=== PATIENT | female | born 1965 | race Caucasian/White ===

== ENCOUNTER 2021-03-31 09:22 | Emergency (ER) | payer MEDICAID, SELFPAY ==
[2021-03-31] VITALS (8 sets, daily range): BP systolic 142–178; BP diastolic 78–96; PULSE 68–101; RESP 12–17; TEMP 36.8; O2SAT 97–100; BMI 21.6
--- NOTE | 2021-03-31 09:31 | HMH.EDGENADL ---
ED Disposition Clinical Impression: Gastritis Qualifiers: Gastritis type: unspecified gastritis Chronicity: unspecified Gastritis bleeding: presence of bleeding unspecified Qualified Code(s): K29.70 - Gastritis, unspecified, without bleeding Disposition: Home, Self-Care Condition on Discharge: Good Referrals: Johanna England MD [Primary Care Provider] - 3 days Time of Disposition: 12:36 - Critical Care Critical Care Time: No Attestation: On , the high probability of a clinically significant, sudden or life threatening deterioration of the following system(s) required my full and direct attention, intervention and personal management. The time I documented below is in addition to time spent performing reported procedures but includes the following listed in this critical care notation. Medical Decision Making - Medical Records Medical records reviewed: Yes: I reviewed the patient's medical records. - Fernando Inquiry Pt receiving controlled substance: No Vital Signs: 03/31/21 09:23 03/31/21 09:59 03/31/21 10:02 Temperature 98.3 F Temperature Source Oral Pulse Rate 97 H 81 Pulse Rate [Right] 101 H Respiratory Rate 14 16 Blood Pressure 157/96 H 172/90 H Blood Pressure [Right Arm] 166/95 H Blood Pressure Mean 121 Blood Pressure Mean [Right Arm] 118 Blood Pressure Source Automatic Cuff Blood Pressure Position Sitting 02 Sat by Pulse Oximetry 98 97 100 Oxygen Delivery Method Room Air Room Air 03/31/21 10:15 03/31/21 11:00 03/31/21 11:45 Temperature Temperature Source Pulse Rate 85 68 91 H Pulse Rate [Right] Respiratory Rate 12 17 16 Blood Pressure 178/78 H 151/80 H 159/79 H Blood Pressure [Right Arm] Blood Pressure Mean Blood Pressure Mean [Right Arm] Blood Pressure Source Blood Pressure Position 02 Sat by Pulse Oximetry 100 99 98 Oxygen Delivery Method 03/31/21 12:00 Temperature Temperature Source Pulse Rate 75 Pulse Rate [Right] Respiratory Rate 13 Blood Pressure 165/85 H Blood Pressure [Right Arm] Blood Pressure Mean Blood Pressure Mean [Right Arm] Blood Pressure Source Blood Pressure Position 02 Sat by Pulse Oximetry 99 Oxygen Delivery Method - Lab Data Lab results reviewed: Yes: I reviewed the patient's lab results. Lab Results 03/31/21 09:50: WBC 5.7, RBC 4.55, Hgb 13.7, Hct 40.6, MCV 89.3, MCH 30.1, MCHC 33.7, RDW 14.0, Plt Count 189, MPV 9.6, Neut % (Auto) 71.8, Lymph % (Auto) 21.3, [place] % (Auto) 4.9, Eos % (Auto) 1.7, Baso % (Auto) 0.3, Neut # (Auto) 4.1, Lymph # (Auto) 1.2, [place] # (Auto) 0.3, Eos # (Auto) 0.1, Baso # (Auto) 0.0 03/31/21 09:50: Sodium 138, Potassium 3.9, Chloride 102, Carbon Dioxide 29, Anion Gap 10.9, BUN 10, Creatinine 0.90, Estimated Creat Clear 62, Estimated GFR 65, Est GFR ( Amer) 79, Glucose 101 H, Calcium 9.4, Troponin I < 0.01 03/31/21 09:50: Total Bilirubin 0.5, Direct Bilirubin 0.3, Conjugated Bilirubin 0.0, Indirect Bilirubin 0.2, Unconjugated Bilirubin 0.3, AST 21, ALT 14, Alkaline Phosphatase 86, Total Protein 7.6, Albumin 4.3 Result diagrams: 03/31/21 09:50 03/31/21 09:50 Orders (Tests/Meds): ED MEDICATIONS Discontinued Medications Generic Name Dose Route Start Last Admin Trade Name Freq PRN Reason Stop Dose Admin Belladonna Alkaloids 60 ml 03/31/21 09:46 03/31/21 09:49 Gi Cocktail 60ml Udc PO 03/31/21 09:47 60 ml ONCE ONE Administration Ondansetron HCl 4 mg 03/31/21 10:23 03/31/21 10:25 Ondansetron 4mg/2ml Vial IV 03/31/21 10:24 4 mg ONCE ONE Administration ORDERS Category Date Time Status Troponin I Q3H Lab 03/31/21 12:30 Ordered Troponin I Q3H Lab 03/31/21 15:30 Ordered - Radiology Data #1 Image(s): Chest Image Reviewed: Yes I have reviewed radiologist's interpretation Preliminary Findings: Normal/NAD - ECG Data Tracing #1 I reviewed this ECG and interpreted as documented below: Normal sinus rhythm, 95 bpm, no ST e
--- NOTE | 2021-03-31 09:32 | XR_ITS ---
PROCEDURE: XR CHEST PORTABLE CLINICAL HISTORY: recent cath COMPARISON: No exams were available for comparison FINDINGS: The cardiomediastinal silhouette and pulmonary vascularity are within normal limits. The lungs are clear without infiltrates, suspicious nodules, or pleural effusions. There are small calcified hilar nodes and there is a small calcified granuloma right perihilar region. No acute bony abnormalities. IMPRESSION: Old granulomatous disease, no acute chest pathology Dictated by: Dr. Ej Kebede MD 03/31/2021 09:46 Dr. Ej Kebede MD in [facility] 03/31/2021 09:46
--- NOTE | 2021-03-31 09:33 | ECG_ITS ---
APPROVED REPORT Exam: Resting ECG HR:95 bpm ECG Measurements Heart Rate 95 AXES AL 136 P 75 QRSd 94 QRS 178 QT 378 T 77 QTc 475 Conclusion Normal sinus rhythm Possible Left atrial enlargement Right axis deviation Incomplete right bundle branch block Right ventricular hypertrophy Abnormal ECG Electronically signed by : Fabricio Victor, 04/01/2021 18:06:53
--- NOTE | 2021-03-31 09:58 | PC.NURSE ---
v/s delayed due to attempting IV access
[2021-03-31 10:00] LABS: Basophils % 0.3 % (0.1-2.0); Eosinophils # 0.1 K/mm3 (0.0-0.4); Eosinophils % 1.7 % (0.1-12.0); Hematocrit 40.6 % (37.0-47.0); Hemoglobin 13.7 g/dL (12.2-16.2); Lymphocytes # 1.2 K/mm3 (0.7-4.5); Lymphocytes % 21.3 % (10-50); Mean Corpuscular HGB Conc 33.7 g/dL (31.8-35.4); Mean Corpuscular Hemoglobin 30.1 pg (27.0-31.2); Mean Corpuscular Volume 89.3 fl (81-99); Mean Platelet Volume 9.6 fl (7.4-10.4); Monocytes # 0.3 K/mm3 (0.1-1.0); Monocytes % 4.9 % (1.7-9.3); Neutrophils # 4.1 K/mm3 (1.8-7.8); Neutrophils % 71.8 % (37.0-80.0); Platelet Count 189 K/mm3 (142-424); Red Blood Count 4.55 M/mm3 (4.20-5.40); White Blood Count 5.7 K/mm3 (4.8-10.8)
[2021-03-31 10:10] LABS: Anion Gap 10.9 mEq/L (5-15); Blood Urea Nitrogen 10 mg/dl (7-17); Calcium 9.4 mg/dl (8.4-10.2); Carbon Dioxide 29 mmol/L (22.0-30.0); Chloride 102 mmol/L (98-107); Creatinine Clearance Estimated 62 mL/min (50-200); Estimated Glomerular Filt Rate 65 ml/min (>60); GFR (African American) 79 ML/MIN (>60); Glucose 101 mg/dl (74-100); Potassium 3.9 mmoL/L (3.5-5.1); Sodium 138 mmol/L (136-145)
[2021-03-31 10:11] LABS: Alanine Aminotransferase 14 U/L (12-78); Albumin Level 4.3 g/dl (3.5-5.0); Alkaline Phosphatase 86 U/L (38-126); Aspartate Amino Transferase 21 U/L (14-36); Bilirubin,Direct 0.3 mg/dl (0.0-0.4); Bilirubin,Indirect 0.2 mg/dL (0.0-0.9); Bilirubin,Total 0.5 mg/dl (0.2-1.3); Bilirubin,Unconjugated 0.3 mg/dL (0.0-1.1); Total Protein,Serum 7.6 g/dl (6.3-8.2)
--- NOTE | 2021-03-31 10:17 | PC.NURSE ---
Patient complains of worsening RLQ pain. ER physician made aware
[2021-03-31 10:26] LABS: Troponin I < 0.01 ng/ml (0.00-0.034)
--- NOTE | 2021-03-31 10:35 | PC.NURSE ---
PT C/O SUDDEN ONSET OF CHEST PAIN THAT IS DIFFERENT REPEAT EKG BEING DONE PT VERY ANXIOUS , AND SHAKING
--- NOTE | 2021-03-31 11:19 | CT_ITS ---
PROCEDURE: CT ABDOMEN PELVIS WO CON CLINICAL INDICATION: RLQ PAIN COMPARISON: No exams were available for comparison TECHNIQUE: Axial images obtained with sagittal and coronal reformats. All CT scans at the facility use one or more dose reduction, viz: automated exposure control, ma/kV adjustment per patient size (including targeted exams where dose is matched to indication, i.e. head), or iterative reconstruction technique. FINDINGS: Lower thorax: No acute finding plexus scarring left posterior gutter. Cardiac exams is normal. ABDOMEN: Liver: There is a 1 cm hypodense subcortical lesion posterior aspect right lobe of the liver likely a hepatic cyst. The liver is otherwise unremarkable. Gallbladder: Post cholecystectomy Pancreas: No masses or peripancreatic fluid collections. Spleen: unremarkable Adrenals: unremarkable Kidneys/ureters: The kidneys are normal in size and no calculi and there is no obstructive uropathy. ABDOMEN & PELVIS: Stomach bowel: There is a small hiatal hernia. The stomach is unremarkable. The small bowel appears normal. Post appendectomy. There is mild scattered stool and gas seen throughout the colon. There are few scattered diverticuli of the lower descending and sigmoid colon but there is no evidence of diverticulitis. Peritoneum: No abnormal fluid collections. No obvious inflammatory changes. No free air. Lymph nodes: No enlarged lymph nodes apparent. Vasculature: There is diffuse arthrosclerotic calcification of the infrarenal aorta and proximal common iliac arteries but there is no aneurysm. Bones: No acute fracture PELVIS: Reproductive: The uterus is normal in size and retroverted. Bladder: The urinary bladder is moderately distended with urine and appears normal, there is no free fluid in the pelvis. Appendix: Post appendectomy IMPRESSION: Mild diverticulosis lower descending and sigmoid colon without diverticulitis, prominently retroverted uterus, no other significant abnormality noted Dictated by: Dr. Ej Kebede MD 03/31/2021 12:08 Dr. Ej Kebede MD in [facility] 03/31/2021 12:08
--- NOTE | 2021-03-31 11:47 | PC.NURSE ---
Pt to rad.
--- NOTE | 2021-03-31 12:22 | PC.NURSE ---
Attempted to call Dr Newberry office and they are out to lunch. Will try to call back shortly
== END 2021-03-31 12:45 | disposition home or self-care (01) ==
PROVIDERS: Emergency Provider Family Medicine; PCP Family Medicine
DX: K29.70 Gastritis, unspecified, without bleeding (principal); K21.9 Gastro-esophageal reflux disease without esophagitis; Z88.8 Allergy status to other drugs, medicaments and biological substances
CPT/HCPCS: 71045; 74176; 80048; 80076; 84484; 85025; 93005; 99282; J2405

== ENCOUNTER 2025-04-08 09:24 | Outpatient (CLI) | payer MEDICAID, SELFPAY ==
--- OUTSIDE RECORDS SUMMARY | 2025-03-31 06:47 | XMS_ITS | Encounter Summary ---
Author Organization Healthcare Address [address] [place] [address] Care Team Providers Care Client Service Manager Name Role Phone Alfa Foreman APRN Primary Care Provider [phone] Reason for Visit * Reason Comments Abdominal Pain Nausea Encounter Details Date Type Department Care Team ([facility] st Contact Info) Description 03/31/2025 6:47 AM EDT - 03/31/2025 7:09 AM EDT Emergency [facility] Emergency Department [address] [place] [address] Eloped from emergency department (Primary Dx) Discharge Disposition: Elopement Social History Tobacco Use Types Packs/Day Years Used Date Smoking Tobacco: Former Cigarettes Smokeless Tobacco: Never Comments:Quit smoking 2018 Alcohol Use Standard Drinks/Week Comments Never 0 (1 standard drink = 0.6 oz pur e alcohol) Comments No Sex and Gender Information Value Date Recorded Sex Assigned at Not on file Legal Sex Female 8:23 PM EDT Gender Identity Not on file Sexual Orientation Not on file documented as of this encounter Last Filed Vital Signs Vital Sign Reading Time Taken Comments Blood Pressure 144/93 03/31/2025 6:46 AM EDT Pulse 97 03/31/2025 6:46 AM EDT Temperature 36.4 C (97.6 F) 03/31/2025 6:46 AM EDT Respiratory Rate 14 03/31/2025 6:46 AM EDT Oxygen Saturation 99% 03/31/2025 6:46 AM EDT Inhaled Oxygen Concentration - - Weight - - Height - - Body Mass Index - - documented in this encounter Medications at Time of Discharge cholecalciferol 10 MCG (400 UNIT) tablet Take 800 Units by mouth 1 (one) time each day. 05/25/2021 clopidogrel (Plavix) 75 MG tablet TAKE ONE (1) TABLET (75 MG) BY ORAL ROUTE ONCE DAILY 08/04/2021 diphenhydrAMINE (Benadryl Allergy) 25 MG capsule Take 1 capsule by mouth every 6 hours as needed for allergies or itching. 01/06/2017 GNP Aspirin Low Dose 81 MG EC tablet TAKE ONE (1) TABLET EVERY DAY 01/22/2021 HYDROcodone-acet aminophen ([place]) 5-325 MG tablet Take 1 tablet (5 mg of hydrocodone) by mouth 2 (two) times a day if needed for moderate pain. multivitamin (Theragran-M) tablet Take 1 tablet by mouth daily. nitroglycerin (Nitrostat) 0.4 MG SL tablet DISSOLVE ONE TABLET ON TONGUE NEEDED FOR CHEST PAIN. MAY REPEAT EVERY 5 MINS X 3 DOSES. NO RELIEF, CALL 03/25/2021 ProAir HFA 108 (90 Base) MCG/ACT inhaler INHALE TWO (2) PUFFS EVERY 4-6 HOURS BY INHALATION ROUTE NEEDED. 07/12/2021 documented as of this encounter Miscellaneous Notes * ED Provider Notes - Mike Mayorga, - 03/31/2025 6:41 AM EDT Images from the original note were not included. - HPI Chief Complaint Patient presents with Abdominal Pain Nausea This is a 60-year-old female patient who presented to the emergency department for abdominal pain per triage note. Per triage note the patient has reported gallstones. Prior to obtaining history or performing a physical exam the patient eloped from the emergency department. I was unable to have a [id number] encounter with the patient prior to her leaving Patient History Past Medical History[1] Surgical History[2] Family History[3] Social History[4] Allergies: Allergies[5] Physical Exam ED Triage Vitals [03/31/25 0646] Temp Heart Rate Resp BP 36.4 ??C (97.6 ??F) 97 14 (!) 144/93 SpO2 Temp Source Heart Rate Source Patient Position 99 % Oral -- Sitting BP Location FiO2 (%) Right arm -- Physical Exam Unable to perform secondary to patient eloping prior to [id number] assessment No data recorded ED Course & MDM - Assessment: 60 y.o. female presents to ED with complaint of abdominal pain, per triage note Prior to my [id number] encounter with the patient and prior to obtaining any history or performing any physical exam she eloped from the emergency department. Clinical Impressions as of 04/01/25 1412 Eloped from emergency department Ultimately, this patient was Eloped ED Prescriptions None Disposition Patient Directed Discharge Pt eloped - [1] Past Medical History: Diagnosis Date COPD (chronic obstructive pulmonary disease) (CMS/[facility]) Coronary artery disease Diverticulitis of intestine, part unspecified, without perforation or abscess without bleeding Diverticulitis Nonischemic cardiomyopathy (CMS/[facility]) s/p ICD 01/2023 Personal history of other diseases of the digestive system History of ulcerative colitis Personal history of other diseases of the musculoskeletal system and connective tissue History of arthritis Personal history of other endocrine, nutritional and metabolic disease History of hypothyroidism PONV (postoperative nausea and vomiting) [2] Past Surgical History: Procedure Laterality Date APPENDECTOMY N/A Appendectomy from [facility] CARDIAC CATHETERIZATION COLONOSCOPY CORONARY ANGIOPLASTY DILATION AND CURETTAGE OF UTERUS N/A Dilation And Curettage from [facility] ERCP GALLBLADDER SURGERY INSERT / REPLACE / REMOVE PACEMAKER OTHER SURGICAL HISTORY N/A Diagnostic Esophagogastroduodenoscopy from [facility] TUBAL LIGATION N/A Tubal Ligation from [facility] [3] Family History Problem Relation Name Age of Onset Conversions - Other Mother Back problem Thyroid disease Mother Heart disease Father Thyroid disease Sister Cardiac disorder Other Hypertension Other Thyroid disease Other Anesthesia problems Neg Hx Malig Hyperthermia Neg Hx [4] Tobacco Use Smoking status: Former Types: Cigarettes Smokeless tobacco: Never Tobacco comments: Quit smoking 2017 Vaping Use Vaping status: Never Used Substance Use Topics Alcohol use: Never Drug use: Never [5] Allergies Allergen Reactions Iv Contrast Angioedema Chest pain, facial swelling. Has tolerated contrast with premedication in the past Penicillins Swelling Repatha [Evolocumab] Anaphylaxis Statins Swelling Dilaudid [Hydromorphone] Nausea Levofloxacin Unknown - Patient states they do not know rxn details Lisinopril Unknown - Patient states they do not know rxn details Metoprolol Unknown - Patient states they do not know rxn details Nitrofurantoin Unknown - Patient states they do not know rxn details Mike Mayorga, Resident 04/01/25 1412 Cosigned by Jessee Torres MD at 04/02/2025 11:33 AM EDT Associated attestation - Jessee Torres MD - 04/02/2025 11:33 AM EDT I saw and evaluated the patient with the resident/fellow. I discussed the case with the resident/fellow and agree with the findings and plan as documented. * ED Triage Notes - Marek Briggs RN - 03/31/2025 6:41 AM EDT Pt has hx of gallstones, endorsing nausea and RUQ abd pain x1 month. documented in this encounter Plan of Treatment Not on file documented as of this encounter Visit Diagnoses Diagnosis Eloped from emergency department- Primary documented in this encounter Care Teams Client Service Manager Relationship Specialty Start Date End Date Alfa Foreman APRN [address] [place] [id number] PCP - General 02/19/21 documented as of this encounter
--- OUTSIDE RECORDS SUMMARY | 2025-04-08 09:26 | XMS_ITS | Encounter Summary ---
Author Organization [facility] ([place], [place], [place], [place]) Address [address] [place] [address] Care Team Providers Care Business Systems Manager Name Role Phone Ivory Sam APRN Primary Care Provider [phone] Encounter Details Date Type Department Care Team (Late st Contact Info) Description 07/27/2021 Transcribed Document [facility] [place] Family Medicine [address] [place] [address] ProviderOtcavio MD [address] [place] [address] Social History Tobacco Use Types Packs/Day Years Used Date Smoking Tobacco: Never Assessed Comments Unknown Sex and Gender Information Value Date Recorded Sex Assigned at Female 04/05/2022 12:50 PM CDT Legal Sex Female 12:50 PM CDT Gender Identity Female 04/05/2022 12:50 PM CDT Sexual Orientation Straight 09/12/2022 10 :24 AM 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 Name: ROSALEE YOUNG/Sex: 1965 Female Med Rec #: [id number] Physician: DEEP ARREOLA MD Financial #: [id number] Pt. Type: E Room/Bed: [facility] [place]/ Admit/Disch: 07/27/21 07:07:00 - Institution: [facility] [place] Endo - Case Attendance Entry 1 Entry 2 Entry 3 Case Attendee DEEP ARREOLA MD Edmundson, Stephanie, RN Alka Mccormack Rn Role Performed Surgeon/Proceduralist, Power Crane Operator, First Power Crane Operator, Second First Time In 07/27/21 08:24:00 07/27/21 08:24:00 07/27/21 08:24:00 Time Out 07/27/21 08:40:00 07/27/21 08:40:00 07/27/21 08:40:00 Procedure Colonoscopy Colonoscopy Colonoscopy Other Attendee Superficial Wound Closed By: Last Modified By: Flores Prince Edmundson, Stephanie, Edmundson, Stephanie, JOSE 07/27/21 08:38:05 RN 07/27/21 08:38:05 RN 07/27/21 08:38:05 Entry 4 Entry 5 Entry 6 Case Attendee Cynthia Tinsley QURESHI, HERA, DO RODRIGUEZ, AMARILYS Reza, NA BIOMEDICAL ENGINEERING SUPERVISOR Role Performed Scrub, First Anesthesiologist of COMMUNICATION CLERK/Nurse Medicaid Business Analyst Record Time In 07/27/21 08:24:00 07/27/21 08:24:00 07/27/21 08:24:00 Time Out 07/27/21 08:40:00 07/27/21 08:40:00 07/27/21 08:40:00 Procedure Colonoscopy Colonoscopy Colonoscopy Other Attendee Superficial Wound Closed By: Last Modified By: Flores Prince Edmundson, Stephanie, Edmundson, Stephanie, JOSE 07/27/21 08:38:05 RN 07/27/21 08:38:05 RN 07/27/21 08:38:05 [facility] [place] Endo - Case Attendance Audit 07/27/21 08:38:05 Cigar Making Supervisor: [id number] Modifier: [id number] 1 <+> Time Out 1 <*> Procedure Colonoscopy 2 <+> Time Out 2 <*> Procedure Colonoscopy 3 <+> Time Out 3 <*> Procedure Colonoscopy 4 <+> Time Out 4 <*> Procedure Colonoscopy 5 <+> Time Out 5 <*> Procedure Colonoscopy 6 <+> Time Out 6 <*> Procedure Colonoscopy 07/27/21 08:25:52 Cigar Making Supervisor: [id number] Modifier: [id number] 1 <+> Time In 1 <*> Procedure Colonoscopy 2 <+> Time In 2 <*> Procedure Colonoscopy 3 <+> Time In 3 <*> Procedure Colonoscopy 4 <+> Time In 4 <*> Procedure Colonoscopy 5 <+> Time In 5 <*> Procedure Colonoscopy 6 <+> Time In 6 <*> Procedure Colonoscopy 07/27/21 08:20:19 Cigar Making Supervisor: [id number] Modifier: [id number] <+> 1 Procedure 2 <*> Procedure Colonoscopy 3 <*> Procedure Colonoscopy 4 <*> Procedure Colonoscopy 5 <*> Procedure Colonoscopy 6 <*> Procedure Colonoscopy 07/27/21 08:16:15 Cigar Making Supervisor: [id number] Modifier: [id number] <+> 6 Case Attendee <+> 6 Role Performed <+> 6 Procedure 07/27/21 08:14:39 Cigar Making Supervisor: [id number] Modifier: [id number] <+> 5 Case Attendee <+> 5 Role Performed <+> 5 Procedure 07/27/21 08:02:39 Cigar Making Supervisor: [id number] Modifier: [id number] <+> 4 Case Attendee <+> 4 Role Performed <+> 4 Procedure [facility] - Case Times Entry 1 Patient In Room Time 07/27/21 08:24:00 Out Room Time 07/27/21 08:40:00 Anesthesia Start Time 07/27/21 08:24:00 Stop Time 07/27/21 08:37:00 Surgery / Procedure Times Start Time 07/27/21 08:28:00 Stop Time 07/27/21 08:37:00 Last Modified By: Flores Prince RN 07/27/21 08:37:55 [facility] - Case Times Audit 07/27/21 08:37:55 Cigar Making Supervisor: [id number] Modifier: [id number] <+> 1 Out Room Time <+> 1 Stop Time <+> 1 Stop Time 07/27/21 08:28:07 Cigar Making Supervisor: [id number] Modifier: [id number] <+> 1 Start Time [facility] - Delays Entry 1 Delay Reason Other, Surgeon late - no reason Duration 24 Minute(s) Last Modified By: Flores Prince RN 07/27/21 08:27:19 [facility] - Departure from OR Entry 1 Integumentary Assessment Integumentary WDL Assessment WDL Transfer/Handoff Transfer to PACU Phase I Post-op Transport Stretcher/Gurney Via Patient Transport Flores Prince, Accompanied by RN, AMARILYS RODRIGUEZ NA Last Modified By: Flores Prince RN 07/27/21 08:38:54 [facility] - Departure from OR Audit 07/27/21 08:38:54 Cigar Making Supervisor: [id number] Modifier: [id number] 1 <*> Patient Transport Accompanied by Flores Prince RN [facility] - Endoscopy Details Entry 1 Abdomen Procedure Soft, Non-Tender Assessment Procedure Abdomen 07/27/21 08:24:00 Assessment D/T Radio Frequency Ablation Abdominal Pressure Last Modified By: Flores Prince RN 07/27/21 08:37:45 [facility] - Endoscopy Details Audit 07/27/21 08:37:45 Cigar Making Supervisor: [id number] Modifier: [id number] <+> 1 Procedure Abdomen Assessment D/T [facility] - Fire Risk Assessment Entry 1 Fire Info Surgical Site or 0- No Incision Above the Xyphoid Open O2 Source 1- Yes (Mask or Cannula) Available Ignition 1- Yes (ESU, Laser, Light Source) Fire Risk 2 Assessment Score Fire Score Fire Risk Yes Assessment Complete Fire Risk Flores Prince RN Assessment Verified By Fire Risk 07/27/21 08:24:00 Assessment Verified Date/Time Fire Risk High Risk Protocol Yes Implemented Standard Fire Yes Safety Precautions Followed Last Modified By: Flores Prince RN 07/27/21 08:27:31 [facility] - General Case Leadership Program Intern 1 Case Information OR Endo 01 [facility] Case Level 1 Room Verified Yes Wound Class III - Contaminated Specialty Gastroenterology Anesthesia Type MAC ASA Class 3 Diagnosis Preop Diagnosis Rectal bleeding Postop Diagnosis Normal scope. Hemorrhoids. Last Modified By: Flores Prince RN 07/27/21 08:37:09 [facility] - General Case Data Audit 07/27/21 08:37:09 Cigar Making Supervisor: [id number] Modifier: [id number] <+> 1 Postop Diagnosis 07/27/21 08:28:02 Cigar Making Supervisor: [id number] Modifier: [id number] <+> 1 ASA Class 07/27/21 08:04:44 Cigar Making Supervisor: [id number] Modifier: [id number] 1 <*> Preop Diagnosis K62.5 [facility] [place] Endo - Intraoperative Assessment Entry 1 Handoff Method Bedside/Face to face Valid History / Yes Physical in Chart Preoperative Yes Checklist Reviewed/Evaluated Patient is Latex No Sensitive Level of WDL Consciousness (WDL = Alert, Oriented to Person, Place, and Time) Present Upon IVs, ECG monitored Arrival to OR Last Modified By: Flores Prince RN 07/27/21 08:28:47 [facility] [place] Endo - Intraoperative Assessment Audit 07/27/21 08:28:47 Cigar Making Supervisor: [id number] Modifier: [id number] <+> 1 Level of Consciousness (WDL = Alert, Oriented to Person, Place, and Time) <+> 1 Valid History / Physical in Chart [facility] [place] Endo - Intraoperative Equipment Entry 1 Type Scope Equipment Intraop Monitoring Blood Pressure Arm, left upper Location Pulse Oximeter Hand, right Probe Site Antiembolic Devices Scopes Flexible Endoscopes Colonoscope, Peds Used Scope Serial [id number] Number/Identificatio n Number Photo/Video Documentation Photo Yes Video No Last Modified By: Flores Prince RN 07/27/21 08:25:04 [facility] [place] Endo - Intraoperative Equipment Audit 07/27/21 08:25:04 Cigar Making Supervisor: [id number] Modifier: [id number] 1 <-> Electrocardiogram (ECG) Electrode Placement 1 <+> Type 07/27/21 08:16:36 Cigar Making Supervisor: [id number] Modifier: [id number] <+> 1 Photo <+> 1 Video <+> 1 Blood Pressure Location <+> 1 Pulse Oximeter Probe Site <+> 1 Flexible Endoscopes Used <+> 1 Scope Serial Number/Identification Number [facility] [place] Endo - Patient Positioning Entry 1 Procedure Colonoscopy Body Position Lateral, right side up Feet Uncrossed Yes Positioned By Flores Prince RN, Cynthia Tinsley, BIOMEDICAL ENGINEERING SUPERVISOR Position Verified Last Modified By: Flores Prince RN 07/27/21 08:18:05 [facility] [place] Endo - Patient Positioning Audit 07/27/21 08:18:05 Cigar Making Supervisor: [id number] Modifier: [id number] 1 <*> Procedure Colonoscopy 07/27/21 08:04:03 Cigar Making Supervisor: [id number] Modifier: [id number] Entry 1 was deleted. Higher numbered entries shifted one position to fill the gap. <-> 1 Body Position Lateral, right side up <-> 1 Right Arm Position Resting at side <-> 1 Left Arm Position Resting at side <-> 1 Right Leg Position Other <-> 1 Left Leg Position Other <-> 1 Feet Uncrossed Yes <-> 1 Pressure Points Checked Yes <-> 1 Procedure Colonoscopy <-> 1 Positioning Verified by Surgeon Yes <-> 1 Position Comments Right leg over Left leg uncrossed <-> 1 Positioned By Flores Prince RN [facility] - Sign In Entry 1 Patient, Site, Yes Procedure Identified Surgical Consent Yes Confirmed Surgical Site N/A Marked by person performing procedure Airway Hypothermia Risk No Warming Measures Yes Taken Last Modified By: Flores Prince RN 07/27/21 08:27:50 [facility] - Sign Out Entry 1 RN Confirmation Surgical Yes Procedure(s) Identified Instrument, Sponge N/A and Sharps Counts Correct/Documented Equipment Problems N/A Documented Specimen Labeled N/A Correctly Urinary Catheter N/A Documented in IView Safety Checklist Yes Elements Complete? RN Sign Out Flores Prince RN Signature RN Sign Out 07/27/21 08:40:00 Signature Date/Time Plan of Care Outcome - Fire Risk OUTCOME STATEMENT: Goal met Patient is free from injury related to surgical fire Plan of Care Outcome - Pt Positioning OUTCOME STATEMENT: Goal met Absence of signs and symptoms of positioning injury. Plan of Care Outcome - Skin Prep OUTCOME STATEMENT: Goal met Intraoperative care is consistent with measures to prevent infection Plan of Care Outcome - Xray/Images OUTCOME STATEMENT: N/A Absence of observable signs or symptoms of radiation injury Plan of Care Outcome - Counts OUTCOME STATEMENT: N/A Absence of signs and symptoms of injury related to extraneous objects Last Modified By: Flores Prince RN 07/27/21 08:38:46 [facility] - Sign Out Audit 07/27/21 08:38:46 Cigar Making Supervisor: [id number] Modifier: [id number] 1 <*> Specimen Labeled Correctly Yes 1 <+> RN Sign Out Signature Date/Time 1 <*> Urinary Catheter Documented in IView N/A [facility] - Surgical Procedures Entry 1 Procedure Colonoscopy Primary Procedure Yes Primary Surgeon DEEP ARREOLA MD Start 07/27/21 08:28:00 Stop 07/27/21 08:37:00 Physician States 07/27/21 08:31:00 Cecum Reached Anesthesia Type MAC Specialty Gastroenterology Wound Class III - Contaminated Last Modified By: Flores Prince RN 07/27/21 08:38:18 [facility] - Surgical Procedures Audit 07/27/21 08:38:18 Cigar Making Supervisor: [id number] Modifier: [id number] <+> 1 Stop 07/27/21 08:36:48 Cigar Making Supervisor: [id number] Modifier: [id number] 1 <*> Procedure Colonoscopy 1 <+> Start 1 <+> Physician States Cecum Reached [facility] Endo - Time Out Entry 1 Procedure to be Colonoscopy Performed Time Out Time Out Pause Time 07/27/21 08:25:00 All activity Yes suspended (unless life threatening emergency) Team Verbally Correct patient Confirms Information identity, Consent form is present and accurate, Agreement on the procedure to be done, Correct patient position Antibiotic N/A Prophylaxis Administered Or In Progress Within the Last 60 Minutes Beta Jennifer N/A Administered Venous N/A Thromboembolism Prophylaxis Required Anticipated Critical Events Surgeon None expected Last Modified By: Flores Prince RN 07/27/21 08:26:32 Case Comments <None> Finalized By: Flores Prince RN Document Signatures Signed By: Flores Prince RN 07/27/21 08:39 documented in this encounter Plan of Treatment Not on file documented as of this encounter Visit Diagnoses Not on filedocumented in this encounter Care Teams Business Systems Manager Relationship Specialty Start Date End Date Ivory Sam, INSPECTOR ALIGNING [address] [place] [address] PCP - General Nurse Practitioner 01/19/23 documented as of this encounter
--- OUTSIDE RECORDS SUMMARY | 2025-04-08 09:26 | XMS_ITS | Encounter Summary ---
Author Organization [employer] ([place], [place], [place], [place]) Address [address] [place] [address] Care Team Providers Care Jumpbasting Canvas Baster Name Role Phone Cecy Ivory SEBASTIÁN Primary Care Provider [phone] Encounter Details Date Type Department Care Team (Late st Contact Info) Description 07/27/2021 Transcribed Document [facility] [place] Family Medicine [facility] [place] [address] ProviderOctavio MD [address] [place], [place] [id number] Social History Tobacco Use Types Packs/Day Years Used Date Smoking Tobacco: Never Assessed Comments Unknown Sex and Gender Information Value Date Recorded Sex Assigned at Female 04/05/2022 12:50 PM CDT Legal Sex Female 12:50 PM CDT Gender Identity Female 04/05/2022 12:50 PM CDT Sexual Orientation Straight 09/12/2022 10 :24 AM ACADEMIC TUTOR documented as of this encounter Miscellaneous Notes * Cerner Conversion Note - Historical ProviderMD - 07/27/2021 8:50 AM CDT Patient Education Materials Follows: Hemorrhoids Hemorrhoids are swollen veins that may develop: ??? In the butt (rectum). These are called internal hemorrhoids. ??? Around the opening of the butt (anus). These are called external hemorrhoids. Hemorrhoids can cause pain, itching, or bleeding. Most of the time, they do not cause serious problems. They usually get better with diet changes, lifestyle changes, and other home treatments. What are the causes? This condition may be caused by: ??? Having trouble pooping (constipation). ??? Pushing hard (straining) to poop. ??? Watery poop (diarrhea). ??? . ??? Being very overweight (obese). ??? Sitting for long periods of time. ??? Heavy lifting or other activity that causes you to strain. ??? Anal sex. ??? Riding a bike for a long period of time. What are the signs or symptoms? Symptoms of this condition include: ??? Pain. ??? Itching or soreness in the butt. ??? Bleeding from the butt. ??? Leaking poop. ??? Swelling in the area. ??? One or more lumps around the opening of your butt. How is this diagnosed? A doctor can often diagnose this condition by looking at the affected area. The doctor may also: ??? Do an exam that involves feeling the area with a gloved hand (digital rectal exam). ??? Examine the area inside your butt using a small tube (anoscope). ??? Order blood tests. This may be done if you have lost a lot of blood. ??? Have you get a test that involves looking inside the colon using a flexible tube with a camera on the end (sigmoidoscopy or colonoscopy). How is this treated? This condition can usually be treated at home. Your doctor may tell you to change what you eat, make lifestyle changes, or try home treatments. If these do not help, procedures can be done to remove the hemorrhoids or make them smaller. These may involve: ??? Placing rubber bands at the base of the hemorrhoids to cut off their blood supply. ??? Injecting medicine into the hemorrhoids to shrink them. ??? Shining a type of light energy onto the hemorrhoids to cause them to fall off. ??? Doing surgery to remove the hemorrhoids or cut off their blood supply. Follow these instructions at home: Eating and drinking ??? Eat foods that have a lot of fiber in them. These include whole grains, beans, nuts, fruits, and vegetables. ??? Ask your doctor about taking products that have added fiber (fibersupplements). ??? Reduce the amount of fat in your diet. You can do this by: ? Eating low-fat dairy products. ? Eating less red meat. ? Avoiding processed foods. ??? Drink enough fluid to keep your pee (urine) pale yellow. Managing pain and swelling ??? Take a warm-water bath (sitz bath) for 20 minutes to ease pain. Do this 3?4 times a day. You may do this in a bathtub or using a portable sitz bath that fits over the toilet. ??? If told, put ice on the painful area. It may be helpful to use ice between your warm baths. ? Put ice in a plastic bag. ? Place a towel between your skin and the bag. ? Leave the ice on for 20 minutes, 2?3 times a day. General instructions ??? Take kcpg-xwy-wrmmniu and prescription medicines only as told by your doctor. ? Medicated creams and medicines may be used as told. ??? Exercise often. Ask your doctor how much and what kind of exercise is best for you. ??? Go to the bathroom when you have the urge to poop. Do not wait. ??? Avoid pushing too hard when you poop. ??? Keep your butt dry and clean. Use wet toilet paper or moist towelettes after pooping. ??? Do not sit on the toilet for a long time. ??? Keep all follow-up visits as told by your doctor. This is important. Contact a doctor if you: ??? Have pain and swelling that do not get better with treatment or medicine. ??? Have trouble pooping. ??? Cannot poop. ??? Have pain or swelling outside the area of the hemorrhoids. Get help right away if you have: ??? Bleeding that will not stop. Summary ??? Hemorrhoids are swollen veins in the butt or around the opening of the butt. ??? They can cause pain, itching, or bleeding. ??? Eat foods that have a lot of fiber in them. These include whole grains, beans, nuts, fruits, and vegetables. ??? Take a warm-water bath (sitz bath) for 20 minutes to ease pain. Do this 3?4 times a day. This information is not intended to replace advice given to you by your health care provider. Make sure you discuss any questions you have with your health care provider. Document Revised: 10/03/2019 Document Reviewed: 02/14/2019 [employer] Patient Education ? 2020 [employer] Pharmacology Monitored Anesthesia Care, Care After This sheet gives you information about how to care for yourself after your procedure. Your health care provider may also give you more specific instructions. If you have problems or questions, contact your health care provider. What can I expect after the procedure? After the procedure, it is common to have: ??? Tiredness. ??? Forgetfulness about what happened after the procedure. ??? Impaired judgment for important decisions. ??? Nausea or vomiting. ??? Some difficulty with balance. Follow these instructions at home: For at least 24 hours after the procedure: ??? Have a responsible adult stay with you. It is important to have someone help care for you until you are awake and alert. ??? Rest as needed. ??? Do not participate in activities in which you could fall or become injured. ??? Do not drive. ??? Do not use machinery. ??? Do not drink alcohol. ??? Do not take sleeping pills or medicines that cause drowsiness. ??? Do not make important decisions or sign legal documents. ??? Do not take care of children on your own. Eating and drinking ??? Follow the diet that is recommended by your health care provider. ??? Drink enough fluid to keep your urine pale yellow. ??? If you vomit: ? Drink water, juice, or soup when you can drink without vomiting. ? Make sure you have little or no nausea before eating solid foods. General instructions ??? Take edqy-adv-vosisca and prescription medicines only as told by your health care provider. ??? If you have sleep apnea, surgery and certain medicines can increase your risk for breathing problems. Follow instructions from your health care provider about wearing your sleep device: ? Anytime you are sleeping, including during daytime naps. ? While taking prescription pain medicines, sleeping medicines, or medicines that make you drowsy. ??? Avoid smoking. ??? Keep all follow-up visits as told by your health care provider. This is important. Contact a health care provider if: ??? You keep feeling nauseous or you keep vomiting. ??? You feel light-headed. ??? You are still sleepy or having trouble with balance after 24 hours. ??? You develop a rash. ??? You have a fever. ??? You have redness or swelling around the IV site. Get help right away if: ??? You have trouble breathing. ??? You have new-onset confusion at home. Summary ??? For several hours after your procedure, you may feel tired. You may also be forgetful and have poor judgment. ??? Have a responsible adult stay with you for at least 24 hours or until you are awake and alert. ??? Rest as told. Do not drive or operate machinery. Do not drink alcohol or take sleeping pills. ??? Get help right away if you have trouble breathing, or if you suddenly become confused. This information is not intended to replace advice given to you by your health care provider. Make sure you discuss any questions you have with your health care provider. Document Revised: 08/27/2020 Document Reviewed: 08/27/2020 [employer] Patient Education ? 2020 [employer]. Radiology Colonoscopy, Adult, Care After This sheet gives you information about how to care for yourself after your procedure. Your doctor may also give you more specific instructions. If you have problems or questions, call your doctor. What can I expect after the procedure? After the procedure, it is common to have: ??? A small amount of blood in your poop (stool) for 24 hours. ??? Some gas. ??? Mild cramping or bloating in your belly (abdomen). Follow these instructions at home: Eating and drinking ??? Drink enough fluid to keep your pee (urine) pale yellow. ??? Follow instructions from your doctor about what you cannot eat or drink. ??? Return to your normal diet as told by your doctor. Avoid heavy or fried foods that are hard to digest. Activity ??? Rest as told by your doctor. ??? Do not sit for a long time without moving. Get up to take short walks every 1?2 hours. This is important. Ask for help if you feel weak or unsteady. ??? Return to your normal activities as told by your doctor. Ask your doctor what activities are safe for you. To help cramping and bloating: ??? Try walking around. ??? Put heat on your belly as told by your doctor. Use the heat source that your doctor recommends, such as a moist heat pack or a heating pad. ? Put a towel between your skin and the heat source. ? Leave the heat on for 20?30 minutes. ? Remove the heat if your skin turns bright red. This is very important if you are unable to feel pain, heat, or cold. You may have a greater risk of getting burned. General instructions ??? If you were given a medicine to help you relax (sedative) during your procedure, it can affect you for many hours. Do not drive or use machinery until your doctor says that it is safe. ??? For the first 24 hours after the procedure: ? Do not sign important documents. ? Do not drink alcohol. ? Do your daily activities more slowly than normal. ? Eat foods that are soft and easy to digest. ??? Take hnsm-cil-hlenltl or prescription medicines only as told by your doctor. ??? Keep all follow-up visits as told by your doctor. This is important. Contact a doctor if: ??? You have blood in your poop 2?3 days after the procedure. Get help right away if: ??? You have more than a small amount of blood in your poop. ??? You see large clumps of tissue (blood clots) in your poop. ??? Your belly is swollen. ??? You feel like you may vomit (nauseous). ??? You vomit. ??? You have a fever. ??? You have belly pain that gets worse, and medicine does not help your pain. Summary ??? After the procedure, it is common to have a small amount of blood in your poop. You may also have mild cramping and bloating in your belly. ??? If you were given a medicine to help you relax (sedative) during your procedure, it can affect you for many hours. Do not drive or use machinery until your doctor says that it is safe. ??? Get help right away if you have a lot of blood in your poop, feel like you may vomit, have a fever, or have more belly pain. This information is not intended to replace advice given to you by your health care provider. Make sure you discuss any questions you have with your health care provider. Document Revised: 07/31/2020 Document Reviewed: 04/20/2020 [employer] Patient Education ? 2020 [employer] Electronically signed by Fay Boswell Conversion Refinery Operator Helper Crude Unit Cerner at 01/25/2023 12:41 PM CDT documented in this encounter Plan of Treatment Not on file documented as of this encounter Visit Diagnoses Not on filedocumented in this encounter Care Teams Jumpbasting Canvas Baster Relationship Specialty Start Date End Date Ivory Sam, AGING DEPARTMENT SUPERVISOR [address] [place] [id number] PCP - General Nurse Practitioner 01/19/23 documented as of this encounter
--- OUTSIDE RECORDS SUMMARY | 2025-04-08 09:26 | XMS_ITS | Encounter Summary ---
Author Organization [employer] ([place], [place], [place], [place]) Address [address] [place] [address] Care Team Providers Care Electric Train Driver Name Role Phone Cecy, Ivory SEBASTIÁN Primary Care Provider [phone] Encounter Details Date Type Department Care Team (Late st Contact Info) Description 07/27/2021 Transcribed Document [facility] [place] Family Medicine [facility] [place] [address] ProviderOctavio MD [address] [place], [place] [id number] Social History Tobacco Use Types Packs/Day Years Used Date Smoking Tobacco: Never Assessed Comments Unknown Sex and Gender Information Value Date Recorded Sex Assigned at Female 04/05/2022 12:50 PM CDT Legal Sex Female 12:50 PM CDT Gender Identity Female 04/05/2022 12:50 PM CDT Sexual Orientation Straight 09/12/2022 10 :24 AM 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 documented as of this encounter Miscellaneous Notes * Cerner Conversion Note - Historical ProviderMD - 07/27/2021 7:38 AM CDT Pre Procedure Adult Entered On: 07/27/2021 7:45 EDT Performed On: 07/27/2021 7:38 EDT by Lorenza Oliveira Rn Height and Weight, Clinical Dosing Height Source : Stated Height Entry Format : [place] Height, Feet : 5 ft(Converted to: 152 cm, 60 Inch) Height, Inches : 4 Inch(Converted to: 0 ft 4 Inch, 10.16 cm) Clinical Height : 162.56 cm Weight Source : Standing scale Weight Entry Format : [place] Clinical Dosing Weight : 49.18 kg Weight, Pounds : 108.2 lb Body Surface Area (BSA) : 1.51 m2 Body Mass Index : 18.6 kg/m2 (LOW) [place] Body Weight : 54 kg Lorenza Oliveira Rn - 07/27/2021 7:38 EDT Health Histories Smoking Status : Former smoker, quit more than 30 days ago Smokeless Tobacco Status : Former smokeless tobacco user, quit more than 30 days ago Lorenza Oliveira Rn - 07/27/2021 7:38 EDT Social History (As Of: 07/27/2021 07:45:49 EDT) Tobacco: Former smoker, quit more than 30 days ago Smoking Status. Never Smokeless Tobacco Status. (Last Updated: 07/27/2021 07:39:51 EDT by Lorenza Oliveira, Rn) Alcohol: Alcohol Use History Yes. Alcohol Use Frequency Socially. (Last Updated: 07/27/2021 07:40:01 EDT by Lorenza Oliveira, Rn) Substance Abuse: Drug Use Hx: No. Use in Last 12 Months: No. (Last Updated: 07/27/2021 07:40:08 EDT by Lorenza Oliveira, Rn) Nutrition/Health: Regular, Caffeine intake amount: 2-3 daily. (Last Updated: 07/27/2021 07:40:32 EDT by Lorenza Oliveira, Rn) Infectious Disease History Does patient have symptoms of COVID-19? : No Has the Patient Been Tested for COVID-19 in the last 14 days? : Yes, Patient stated results Negative Where and When was COVID19 testing completed? : [facility] [place] 07-22-21 Does the Patient state known exposure to a COVID-19 positive case in the last 14 days? : No Patient Vaccinated for COVID-19 : Not vaccinated Does Patient want a COVID-19 Vaccine? : No Lorenza Oliveira Rn - 07/27/2021 7:38 EDT Infectious Disease Risk Screening Grid Cough < 2 wks of unknown origin : NO Cough > 2 weeks : NO Blood in Sputum : NO Fever or self-reported Fever : NO Rash of unknown origin : NO Headache : NO Stiff neck : NO Night Sweats : NO Unexplained Weight Loss : NO Diarrhea (3 episode per day) : NO Lorenza Oliveira Rn - 07/27/2021 7:38 EDT Physical contact outside [place] in the last 30 days : No Hospitalized in Foreign Country : No Infectious Disease History : Chicken pox/Shingles INF Disease TB Screening Calc : 0 INF Disease Recent Travel Calc : 0 Lorenza Oliveira Rn - 07/27/2021 7:38 EDT COVID19 PreProcedure Screening Is this an Emergent or Add on Procedure? : No Date PreProcedure COVID-19 test known? : Yes Date of PreProcedure COVID-19 : 07/22/2021 EDT Has patient been isolated since the test : Yes Exposed to COVID19 symptoms since test? : No Lorenza Oliveira Rn - 07/27/2021 7:38 EDT Anesthesia/Transfusion History Family History of Anesthesia Reaction : No prior transfusion(s) Transfusion History : Prior anesthesia reaction Type of Anesthesia Reaction : Excessive nausea/vomiting Family History of Anesthesia Reaction : None Lorenza Oliveira Rn - 07/27/2021 7:38 EDT Functional Assessment Living Situation : Home Patient Lives With : Spouse Current Home Treatments : None Lorenza Oliveira Rn - 07/27/2021 7:38 EDT Rescue Suicide Severity Rating Scale (C-SSRS) CSSRS Past Month Wish to be : No CSSRS Past Month Suicidal Thoughts : No CSSRS Lifetime Suicide Behavior : No Suicide Severity Rating Score : 0 Suicide Severity Rating : No Additional Care Required at this time Lorenza Oliveira Rn - 07/27/2021 7:38 EDT Psychosocial History Currently in Unsafe Situation : No Lorenza Oliveira Rn - 07/27/2021 7:38 EDT Advance Directive Patient has Advance Directive *Q : No, patient refuses Advance Directive information Lorenza Oliveira Rn - 07/27/2021 7:38 EDT General Info Want Family/Rep/Phys Notified of Admit : Yes Name/Contact Info Fam/Rep Notified Adm : Johanna England Name/Contact Info Physician Notified Adm : NA Emergency Contact #1 : [place] Emergency Contact #1 Emergency Contact #1 Relationship : spouse Emergency Contact #2 : . Emergency Contact #2 Phone Number : . Emergency Contact #2 Relationship : . Primary Language : Omani Communication Barrier : None Events And Promotions Assistant Needed : No Lorenza Oliveira Rn - 07/27/2021 7:38 EDT Sleep Apnea Risk Assmt Hx of Obstructive Sleep Apnea Diagnosis : No Snore Loudly : No Tired, Fatigued, or Sleepy During Day : Yes Observed Stopping Breathing During Sleep : No Have/Are Being Treated for Hypertension : No BMI Greater Than 35 kg/m2 : No Age over 50 Years Old : Yes Neck Circumference Greater Than 40 cm : No Gender Male : No STOP-BANG Sleep Apnea Risk Level Score : 2 Lorenza Oliveira Rn - 07/27/2021 7:38 EDT Lorenzo Scale Lorenzo Sensory Perception : No impairment Lorenzo Moisture : Rarely moist Lorenzo Activity : Walks frequently Lorenzo Mobility : No limitation Lorenzo Nutrition : Excellent Lorenzo Friction and Shear : No apparent problem Lorenzo Score : 23 Lorenza Oliveira Rn - 07/27/2021 7:38 EDT Fall Risk Scales ABCs Fall Injury Risk Identification : None CERDA Hx Falls Immediate/Within 3 Months : No Cerda Secondary Diagnosis : No CERDA Use of Ambulatory Aid : None CERDA IV Therapy or IV Access : Yes Cerda Gait/Transferring : Normal, bedrest, immobile Cerda Mental Status : Oriented to own ability Cerda Fall Risk Score : 20 CERDA Fall Scale Risk Level : 0-24 Low Risk [place] Fall Interventions : Adequate lighting, Assistive devices within reach, Bed in low position, Call device within reach Lorenza Oliveira Rn - 07/27/2021 7:38 EDT Valuables and Belongings Valuables and Belongings : Clothing Clothing : Common streetwear Clothing Disposition : Bedside Lorenza Oliveira Rn - 07/27/2021 7:38 EDT documented in this encounter Plan of Treatment Not on file documented as of this encounter Visit Diagnoses Not on filedocumented in this encounter Care Teams Electric Train Driver Relationship Specialty Start Date End Date Ivory Sam APRN [address] [place] [id number] PCP - General Nurse Practitioner 01/19/23 documented as of this encounter
--- OUTSIDE RECORDS SUMMARY | 2025-04-08 09:26 | XMS_ITS | Encounter Summary ---
Author Organization [employer] ([place], [place], [place], [place]) Address [address] [place] [address] Care Team Providers Care Wheel Borer Name Role Phone Cecy Ivory SEBASTIÁN Primary Care Provider [phone] Encounter Details Date Type Department Care Team (Late st Contact Info) Description 08/31/2021 Transcribed Document [facility] [place] [facility] [place] [address] ProviderOctavio MD [address] [place] [place] [id number] Social History Tobacco Use Types Packs/Day Years Used Date Smoking Tobacco: Never Assessed Comments Unknown Sex and Gender Information Value Date Recorded Sex Assigned at Female 04/05/2022 12:50 PM CDT Legal Sex Female 12:50 PM CDT Gender Identity Female 04/05/2022 12:50 PM CDT Sexual Orientation Straight 09/12/2022 10 :24 AM YOGHURT MAKER documented as of this encounter Miscellaneous Notes * Cerner Conversion Note - Historical ProviderMD - 08/31/2021 7:30 AM YOGHURT MAKER Pre Procedure Adult Entered On: 08/31/2021 7:34 EST Performed On: 08/31/2021 7:30 EST by Lorenza Oliveira Rn Height and Weight, Clinical Dosing Height Source : Stated Height Entry Format : [place] Height, Feet : 5 ft(Converted to: 152 cm, 60 Inch) Height, Inches : 3 Inch(Converted to: 0 ft 3 Inch, 7.62 cm) Clinical Height : 160.02 cm Weight Source : Standing scale Weight Entry Format : [place] Clinical Dosing Weight : 49.09 kg Weight, Pounds : 108 lb Body Surface Area (BSA) : 1.49 m2 Body Mass Index : 19.2 kg/m2 [place] Body Weight : 52 kg Lorenza Oliveira Rn - 08/31/2021 7:30 EST Health Histories Smoking Status : Former smoker, quit more than 30 days ago Smokeless Tobacco Status : Never Lorenza Oliveira Rn - 08/31/2021 7:30 EST Social History (As Of: 08/31/2021 07:34:46 EST) Tobacco: Former smoker, quit more than 30 [...] days? : Yes, Patient stated results Negative Does the Patient state known exposure to a COVID-19 positive case in the last 14 days? : No Patient Vaccinated for COVID-19 : Not vaccinated Does Patient want a COVID-19 Vaccine? : No Lorenza Oliveira Rn - 08/31/2021 7:30 EST Infectious Disease Risk Screening Grid Cough < [...] day) : NO Lorenza Oliveira Rn - 08/31/2021 7:30 EST Physical contact outside [place] in the last 30 days : No Hospitalized in Foreign Country : No Infectious Disease History : Chicken pox/Shingles INF Disease TB Screening Calc : 0 INF Disease Recent Travel Calc : 0 Lorenza Oliveira Rn - 08/31/2021 7:30 EST COVID19 PreProcedure Screening Is this an Emergent or Add on Procedure? : No Date PreProcedure COVID-19 test known? : Yes Date of PreProcedure COVID-19 : 08/27/2021 EST Has patient been isolated since the test : No Exposed to COVID19 symptoms since test? : No Lorenza Oliveira Rn - 08/31/2021 7:30 EST Anesthesia/Transfusion History Family History of Anesthesia Reaction : No prior transfusion(s) Transfusion History : Prior anesthesia reaction Type of Anesthesia Reaction : Excessive nausea/vomiting Family History of Anesthesia Reaction : None Lorenza Oliveira Rn - 08/31/2021 7:30 EST Functional Assessment Living Situation : Home Current Home Treatments : None Lorenza Oliveira Rn - 08/31/2021 7:30 EST [place] Suicide Severity Rating Scale (C-SSRS) CSSRS Past Month Wish to be : No CSSRS Past Month Suicidal Thoughts : No CSSRS Lifetime Suicide Behavior : No Suicide Severity Rating Score : 0 Suicide Severity Rating : No Additional Care Required at this time Lorenza Oliveira Rn - 08/31/2021 7:30 EST Psychosocial History Currently in Unsafe Situation : No Lorenza Oliveira Rn - 08/31/2021 7:30 EST Advance Directive Patient has Advance Directive *Q : No, patient refuses Advance Directive information Lorenza Oliveira Rn - 08/31/2021 7:30 EST General Info Want Family/Rep/Phys Notified of Admit : Yes Name/Contact Info Fam/Rep Notified Adm : na Name/Contact Info Physician Notified Adm : Johanna England Emergency Contact #1 : Kar Emergency Contact #1 Emergency Contact #1 Relationship : spouse Emergency Contact #2 : na Emergency Contact #2 Phone Number : na Emergency Contact #2 Relationship : na Primary Language : Bur[place]ian Communication Barrier : None Outside Machinist Apprentice Needed : No Lorenza Oliveira Rn - 08/31/2021 7:30 EST Sleep Apnea Risk Assmt Hx of Obstructive Sleep Apnea Diagnosis : No Snore Loudly : No Tired, Fatigued, or Sleepy During Day : No Observed Stopping Breathing During Sleep : No Have/Are Being Treated for Hypertension : No BMI Greater Than 35 kg/m2 : No Age over 50 Years Old : Yes Neck Circumference Greater Than 40 cm : No Gender Male : No STOP-BANG Sleep Apnea Risk Level Score : 1 Lorenza Oliveira Rn - 08/31/2021 7:30 EST Lorenzo Scale Lorenzo Sensory Perception : No impairment Lorenzo Moisture : Rarely moist Lorenzo Activity : Walks frequently Lorenzo Mobility : No limitation Lorenzo Nutrition : Adequate Lorenzo Friction and Shear : No apparent problem Lorenzo Score : 22 Lorenza Oliveira Rn - 08/31/2021 7:30 EST Fall Risk Scales ABCs Fall Injury Risk [...] Scale Risk Level : 0-24 Low Risk [place] Fall Interventions : Adequate lighting, Bed in low position, Call device within reach, Non-slip footwear, Personal items within reach, Room free of clutter/spills, Upper side-rails up, Wheels locked, Wires/Cords secured Lorenza Oliveira Rn - 08/31/2021 7:30 EST Valuables and Belongings Valuables and Belongings : Clothing, Personal devices Clothing : Common streetwear Clothing Disposition : Bedside Personal Device Disposition : Bedside Personal Devices : Dentures, upper, Glasses Lorenza Oliveira Rn - 08/31/2021 7:30 EST documented in this encounter Plan of Treatment Not on file documented as of this encounter Visit Diagnoses Not on filedocumented in this encounter Care Teams Wheel Borer Relationship Specialty Start Date End Date Ivory Sam APRN [address] [place] [address] PCP - General Nurse Practitioner 01/19/23 documented as of this encounter
--- OUTSIDE RECORDS SUMMARY | 2025-04-08 09:26 | XMS_ITS | Encounter Summary ---
Author Organization [employer] ([place], [place], [place], [place]) Address [address] [place] [address] Care Team Providers Care Basket Operator Name Role Phone Ivory Sam APRN Primary Care Provider [phone] Encounter Details Date Type Department Care Team (Late st Contact Info) Description 07/27/2021 Transcribed Document [facility] [place] [address] [place] [address] ProviderOctavio MD [address] [place] [address] Social History Tobacco Use Types Packs/Day Years Used Date Smoking Tobacco: Never Assessed Comments Unknown Sex and Gender Information Value Date Recorded Sex Assigned at Female 04/05/2022 12:50 PM CDT Legal Sex Female 12:50 PM CDT Gender Identity Female 04/05/2022 12:50 PM CDT Sexual Orientation Straight 09/12/2022 10 :24 AM NEPHROLOGIST documented as of this encounter Miscellaneous Notes * Cerner Conversion Note - Historical ProviderMD - 07/27/2021 8:30 AM CDT [facility] PreOp Summary Primary Physician: DEEP ARREOLA MD Finalized Date/Time: 07/27/21 07:55:10 Pt. Name: ROSALEE YOUNG/Sex: 1965 Female Med Rec #: [id number] Physician: DEEP ARREOLA MD Financial #: [id number] Pt. Type: E Room/Bed: [facility] [place]/ Admit/Disch: 07/27/21 07:07:00 - Institution: [facility] PreOp Case Times Entry 1 In Preop 07/27/21 07:21:00 Ready for Holding 07/27/21 07:53:00 Room Patient Ready for 07/27/21 07:53:00 Surgery Patient Out of Preop 07/27/21 07:53:00 Patient Out of n/a Holding Room Finalized By: Lorenza Oliveira, Rn Document Signatures Signed By: Lorenza Oliveira Rn 07/27/21 07:55 documented in this encounter Plan of Treatment Not on file documented as of this encounter Visit Diagnoses Not on filedocumented in this encounter Care Teams Basket Operator Relationship Specialty Start Date End Date Ivory Sam, ANTIQUE AUTOMOBILES REPAIRER [address] [place] [id number] PCP - General Nurse Practitioner 01/19/23 documented as of this encounter
--- OUTSIDE RECORDS SUMMARY | 2025-04-08 09:26 | XMS_ITS | Encounter Summary ---
Author Organization [employer] ([place], [place], [place], [place]) Address [address] [place] [address] Care Team Providers Care Seat Joiner Name Role Phone Ivory Sam APRN Primary Care Provider [phone] Encounter Details Date Type Department Care Team (Late st Contact Info) Description 07/27/2021 Transcribed Document [facility] [place] [facility] [place] [address] ProviderOctavio MD [address] [id number] Social History Tobacco Use Types Packs/Day Years Used Date Smoking Tobacco: Never Assessed Comments Unknown Sex and Gender Information Value Date Recorded Sex Assigned at Female 04/05/2022 12:50 PM CDT Legal Sex Female 12:50 PM CDT Gender Identity Female 04/05/2022 12:50 PM CDT Sexual Orientation Straight 09/12/2022 10 :24 AM ARMORER TECHNICIAN documented as of this encounter Miscellaneous Notes * Cerner Conversion Note - Octavio ProviderMD - 07/27/2021 8:28 AM CDT [facility] PACU Summary Primary Physician: DEEP ARREOLA MD Finalized Date/Time: 07/27/21 09:39:57 Pt. Name: ROSALEE YOUNG/Sex: 1965 Female Med Rec #: [id number] Physician: DEEP ARREOLA MD Financial #: [id number] Pt. Type: E Room/Bed: [facility] [place] Admit/Disch: 07/27/21 07:07:00 - Institution: [facility] PACU Case Times Entry 1 In PACU I 07/27/21 08:40:00 Ready for PACU 07/27/21 09:11:00 Discharge Discharge from PACU 07/27/21 09:14:00 I [facility] PACU Case Times Audit 07/27/21 09:12:54 Divemaster: [id number] Modifier: [id number] <+> 1 Ready for PACU Discharge <+> 1 Discharge from PACU I Finalized By: PARAMJIT MILLER, RN Document Signatures Signed By: PARAMJIT MILLER RN 07/27/21 09:12 PARAMJIT MILLER RN 07/27/21 09:39 Unfinalized History Date/Time Username Reason for Unfinalizing Freetext Reason for Unfinalizing 07/27/21 09:39 [id number] Modify Pick List Electronically signed by [facility] Conversion Service Delivery Supervisor Cerner at 01/25/2023 12:31 PM CDT documented in this encounter Plan of Treatment Not on file documented as of this encounter Visit Diagnoses Not on filedocumented in this encounter Care Teams Seat Joiner Relationship Specialty Start Date End Date Ivory Sam, 3D ANIMATOR [address] [place] [phone] PCP - General Nurse Practitioner 01/19/23 documented as of this encounter
--- OUTSIDE RECORDS SUMMARY | 2025-04-08 09:26 | XMS_ITS | Encounter Summary ---
Author Organization [employer] ([place], [place], [place], [place]) Address [address] [place] [address] Care Team Providers Care Hyperbaric Welder Diver Name Role Phone Raheem Samy SEBASTIÁN Primary Care Provider [phone] Encounter Details Date Type Department Care Team (Late st Contact Info) Description 08/31/2021 Transcribed Document [facility] [place] [facility] [place] [address] ProviderOctavio MD [address] [place], [place] [address] Social History Tobacco Use Types Packs/Day Years Used Date Smoking Tobacco: Never Assessed Comments Unknown Sex and Gender Information Value Date Recorded Sex Assigned at Female 04/05/2022 12:50 PM CDT Legal Sex Female 12:50 PM CDT Gender Identity Female 04/05/2022 12:50 PM CDT Sexual Orientation Straight 09/12/2022 10 :24 AM MACHINIST 2ND SHIFT documented as of this encounter Miscellaneous Notes * Cerner Conversion Note - Octavio ProviderMD - 08/31/2021 8:30 AM MACHINIST 2ND SHIFT Patient Education Materials Follows: ESOPHAGOGASTRODUODENOSCOPY Care After Read the instructions outlined below and refer to this sheet over the next few days. These discharge instructions provide you with general information on caring for yourself after you leave the hospital. Your doctor may also give you specific instructions. While your treatment has been planned according to the most current medical practices available, unavoidable complications occasionally occur. If you have any problems or questions after discharge, call your doctor. HOME CARE INSTRUCTIONS: ACTIVITY: ?? You may resume your regular activity tomorrow, but move at a slower pace for the next 24 hours. ?? Take frequent rest periods for the next 24 hours. ?? Walking will help get rid of the air and reduce the bloated feeling in your belly (abdomen). ?? No driving for 24 hours because of the medication (sedation) used during the test. ?? You may shower. ?? Do not sign any important legal documents or operate any machinery for 24 hours (because of the sedation used during the test). NUTRITION: ?? Drink plenty of fluids. ?? You may resume your normal diet or as instructed by your doctor ?? Begin with a light meal and progress to your normal diet. Heavy or fried foods are harder to digest and may make you feel sick to your stomach (nauseated). ?? Avoid alcoholic beverages for 24 hours or as instructed. MEDICATIONS: ?? You may resume your normal medications unless your doctor tells you otherwise. WHAT TO EXPECT TODAY: ?? Some feelings of bloating in the abdomen. ?? Excessive burping today and passage of more gas than usual. ?? A sore throat can be normal. Use throat lozenges or gargle with warm salt water and drink plenty of fluids. FINDING OUT THE RESULTS OF YOUR TEST: ?? Not all test results are available during your visit. If you had biopsies or other tests done during your procedure, you can make an appointment with your doctor to get the results. Sometimes you may be instructed to call the doctor's office for your results. It is important for you to follow up on all of your test results. SEEK IMMEDIATE MEDICAL CARE IF: ?? You cannot eat or drink. ?? You have worsening throat or chest pain. ?? You have dizziness, lightheadedness, or you faint. ?? You have severe nausea or vomiting. ?? You have a fever greater than 101. ?? You have chills. ?? You have severe abdominal pain or discomfort that gets worse throughout the day. ?? You have black, tarry, or bloody stools. Gastroenterology Gastritis, Adult Gastritis is swelling (inflammation) of the stomach. Gastritis can develop quickly (acute). It can also develop slowly over time (chronic). It is important to get help for this condition. If you do not get help, your stomach can bleed, and you can get sores (ulcers) in your stomach. What are the causes? This condition may be caused by: ??? Germs that get to your stomach. ??? Drinking too much alcohol. ??? Medicines you are taking. ??? Too much acid in the stomach. ??? A disease of the intestines or stomach. ??? Stress. ??? An allergic reaction. ??? Crohn's disease. ??? Some cancer treatments (radiation). Sometimes the cause of this condition is not known. What are the signs or symptoms? Symptoms of this condition include: ??? Pain in your stomach. ??? A burning feeling in your stomach. ??? Feeling sick to your stomach (nauseous). ??? Throwing up (vomiting). ??? Feeling too full after you eat. ??? Weight loss. ??? Bad breath. ??? Throwing up blood. ??? Blood in your poop (stool). How is this diagnosed? This condition may be diagnosed with: ??? Your medical history and symptoms. ??? A physical exam. ??? Tests. These can include: ? Blood tests. ? Stool tests. ? A procedure to look inside your stomach (upper endoscopy). ? A test in which a sample of tissue is taken for testing (biopsy). How is this treated? Treatment for this condition depends on what caused it. You may be given: ??? Antibiotic medicine, if your condition was caused by germs. ??? H2 blockers and similar medicines, if your condition was caused by too much acid. Follow these instructions at home: Medicines ??? Take yrlf-iwq-eaqassq and prescription medicines only as told by your doctor. ??? If you were prescribed an antibiotic medicine, take it as told by your doctor. Do not stop taking it even if you start to feel better. Eating and drinking ??? Eat small meals often, instead of large meals. ??? Avoid foods and drinks that make your symptoms worse. ??? Drink enough fluid to keep your pee (urine) pale yellow. Alcohol use ??? Do not drink alcohol if: ? Your doctor tells you not to drink. ? You are , may be , or are planning to become . ??? If you drink alcohol: ? Limit your use to: ? 0?1 drink a day for women. ? 0?2 drinks a day for men. ? Be aware of how much alcohol is in your drink. In the [place] one drink equals one 12 oz bottle of beer (355 mL), one 5 oz glass of wine (148 mL), or one 1? oz glass of hard liquor (44 mL). General instructions ??? Talk with your doctor about ways to manage stress. You can exercise or do deep breathing, meditation, or yoga. ??? Do not smoke or use products that have nicotine or tobacco. If you need help quitting, ask your doctor. ??? Keep all follow-up visits as told by your doctor. This is important. Contact a doctor if: ??? Your symptoms get worse. ??? Your symptoms go away and then come back. Get help right away if: ??? You throw up blood or something that looks like coffee grounds. ??? You have black or dark red poop. ??? You throw up any time you try to drink fluids. ??? Your stomach pain gets worse. ??? You have a fever. ??? You do not feel better after one week. Summary ??? Gastritis is swelling (inflammation) of the stomach. ??? You must get help for this condition. If you do not get help, your stomach can bleed, and you can get sores (ulcers). ??? This condition is diagnosed with medical history, physical exam, or tests. ??? You can be treated with medicines for germs or medicines to block too much acid in your stomach. This information is not intended to replace advice given to you by your health care provider. Make sure you discuss any questions you have with your health care provider. Document Revised: 02/12/2019 Document Reviewed: 02/12/2019 [employer] Patient Education ? 2020 [employer]. Esophageal Dilatation Esophageal dilatation, also called esophageal dilation, is a procedure to widen or open (dilate) a blocked or narrowed part of the esophagus. The esophagus is the part of the body that moves food and liquid from the mouth to the stomach. You may need this procedure if: ??? You have a buildup of scar tissue in your esophagus that makes it difficult, painful, or impossible to swallow. This can be caused by gastroesophageal reflux disease (GERD). ??? You have cancer of the esophagus. ??? There is a problem with how food moves through your esophagus. In some cases, you may need this procedure repeated at a later time to dilate the esophagus gradually. Tell a health care provider about: ??? Any allergies you have. ??? All medicines you are taking, including vitamins, herbs, eye drops, creams, and ylqn-jgo-ylccicz medicines. ??? Any problems you or family members have had with anesthetic medicines. ??? Any blood disorders you have. ??? Any surgeries you have had. ??? Any medical conditions you have. ??? Any antibiotic medicines you are required to take before dental procedures. ??? Whether you are or may be . What are the risks? Generally, this is a safe procedure. However, problems may occur, including: ??? Bleeding due to a tear in the lining of the esophagus. ??? A hole (perforation) in the esophagus. What happens before the procedure? Follow instructions from your health care provider about eating or drinking restrictions. ??? Ask your health care provider about changing or stopping your regular medicines. This is especially important if you are taking diabetes medicines or blood thinners. ??? Plan to have someone take you home from the hospital or clinic. ??? Plan to have a responsible adult care for you for at least 24 hours after you leave the hospital or clinic. This is important. What happens during the procedure? You may be given a medicine to help you relax (sedative). ??? A numbing medicine may be sprayed into the back of your throat, or you may gargle the medicine. ??? Your health care provider may perform the dilatation using various surgical instruments, such as: ? Simple dilators. This instrument is carefully placed in the esophagus to stretch it. ? Guided wire bougies. This involves using an endoscope to insert a wire into the esophagus. A dilator is passed over this wire to enlarge the esophagus. Then the wire is removed. ? Balloon dilators. An endoscope with a small balloon at the end is inserted into the esophagus. The balloon is inflated to stretch the esophagus and open it up. The procedure may vary among health care providers and hospitals. What happens after the procedure? Your blood pressure, heart rate, breathing rate, and blood oxygen level will be monitored until the medicines you were given have worn off. ??? Your throat may feel slightly sore and numb. This will improve slowly over time. ??? You will not be allowed to eat or drink until your throat is no longer numb. ??? When you are able to drink, urinate, and sit on the edge of the bed without nausea or dizziness, you may be able to return home. Follow these instructions at home: ??? Take pukb-red-slxgrtz and prescription medicines only as told by your health care provider. ??? Do not drive for 24 hours if you were given a sedative during your procedure. ??? You should have a responsible adult with you for 24 hours after the procedure. ??? Follow instructions from your health care provider about any eating or drinking restrictions. ??? Do not use any products that contain nicotine or tobacco, such as cigarettes and e-cigarettes. If you need help quitting, ask your health care provider. ??? Keep all follow-up visits as told by your health care provider. This is important. Get help right away if you: ??? Have a fever. ??? Have chest pain. ??? Have pain that is not relieved by medication. ??? Have trouble breathing. ??? Have trouble swallowing. ??? Vomit blood. Summary ??? Esophageal dilatation, also called esophageal dilation, is a procedure to widen or open (dilate) a blocked or narrowed part of the esophagus. ??? Plan to have someone take you home from the hospital or clinic. ??? For this procedure, a numbing medicine may be sprayed into the back of your throat, or you may gargle the medicine. ??? Do not drive for 24 hours if you were given a sedative during your procedure. This information is not intended to replace advice given to you by your health care provider. Make sure you discuss any questions you have with your health care provider. Document Revised: 07/22/2020 Document Reviewed: 07/31/2018 [employer] Patient Education ? 2020 [employer] Pharmacology Monitored Anesthesia Care Anesthesia refers to techniques, procedures, and medicines that help a person stay safe and comfortable during a medical or dental procedure. Monitored anesthesia care, or sedation, is one type of anesthesia. Your anesthesia specialist may recommend sedation if you will be having a procedure that does not require you to be unconscious. You may have this procedure for: ??? Cataract surgery. ??? A dental procedure. ??? A biopsy. ??? A colonoscopy. During the procedure, you may receive a medicine to help you relax (sedative). There are three levels of sedation: ??? Mild sedation. At this level, you may feel awake and relaxed. You will be able to follow directions. ??? Moderate sedation. At this level, you will be sleepy. You may not remember the procedure. ??? Deep sedation. At this level, you will be asleep. You will not remember the procedure. The more medicine you are given, the deeper your level of sedation will be. Depending on how you respond to the procedure, the anesthesia specialist may change your level of sedation or the type of anesthesia to fit your needs. An anesthesia specialist will monitor you closely during the procedure. Tell a health care provider about: ??? Any allergies you have. ??? All medicines you are taking, including vitamins, herbs, eye drops, creams, and hhpm-qdr-rueotag medicines. ??? Any problems you or family members have had with anesthetic medicines. ??? Any blood disorders you have. ??? Any surgeries you have had. ??? Any medical conditions you have, such as sleep apnea. ??? Whether you are or may be . ??? Whether you use cigarettes, alcohol, or drugs. ??? Any use of steroids, whether by mouth or as a cream. What are the risks? Generally, this is a safe procedure. However, problems may occur, including: ??? Getting too much medicine (oversedation). ??? Nausea. ??? Allergic reaction to medicines. ??? Trouble breathing. If this happens, a breathing tube may be used to help with breathing. It will be removed when you are awake and breathing on your own. ??? Heart trouble. ??? Lung trouble. ??? Confusion that gets better with time (emergence delirium). What happens before the procedure? Staying hydrated Follow instructions from your health care provider about hydration, which may include: ??? Up to 2 hours before the procedure ? you may continue to drink clear liquids, such as water, clear fruit juice, black coffee, and plain tea. Eating and drinking restrictions Follow instructions from your health care provider about eating and drinking, which may include: ??? 8 hours before the procedure ? stop eating heavy meals or foods, such as meat, fried foods, or fatty foods. ??? 6 hours before the procedure ? stop eating light meals or foods, such as toast or cereal. ??? 6 hours before the procedure ? stop drinking milk or drinks that contain milk. ??? 2 hours before the procedure ? stop drinking clear liquids. Medicines Ask your health care provider about: ??? Changing or stopping your regular medicines. This is especially important if you are taking diabetes medicines or blood thinners. ??? Taking medicines such as aspirin and ibuprofen. These medicines can thin your blood. Do not take these medicines unless your health care provider tells you to take them. ??? Taking elqb-zab-kkggjsg medicines, vitamins, herbs, and supplements. Tests and exams ??? You will have a physical exam. ??? You may have blood tests done to show: ? How well your kidneys and liver are working. ? How well your blood can clot. General instructions ??? Plan to have someone take you home from the hospital or clinic. ??? If you will be going home right after the procedure, plan to have someone with you for 24 hours. What happens during the procedure? Your blood pressure, heart rate, breathing, level of pain, and overall condition will be monitored. ??? An IV will be inserted into one of your veins. ??? You will be given medicines as needed to keep you comfortable during the procedure. This may mean changing the level of sedation. ? Depending on your age or the procedure, the sedative may be given: ? As a pill that you will swallow or as a pill that is inserted into the rectum. ? As an injection into the vein or muscle. ? As a spray through the nose. ??? The procedure will be performed. ??? Your breathing, heart rate, and blood pressure will be monitored during the procedure. ??? When the procedure is over, the medicine will be stopped. The procedure may vary among health care providers and hospitals. What happens after the procedure? Your blood pressure, heart rate, breathing rate, and blood oxygen level will be monitored until you leave the hospital or clinic. ??? You may feel sleepy, clumsy, or nauseous. ??? You may feel forgetful about what happened after the procedure. ??? You may vomit. ??? You may continue to get IV fluids. ??? Do not drive or operate machinery until your health care provider says that it is safe. Summary ??? Monitored anesthesia care is used to keep a patient comfortable during short procedures. ??? Tell your health care provider about any allergies or health conditions you have and about all the medicines you are taking. ??? Before the procedure, follow instructions about when to stop eating and drinking and about changing or stopping any medicines. ??? Your blood pressure, heart rate, breathing rate, and blood oxygen level will be monitored until you leave the hospital or clinic. ??? Plan to have someone take you home from the hospital or clinic. This information is not intended to replace advice given to you by your health care provider. Make sure you discuss any questions you have with your health care provider. Document Revised: 10/29/2020 Document Reviewed: 08/27/2020 [employer] Patient Education ? 2020 [employer]. documented in this encounter Plan of Treatment Not on file documented as of this encounter Visit Diagnoses Not on filedocumented in this encounter Care Teams Hyperbaric Welder Diver Relationship Specialty Start Date End Date Ivory Sam APRN [address] [place] [id number] PCP - General Nurse Practitioner 01/19/23 documented as of this encounter
--- OUTSIDE RECORDS SUMMARY | 2025-04-08 09:26 | XMS_ITS | Encounter Summary ---
Author Organization [employer] ([place], [place], [place], [place]) Address [address] [place] [address] Care Team Providers Care Escalator Constructor Name Role Phone CecyRaheemy SEBASTIÁN Primary Care Provider [phone] Encounter Details Date Type Department Care Team (Late st Contact Info) Description 07/27/2021 Transcribed Document [facility] Family [place] [address] ProviderOctavio MD [address] [place], [place] [id number] Social History Tobacco Use Types Packs/Day Years Used Date Smoking Tobacco: Never Assessed Comments Unknown Sex and Gender Information Value Date Recorded Sex Assigned at Female 04/05/2022 12:50 PM CDT Legal Sex Female 12:50 PM CDT Gender Identity Female 04/05/2022 12:50 PM CDT Sexual Orientation Straight 09/12/2022 10 :24 AM FACILITY ENVIRONMENTAL TECHNICIAN documented as of this encounter Miscellaneous Notes * Cerner Conversion Note - Historical ProviderMD - 07/27/2021 8:50 AM CDT [address] [address] ROSALEE YOUNG :1965 Visit Time:07/27/2021 What to do next Your Diagnosis Weight loss Hemorrhage of anus and rectum, Hemorrhage of anus and rectum Instructions From Your Care Team Diet after Discharge: Resume usual diet as tolerated, Do not drink any alcoholic beverages, Activity after Discharge: Rest and relax today, No strenuous activity Driving after Discharge: Do not drive for 24 hours May Return to Work/School: Tomorrow Showering/Bathing: May shower Notify Provider of: with any questions or concerns Follow-Up Appointments Follow Up with DEEP ARREOLA MD When Within As needed Where: [address] [place] [phone] Medications What How Much When Instructions Next Dose albuterol (Albuterol (Eqv-Proventil HFA)) Every 6 Hours aspirin (aspirin 81 mg oral capsule) Every 4 Hours clopidogrel (Plavix 75 mg oral tablet) Every Day multivitamin with minerals (Vitamin D with Minerals oral tablet) Every Day Take your medications faithfully. Do NOT skip medication. Do NOT stop taking medications without the direction of a physician. Carry a list of your medications with you at all times, and take this medication list with you to your first follow up visit. Report any side effects. Avoid herbal remedies unless discussed with your physician. As part of your treatment plan, your physician may have prescribed a limited course of a controlled substance. This medication may be given to help people with moderate or severe pain or for other medical conditions, but there are risks involved with treatment. Common side effects may include nausea, constipation, drowsiness, sweating, itching, dry mouth, and rash. More serious side effects may include cognitive and motor impairment, like problems with thinking, concentrating, alertness, and movement (e.g. slowed reflexes), and driving and operating heavy machinery can be dangerous. It is important for you to talk to your physician if you have these side effects or questions. These controlled substances can produce physical dependence and be habit-forming if taken for an extended period of time, which means that the body has gotten used to them and may experience withdrawal symptoms if they are abruptly stopped. Withdrawal symptoms can include runny nose, sweating, goose bumps, diarrhea, abdominal cramping, rapid heartbeat, difficulty sleeping, and nervousness. Please dispose of unused and medications per pharmacy guidance. Education Materials Hemorrhoids Hemorrhoids are swollen veins that may [...] 20 minutes to ease pain. Do this 3???4 times a day. You may do this [...] Leave the ice on for 20 minutes, 2???3 times a day. General instructions ??? Take vzvg-qwb-bjcgvan and prescription medicines only as told by [...] 20 minutes to ease pain. Do this 3???4 times a day. This information is not intended to replace advice given to you by your health care provider. Make sure you discuss any questions you have with your health care provider. Document Revised: 10/03/2019 Document Reviewed: 02/14/2019 [employer] Patient Education ?? 2020 [employer]. Colonoscopy, Adult, Care After This sheet gives [...] Get up to take short walks every 1???2 hours. This is important. Ask for help [...] source. ? Leave the heat on for 20???30 minutes. ? Remove the heat if your [...] soft and easy to digest. ??? Take jfsa-hbs-iwotfjr or prescription medicines only as told by your doctor. ??? Keep all follow-up visits as told by your doctor. This is important. Contact a doctor if: ??? You have blood in your poop 2???3 days after the procedure. Get help right [...] provider. Document Revised: 07/31/2020 Document Reviewed: 04/20/2020 [employer] Patient Education ?? 2020 [employer] Monitored Anesthesia Care, Care After This sheet [...] eating solid foods. General instructions ??? Take oxgx-muj-ruqkiry and prescription medicines only as told by [...] provider. Document Revised: 08/27/2020 Document Reviewed: 08/27/2020 [employer] Patient Education ?? 2020 [employer]. Emergency Awareness and Preventative Care STROKE is an EMERGENCY Every Minute Counts Act FAST and Check for these signs: FACE Does the face look uneven? ARM Does one arm drift down? SPEECH Does their speech sound strange? TIME Call at any sign of stroke Stroke Risk Factors Atrial Fibrillation (irregular heartbeat) Diabetes Family history of stroke Heart Disease Heavy alcohol use High Blood Pressure High Cholesterol Physical inactivity and obesity Smoking Cigarette Smoking The facts are clear, cigarette smoking will shorten your life. Smoking can cause many illnesses along the way. As a healthcare provider, we recommend that you stop smoking. Assistance with quitting is available by contacting 2-227-HSHPStayzillaNOW. This is a free resource providing counseling, support, and referral. Or you may contact your personal physician. National Suicide Prevention Lifeline: The National Suicide Prevention Lifeline is a national network of local crisis centers that provides free and confidential emotional support to people in suicidal crisis or emotional distress 24 hours a day, 7 days a week. Don't Wait! Stop a Heart Attack Before it Starts What is a heart attack? A heart attack is damage or to a part of the heart from severely decreased or lack of blood flow to the heart. Over time, arteries can become narrow from the buildup of fat and cholesterol, which is called plaque. The plaque can rupture causing a blood clot to form. When the blood clot forms, the artery can become severely narrowed or completely blocked, causing a heart attack. Heart attack is the leading cause of in the [place]. 85% of muscle damage occurs within the first 2 hours. Delay in the recognition of heart attack symptoms increases the chances of . Know the early symptoms of a heart attack: Nausea Feeling of fullness in chest Jaw Pain Pain that travels down one or both arms Fatigue/being tired Anxiety Back Pain Chest pressure, squeezing, or discomfort Shortness of breath Sweating, or a cold sweat Feeling of impending doom There are unusual signs of a heart attack, too! Women, the elderly, and diabetics may present with atypical symptoms: Fainting/dizziness Weakness Confusion Risk Factors for a Heart Attack Some heart disease risk factors, such as age and family history, cannot be changed. Others, like smoking and lack of exercise, can be changed. Smoking High Cholesterol High Blood Pressure Family History Obesity Age Gender (Males are at higher risk) Lack of Exercise Diabetes Diet Stress Excessive Alcohol Intake If you or someone you know is experiencing the signs and symptoms of a heart attack, DON???T DELAY. Call immediately and seek help. If someone collapses, perform CPR! Do not attempt to drive if you are having symptoms of heart attack. Hands-Only CPR Why Hands-Only CPR? Hands-Only CPR has been shown to be as effective as conventional CPR for cardiac arrests that occur outside of a hospital. Survival depends on immediately receiving CPR from someone nearby. How do you perform Hands-Only CPR? There are two easy steps: Call if you see a teen or adult collapse Push hard and fast in the center of the chest at a beat of 100 beats per minute. Save a life! 4 WAYS TO GET AHEAD OF SEPSIS SEPSIS is a MEDICAL EMERGENCY. Time matters! Infections put you and your family at risk for a life-threatening condition called sepsis. Sepsis is the body's extreme response to an infection. It is life-threatening, and without timely treatment, sepsis can rapidly lead to tissue damage, organ failure, and . Sepsis happens when an infection you already have-in your skin, lungs, urinary tract or somewhere else-triggers a chain reaction throughout your body. 1 PREVENT INFECTIONS Take good care of chronic conditions. Talk to your doctor about getting the recommended vaccines. 2 PRACTICE GOOD HYGIENE Wash your hands frequently. Keep cuts or open sores clean and covered until they are healed. 3 KNOW THE SYMPTOMS Confusion or disorientation Shortness of breath High heart rate Fever, shivering, or feeling very cold Extreme pain or discomfort Clammy or sweaty skin 4 ACT FAST Get medical care IMMEDIATELY if you suspect sepsis or if you have an infection that is not getting better or is getting worse. To learn more about sepsis and how to prevent infections, visit www.cdc.gov/sepsis. Test Results Laboratory or Other Results This Visit (last charted value for your 07/27/2021 visit) No Laboratory or Other Results This Visit Patient Name:ROSALEE YOUNG I have received this information and was given the opportunity to ask questions. Patient/Ground Crew Supervisor Name: Patient/Ground Crew Supervisor Signature: Relationship to Patient: Clinician/Hospital Ground Crew Supervisor Signature: Date: documented in this encounter Plan of Treatment Not on file documented as of this encounter Visit Diagnoses Not on filedocumented in this encounter Care Teams Escalator Constructor Relationship Specialty Start Date End Date Ivory Sam, SEBASTIÁN [address] [phone] PCP - General Nurse Practitioner 01/19/23 documented as of this encounter
--- OUTSIDE RECORDS SUMMARY | 2025-04-08 09:26 | XMS_ITS | Encounter Summary ---
Author Organization [employer] ([place], [place], [place], [place]) Address [address] [place] [address] Care Team Providers Care Painter Barrel Name Role Phone Cecy, Ivory SEBASTIÁN Primary Care Provider Encounter Details Date Type Department Care Team (Late st Contact Info) Description 07/27/2021 Transcribed Document [facility] Family Medicine [place] [address] ProviderOctavio MD [address] [place], [place] [address] Social History Tobacco Use Types Packs/Day Years Used Date Smoking Tobacco: Never Assessed Comments Unknown Sex and Gender Information Value Date Recorded Sex Assigned at Female 04/05/2022 12:50 PM CDT Legal Sex Female 12:50 PM CDT Gender Identity Female 04/05/2022 12:50 PM CDT Sexual Orientation Straight 09/12/2022 10 :24 AM 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 documented as of this encounter Miscellaneous Notes * Cerner Conversion Note - Historical ProviderMD - 07/27/2021 7:49 AM CDT Pre Procedure Adult Entered On: 07/27/2021 7:49 EDT Performed On: 07/27/2021 7:49 EDT by Lorenza Oliveira Rn Height and Weight, Clinical Dosing Height Source : Stated Height Entry Format : [place] Height, Feet : 5 ft(Converted to: 152 cm, 60 Inch) Height, Inches : 4 Inch(Converted to: 0 ft 4 Inch, 10.16 cm) Clinical Height : 162.56 cm Weight Source : Standing scale Weight Entry Format : [place] Clinical Dosing Weight : 49.15 kg Weight, Pounds : 108 lb Weight, Ounces : 2 oz Body Surface Area (BSA) : 1.51 m2 Body Mass Index : 18.6 kg/m2 (LOW) [place] Body Weight : 54 kg Lorenza Oliveira Rn - 07/27/2021 7:49 EDT Sleep Apnea Risk Assmt Hx of [...] : 2 Lorenza Oliveira Rn - 07/27/2021 7:49 EDT documented in this encounter Plan of Treatment Not on file documented as of this encounter Visit Diagnoses Not on filedocumented in this encounter Care Teams Painter Barrel Relationship Specialty Start Date End Date Ivory Sam, ARMATURE REWINDER [address] [place] [phone] PCP - General Nurse Practitioner 01/19/23 documented as of this encounter
--- OUTSIDE RECORDS SUMMARY | 2025-04-08 09:26 | XMS_ITS | Encounter Summary ---
Author Organization [employer] ([place], [place], [place], [place]) Address [address] [place] [address] Care Team Providers Care Service Unit Operator Oil Well Name Role Phone Ivory Sam APRN Primary Care Provider [phone] Encounter Details Date Type Department Care Team (Late st Contact Info) Description 11/02/2021 Transcribed Document [facility] Family Medicine [facility] [place] [address] ProviderOctavio MD [address] [place] [address] Social History Tobacco Use Types Packs/Day Years Used Date Smoking Tobacco: Never Assessed Comments Unknown Sex and Gender Information Value Date Recorded Sex Assigned at Female 04/05/2022 12:50 PM CDT Legal Sex Female 12:50 PM CDT Gender Identity Female 04/05/2022 12:50 PM CDT Sexual Orientation Straight 09/12/2022 10 :24 AM CLOTH BRUSHING 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 Name: ROSALEE YOUNG/Sex: 1965 Female Med Rec #: [id number] Physician: DEEP ARREOLA MD Financial #: [id number] Pt. Type: E Room/Bed: N/2 Admit/Disch: 11/02/21 06:52:00 - Institution: [facility] PreOp Case Times Entry 1 In Preop 11/02/21 07:30:00 Ready for Holding n/a Room Patient Ready for n/a Surgery Patient Out of Preop 11/02/21 08:07:00 Patient Out of n/a Holding Room Finalized By: Megan Valentine RN-PATIENT CARE BEDSIDE NON-EXEMPT Document Signatures Signed By: Megan Valentine RN-PATIENT CARE BEDSIDE NON-EXEMPT 11/02/21 08:08 documented in this encounter Plan of Treatment Not on file documented as of this encounter Visit Diagnoses Not on filedocumented in this encounter Care Teams Service Unit Operator Oil Well Relationship Specialty Start Date End Date Ivory Sam, SUBASSEMBLIES WIRER [address] [place] [phone] PCP - General Nurse Practitioner 01/19/23 documented as of this encounter
--- OUTSIDE RECORDS SUMMARY | 2025-04-08 09:26 | XMS_ITS | Encounter Summary ---
Author Organization [employer] ([place], [place], [place], [place]) Address [address] [place] [address] Care Team Providers Care Student Career Development Specialist Name Role Phone Ivory Sam APRN Primary Care Provider [phone] Encounter Details Date Type Department Care Team (Late st Contact Info) Description 08/31/2021 Transcribed Document [facility] [place] [facility] [place] [address] ProviderOctavio MD [address] [place] [address] Social History Tobacco Use Types Packs/Day Years Used Date Smoking Tobacco: Never Assessed Comments Unknown Sex and Gender Information Value Date Recorded Sex Assigned at Female 04/05/2022 12:50 PM CDT Legal Sex Female 12:50 PM CDT Gender Identity Female 04/05/2022 12:50 PM CDT Sexual Orientation Straight 09/12/2022 10 :24 AM SENIOR LABEL SPECIALIST documented as of this encounter Miscellaneous Notes * Cerner Conversion Note - Historical ProviderMD - 08/31/2021 8:30 AM SENIOR LABEL SPECIALIST [facility] PreOp Summary Primary Physician: DEEP ARREOLA MD Finalized Date/Time: 08/31/21 07:44:43 Pt. Name: ROSALEE YOUNG/Sex: 1965 Female Med Rec #: [id number] Physician: DEEP ARREOLA MD Financial #: [id number] Pt. Type: E Room/Bed: [facility]/ Admit/Disch: 08/31/21 06:36:00 - Institution: [facility] PreOp Case Times Entry 1 In Preop 08/31/21 07:24:00 Ready for Holding 08/31/21 07:44:00 Room Patient Ready for 08/31/21 07:44:00 Surgery Patient Out of Preop 08/31/21 07:44:00 Patient Out of n/a Holding Room [facility] PreOp Case Times Audit 08/31/21 07:44:41 Research Animal Attendant: [id number] Modifier: [id number] <+> 1 Patient Out of Preop <+> 1 Patient Ready for Surgery <+> 1 Ready for Holding Room Finalized By: Lorenza Oliveira, Rn Document Signatures Signed By: Lorenza Oliveira Rn 08/31/21 07:44 Electronically signed by Fay Boswell Conversion Manufacturing Engineering Intern Cerner at 01/25/2023 12:25 PM CDT documented in this encounter Plan of Treatment Not on file documented as of this encounter Visit Diagnoses Not on filedocumented in this encounter Care Teams Student Career Development Specialist Relationship Specialty Start Date End Date Ivory Sam, SEBASTIÁN [address] [place] [phone] PCP - General Nurse Practitioner 01/19/23 documented as of this encounter
--- OUTSIDE RECORDS SUMMARY | 2025-04-08 09:27 | XMS_ITS | Encounter Summary ---
Author Organization [employer] ([place], [place]) Address [address] [place] [address] Care Team Providers Care Equipment Maintenance Technician Name Role Phone Ivory Sam APRN Primary Care Provider Encounter Details Date Type Department Care Team (Late st Contact Info) Description 08/31/2021 Transcribed Document [facility] [place] Family Medicine [facility] [place] [address] ProviderOctavio MD [address] [place] [address] Social History Tobacco Use Types Packs/Day Years Used Date Smoking Tobacco: Never Assessed Comments Unknown Sex and Gender Information Value Date Recorded Sex Assigned at Female 04/05/2022 12:50 PM CDT Legal Sex Female 12:50 PM CDT Gender Identity Female 04/05/2022 12:50 PM CDT Sexual Orientation Straight 09/12/2022 10 :24 AM STAFFING COORDINATOR documented as of this encounter Miscellaneous Notes * Cerner Conversion Note - Historical ProviderMD - 08/31/2021 8:17 AM STAFFING COORDINATOR [facility] IntraOp Summary Primary Physician: DEEP ARREOLA MD Finalized Date/Time: 08/31/21 08:25:50 Pt. Name: ROSALEE YOUNG/Sex: 1965 Female Med Rec #: [id number] Physician: DEEP ARREOLA MD Financial #: [id number] Pt. Type: E Room[place] [facility] [place] Admit/Disch: 08/31/21 06:36:00 - Institution: [facility] [place] Endo - Case Attendance Entry 1 Entry 2 Entry 3 Case Attendee DEEP ARREOLA MD Tucker, Mira, Lutes, Crystal, RN-PATIENT CARE BEDSIDE RN-PATIENT CARE BEDSIDE NON-EXEMPT NON-EXEMPT Role Performed Surgeon/Proceduralist, Manager Plant, Second Manager Plant, First First Time In 08/31/21 08:13:00 08/31/21 08:13:00 08/31/21 08:13:00 Time Out 08/31/21 08:25:00 08/31/21 08:25:00 08/31/21 08:25:00 Procedure Esophagogastroduodenosco Esophagogastroduodenosco Esophagogastroduodenosco py, Gastric Biopsy, py, Gastric Biopsy, py, Gastric Biopsy, Esophageal Biopsy, Esophageal Biopsy, Esophageal Biopsy, Esophageal Dilatation Esophageal Dilatation Esophageal Dilatation Other Attendee Superficial Wound Closed By: Last Modified By: Megan Valentine, Meme, Crystal, Meme, Crystal, RN-PATIENT CARE BEDSIDE RN-PATIENT CARE BEDSIDE RN-PATIENT CARE BEDSIDE NON-EXEMPT 08/31/21 NON-EXEMPT 08/31/21 NON-EXEMPT 08/31/21 08:25:47 08:25:47 08:25:47 Entry 4 Entry 5 Entry 6 Case Attendee Cynthia Tinsley BOOKER, P CRAIG, MD-VERA BYRNE, ROOPA TENTMAKER Role Performed Scrub, First Anesthesiologist of CHIEF NUCLEAR MEDICINE TECHNOLOGIST/Nurse Plumbing Assembler Installer Record Time In 08/31/21 08:13:00 08/31/21 08:13:00 08/31/21 08:13:00 Time Out 08/31/21 08:25:00 08/31/21 08:25:00 08/31/21 08:25:00 Procedure Esophagogastroduodenosco Esophagogastroduodenosco Esophagogastroduodenosco py, Gastric Biopsy, py, Gastric Biopsy, py, Gastric Biopsy, Esophageal Biopsy, Esophageal Biopsy, Esophageal Biopsy, Esophageal Dilatation Esophageal Dilatation Esophageal Dilatation Other Attendee Superficial Wound Closed By: Last Modified By: Meme Crystal, Meme, Crystal, Meme, Crystal, RN-PATIENT CARE BEDSIDE RN-PATIENT CARE BEDSIDE RN-PATIENT CARE BEDSIDE NON-EXEMPT 08/31/21 NON-EXEMPT 08/31/21 NON-EXEMPT 08/31/21 08:25:47 08:25:47 08:25:47 E Endo - Case Attendance Audit 08/31/21 08:25:47 Rough Carpenter: [id number] Modifier: [id number] 1 <+> Time Out 1 <*> Procedure Esophagogastroduodenoscopy, Gastric Biopsy, Esophageal Biopsy, Esophageal Dilatation 2 <+> Time Out 2 <*> Procedure Esophagogastroduodenoscopy, Gastric Biopsy, Esophageal Biopsy, Esophageal Dilatation 3 <+> Time Out 3 <*> Procedure Esophagogastroduodenoscopy, Gastric Biopsy, Esophageal Biopsy, Esophageal Dilatation 4 <+> Time Out 4 <*> Procedure Esophagogastroduodenoscopy, Gastric Biopsy, Esophageal Biopsy, Esophageal Dilatation 5 <+> Time Out 5 <*> Procedure Esophagogastroduodenoscopy, Gastric Biopsy, Esophageal Biopsy, Esophageal Dilatation 6 <+> Time Out 6 <*> Procedure Esophagogastroduodenoscopy, Gastric Biopsy, Esophageal Biopsy, Esophageal Dilatation 08/31/21 08:21:50 Rough Carpenter: [id number] Modifier: [id number] 1 <*> Procedure Esophagogastroduodenoscopy, Gastric Biopsy 2 <*> Procedure Esophagogastroduodenoscopy, Gastric Biopsy 3 <*> Procedure Esophagogastroduodenoscopy, Gastric Biopsy 4 <*> Procedure Esophagogastroduodenoscopy, Gastric Biopsy 5 <*> Procedure Esophagogastroduodenoscopy, Gastric Biopsy 6 <*> Procedure Esophagogastroduodenoscopy, Gastric Biopsy 08/31/21 08:20:42 Rough Carpenter: [id number] Modifier: [id number] 1 <*> Procedure Esophagogastroduodenoscopy 2 <*> Procedure Esophagogastroduodenoscopy 3 <*> Procedure Esophagogastroduodenoscopy 4 <*> Procedure Esophagogastroduodenoscopy 5 <*> Procedure Esophagogastroduodenoscopy 6 <*> Procedure Esophagogastroduodenoscopy 08/31/21 08:13:53 Rough Carpenter: [id number] Modifier: [id number] <+> 1 Time In <+> 1 Procedure 2 <+> Time In 2 <*> Procedure Esophagogastroduodenoscopy 3 <+> Time In 3 <*> Procedure Esophagogastroduodenoscopy 4 <+> Time In 4 <*> Procedure Esophagogastroduodenoscopy 5 <+> Time In 5 <*> Procedure Esophagogastroduodenoscopy 6 <+> Time In 6 <*> Procedure Esophagogastroduodenoscopy [facility] - Case Times Entry 1 Patient In Room Time 08/31/21 08:13:00 Out Room Time 08/31/21 08:25:00 Anesthesia Start Time 08/31/21 08:13:00 Stop Time 08/31/21 08:23:00 Surgery / Procedure Times Start Time 08/31/21 08:17:00 Stop Time 08/31/21 08:23:00 Last Modified By: Megan Valentine RN-PATIENT CARE BEDSIDE NON-EXEMPT 08/31/21 08:24:43 [facility] - Case Times Audit 08/31/21 08:24:43 Rough Carpenter: [id number] Modifier: [id number] <+> 1 Out Room Time <+> 1 Stop Time <+> 1 Stop Time 08/31/21 08:18:07 Rough Carpenter: [id number] Modifier: [id number] <+> 1 Start Time [facility] - Cultures and Spec Summary Entry 1 Cultrures and Specimens Specimen Ordered: Yes Test(s) Routine/Path-Lab Requested/Final Disposition Last Modified By: Megan Valentine RN-PATIENT CARE BEDSIDE NON-EXEMPT 08/31/21 08:24:51 [facility] - Delays Entry 1 Delay Reason Other Duration 0 Minute(s) Comment NO DELAY Last Modified By: Megan Valentine RN-PATIENT CARE BEDSIDE NON-EXEMPT 08/31/21 08:13:57 [facility] - Departure from OR Entry 1 Integumentary Assessment Integumentary WDL Assessment WDL Transfer/Handoff Transfer to PACU Phase I Handoff Method Bedside/Face to face Post-op Transport Stretcher/Gurney Via Patient Transport Megan Valentine, Accompanied by RN-PATIENT CARE BEDSIDE NON-EXEMPT, VERA MIRANDA, NA Last Modified By: Megan Valentine RN-PATIENT CARE BEDSIDE NON-EXEMPT 08/31/21 08:15:03 [facility] - Endoscopy Details Entry 1 Abdomen Procedure Soft, Non-Tender Assessment Procedure Abdomen 08/31/21 08:13:00 Assessment D/T Dilators Balloon Dilator Size 20 Radio Frequency Ablation Abdominal Pressure Last Modified By: Megan Valentine RN-PATIENT CARE BEDSIDE NON-EXEMPT 08/31/21 08:23:57 [facility] - Endoscopy Details Audit 08/31/21 08:23:57 Rough Carpenter: [id number] Modifier: [id number] <+> 1 Dilators <+> 1 Dilator Size [facility] - Fire Risk Assessment Entry 1 Fire Info Surgical Site or 1- Yes Incision Above the Xyphoid Open O2 Source 1- Yes (Mask or Cannula) Available Ignition 1- Yes (ESU, Laser, Light Source) Fire Risk 3 Assessment Score Fire Score Fire Risk Yes Assessment Complete Fire Risk Megan Valentine, Assessment Verified RN-PATIENT CARE BEDSIDE By NON-EXEMPT Fire Risk 08/31/21 08:13:00 Assessment Verified Date/Time Fire Risk High Risk Protocol Yes Implemented Standard Fire Yes Safety Precautions Followed Last Modified By: Megan Valentine RN-PATIENT CARE BEDSIDE NON-EXEMPT 08/31/21 08:15:35 [facility] - General Case Stock Parts Inspector 1 Case Information OR Endo 01 [facility] Case Level 1 Room Verified Yes Wound Class No Incision Specialty Gastroenterology Anesthesia Type MAC ASA Class 4 Diagnosis Preop Diagnosis Dysphasia, dyspepsia Postop Diagnosis chronic gastritis, GERD with esophageal stricture Wound Class Definitions Last Modified By: Megan Valentine RN-PATIENT CARE BEDSIDE NON-EXEMPT 08/31/21 08:16:06 [facility] - General Case Data Audit 08/31/21 08:24:14 Rough Carpenter: [id number] Modifier: [id number] 1 <*> Postop Diagnosis chronic gastritis, esophageal stricture 08/31/21 08:22:27 Rough Carpenter: [id number] Modifier: [id number] <+> 1 Postop Diagnosis <+> 1 Room Verified [facility] - Intraoperative Assessment Entry 1 Handoff Method Other Valid History / Yes Physical in Chart Preoperative Yes Checklist Reviewed/Evaluated Allergies Reviewed Yes Patient is Latex No Sensitive Level of WDL Consciousness (WDL = Alert, Oriented to Person, Place, and Time) Present Upon IVs, ECG monitored Arrival to OR Last Modified By: Megan Valentine RN-PATIENT CARE BEDSIDE NON-EXEMPT 08/31/21 08:17:51 [facility] - Intraoperative Equipment Entry 1 Equipment Intraop Monitoring Antiembolic Devices Scopes Scope Serial 2430 Number/Identificatio n Number Photo/Video Documentation Last Modified By: Megan Valentine RN-PATIENT CARE BEDSIDE NON-EXEMPT 08/31/21 08:18:30 [facility] - Patient Positioning Entry 1 Procedure Esophagogastroduodenosco py, Gastric Biopsy, Esophageal Biopsy, Esophageal Dilatation Body Position Lateral, right side up Left Arm Position Resting at side Right Arm Position Resting at side Left Leg Position Other Right Leg Position Other Position Comments Right leg over left leg uncrossed Feet Uncrossed Yes Pressure Points Yes Checked Positioned By Megan Valentine RN-PATIENT CARE BEDSIDE NON-EXEMPT, VEAR MIRANDA NA Position Verified Positioning Yes Verified by Anesthesia Positioning Yes Verified by Surgeon Last Modified By: Megan Valentine RN-PATIENT CARE BEDSIDE NON-EXEMPT 08/31/21 08:18:36 [facility] - Patient Positioning Audit 08/31/21 08:21:52 Rough Carpenter: [id number] Modifier: [id number] 1 <*> Procedure Esophagogastroduodenoscopy, Gastric Biopsy 08/31/21 08:20:43 Rough Carpenter: [id number] Modifier: [id number] 1 <*> Procedure Esophagogastroduodenoscopy [facility] - Sign In Entry 1 Patient, Site, Yes Procedure Identified Surgical Consent Yes Confirmed Relevant Surgical Yes Documents Available Surgical Site N/A Marked by person performing procedure Allergies Yes Airway Blood Loss Risk No Blood Loss No Intervention Equipment Prepared and Ready Blood Identifiers Not applicable Verified Per Policy Hypothermia Risk No Warming Measures Yes Taken Last Modified By: Megan Valentine RN-PATIENT CARE BEDSIDE NON-EXEMPT 08/31/21 08:18:54 [facility] - Sign Out Entry 1 RN Confirmation Surgical Yes Procedure(s) Identified Instrument, Sponge N/A and Sharps Counts Correct/Documented Equipment Problems N/A Documented Specimen Labeled Yes Correctly Urinary Catheter N/A Documented in IView Wound Yes classification reviewed, verified and updated post case in both the General Case Data and Procedure segments Safety Checklist Yes Elements Complete? RN Sign Out Megan Valentine, Van RN-PATIENT CARE BEDSIDE NON-EXEMPT RN Sign Out 08/31/21 08:25:00 Signature Date/Time Plan of Care Outcome - [...] related to extraneous objects Last Modified By: Megan Valentine RN-PATIENT CARE BEDSIDE NON-EXEMPT 08/31/21 08:24:29 [facility] - Surgical Procedures Entry 1 Entry 2 Entry 3 Procedure Esophagogastroduodenosco Gastric Biopsy Esophageal Biopsy py Modifiers Additional Antrum biopsy Procedure Description Primary Procedure Yes No No Primary Surgeon DEEP ARREOLA MD YONG, JUNE, MD YONG, JUNE, MD Start 08/31/21 08:17:00 08/31/21 08:17:00 08/31/21 08:17:00 Stop 08/31/21 08:23:00 08/31/21 08:23:00 08/31/21 08:23:00 Physician States Cecum Reached Anesthesia Type MAC MAC MAC Specialty Gastroenterology Gastroenterology Gastroenterology Wound Class No Incision No Incision No Incision Last Modified By: Megan Valentine, Megan Valentine, Megan Valentine RN-PATIENT CARE BEDSIDE RN-PATIENT CARE BEDSIDE RN-PATIENT CARE BEDSIDE NON-EXEMPT 08/31/21 NON-EXEMPT 08/31/21 NON-EXEMPT 08/31/21 08:20:39 08:20:39 08:21:46 Entry 4 Procedure Esophageal Dilatation Modifiers Additional balloon 18-20 Procedure Description Primary Procedure No Primary Surgeon DEEP ARREOLA MD Start 08/31/21 08:17:00 Stop 08/31/21 08:23:00 Physician States Cecum Reached Anesthesia Type MAC Specialty Gastroenterology Wound Class No Incision Last Modified By: Megan Valentine RN-PATIENT CARE BEDSIDE NON-EXEMPT 08/31/21 08:21:46 [facility] - Surgical Procedures Audit 08/31/21 08:25:44 Rough Carpenter: [id number] Modifier: [id number] <+> 1 Stop <+> 2 Stop <+> 3 Stop <+> 4 Stop 08/31/21 08:21:46 Rough Carpenter: [id number] Modifier: [id number] <+> 3 Procedure <+> 3 Primary Procedure <+> 3 Primary Surgeon <+> 3 Specialty <+> 3 Start <+> 3 Wound Class <+> 3 Anesthesia Type <+> 4 Procedure <+> 4 Primary Procedure <+> 4 Primary Surgeon <+> 4 Specialty <+> 4 Start <+> 4 Wound Class <+> 4 Anesthesia Type <+> 4 Additional Procedure Description [facility] - Time Out Entry 1 Procedure to be Esophagogastroduodenosco Performed py Time Out Time Out Pause Time 08/31/21 08:15:00 All activity Yes suspended (unless life threatening emergency) Team Verbally Correct patient Confirms Information identity, Consent form is present and accurate, Agreement on the procedure to be done, Correct patient position Antibiotic N/A Prophylaxis Administered Or In Progress Within the Last 60 Minutes Beta Jennifer N/A Administered Venous N/A Thromboembolism Prophylaxis Required Anticipated Critical Events Surgeon None expected Last Modified By: Megan Valentine RN-PATIENT CARE BEDSIDE NON-EXEMPT 08/31/21 08:23:33 Case Comments <None> Finalized By: Megan Valentine RN-PATIENT CARE BEDSIDE NON-EXEMPT Document Signatures Signed By: Megan Valentine RN-PATIENT CARE BEDSIDE NON-EXEMPT 08/31/21 08:25 documented in this encounter Plan of Treatment Not on file documented as of this encounter Visit Diagnoses Not on filedocumented in this encounter Care Teams Equipment Maintenance Technician Relationship Specialty Start Date End Date Ivory Sam, DOMESTIC HOUSEKEEPER [address] [place] [phone] PCP - General Nurse Practitioner 01/19/23 documented as of this encounter
--- OUTSIDE RECORDS SUMMARY | 2025-04-08 09:27 | XMS_ITS | Encounter Summary ---
Author Organization [employer] ([place], [place], [place], [place]) Address [address] [place] [address] Care Team Providers Care Bell Hole Digger Name Role Phone Ivory Sam APRN Primary Care Provider [phone] Encounter Details Date Type Department Care Team (Late st Contact Info) Description 11/02/2021 Transcribed Document [facility] [place] [facility] [place] [address] ProviderOctavio MD [address] [place] [address] Social History Tobacco Use Types Packs/Day Years Used Date Smoking Tobacco: Never Assessed Comments Unknown Sex and Gender Information Value Date Recorded Sex Assigned at Female 04/05/2022 12:50 PM CDT Legal Sex Female 12:50 PM CDT Gender Identity Female 04/05/2022 12:50 PM CDT Sexual Orientation Straight 09/12/2022 10 :24 AM BANQUET CHEF documented as of this encounter Miscellaneous Notes * Cerner Conversion Note - Historical ProviderMD - 11/02/2021 8:52 AM BANQUET CHEF [facility] PACU Summary Primary Physician: DEEP ARREOLA MD Finalized Date/Time: 11/02/21 09:43:52 Pt. Name: ROSALEE YOUNG/Sex: 1965 Female Med Rec #: [id number] Physician: DEEP ARROELA MD Financial #: [id number] Pt. Type: E Room/Bed: N/2 Admit/Disch: 11/02/21 06:52:00 - Institution: [facility] PACU Case Times Entry 1 In PACU I 11/02/21 09:11:00 Ready for PACU 11/02/21 09:43:00 Discharge Discharge from PACU 11/02/21 09:43:00 I [facility] PACU Case Times Audit 11/02/21 09:43:51 Sleeve Baster: [id number] Modifier: [id number] <+> 1 Ready for PACU Discharge <+> 1 Discharge from PACU I Finalized By: Megan Valentine RN-PATIENT CARE BEDSIDE NON-EXEMPT Document Signatures Signed By: Megan Valentine RN-PATIENT CARE BEDSIDE NON-EXEMPT 11/02/21 09:43 documented in this encounter Plan of Treatment Not on file documented as of this encounter Visit Diagnoses Not on filedocumented in this encounter Care Teams Bell Hole Digger Relationship Specialty Start Date End Date Ivory Sam, DATABASE DESIGN ANALYST [address] [place] [phone] PCP - General Nurse Practitioner 01/19/23 documented as of this encounter
--- OUTSIDE RECORDS SUMMARY | 2025-04-08 09:27 | XMS_ITS | Encounter Summary ---
Author Organization [employer] ([place], [place], [place], [place]) Address [address] [place] [address] Care Team Providers Care Shift Production Associate Name Role Phone Cecy, Ivory SEBASTIÁN Primary Care Provider [phone] Encounter Details Date Type Department Care Team (Late st Contact Info) Description 12/06/2021 Transcribed Document [facility] [place] [facility] [place] [address] ProviderOctavio MD [address] [place], [place] [address] Social History Tobacco Use Types Packs/Day Years Used Date Smoking Tobacco: Never Assessed Comments Unknown Sex and Gender Information Value Date Recorded Sex Assigned at Female 04/05/2022 12:50 PM CDT Legal Sex Female 12:50 PM CDT Gender Identity Female 04/05/2022 12:50 PM CDT Sexual Orientation Straight 09/12/2022 10 :24 AM CHIEF TECHNOLOGIST documented as of this encounter Miscellaneous Notes * Cerner Conversion Note - Historical ProviderMD - 12/06/2021 8:53 AM CHIEF TECHNOLOGIST [address] [address] ROSALEE YOUNG :1965 Visit Time:12/06/2021 What to do next Your Diagnosis Obstruction of bile duct, Obstruction of bile duct Instructions From Your Care Team Diet after Discharge: Resume usual diet as tolerated, do not drink alcoholic beverages for 24 hours Activity after Discharge: As tolerated, rest and relax today Driving after Discharge: Do not drive for 24 hours May Return to Work/School: after 24 hours Notify Provider of: any questions or concerns Follow-Up Appointments Follow Up with DEEP ARREOLA MD When Comments Please refer to report for further instructions. Please call office with any questions or concerns. Where: [address] [place] [address]- [phone] Medications What How Much When Instructions Next Dose albuterol (Albuterol (Eqv-Proventil HFA)) 2 Puff(s) Inhalation Every 6 Hours aspirin (aspirin 81 mg oral capsule) Oral Every 4 Hours busPIRone (BuSpar) 5 Milligram(s) Oral multivitamin with minerals (Vitamin D with Minerals oral tablet) Oral Every Day Take your medications faithfully. Do [...] and medications per pharmacy guidance. Education Materials Monitored Anesthesia Care, Care After This sheet [...] balance. Follow these instructions at home: For the time period you were told by your health care provider: ??? Rest as needed. ??? Do not participate in activities where you could fall or become injured. ??? Do not drive or use machinery. ??? Do not drink alcohol. [...] before eating solid foods. General instructions ??? Have a responsible adult stay with you for the time you are told. It is important to have someone help care for you until you are awake and alert. ??? Take trom-gkt-titcwok and prescription medicines only as told by [...] a responsible adult stay with you for the time you are told. It is important to have someone help [...] with your health care provider. Document Revised: 06/10/2021 Document Reviewed: 08/27/2020 [employer] Patient Education ?? 2020 [email or web address]. ESOPHAGOGASTRODUODENOSCOPY Care After Read the instructions outlined [...] call your doctor. HOME CARE INSTRUCTIONS: ACTIVITY: ??? You may resume your regular activity tomorrow, but move at a slower pace for the next 24 hours. ??? Take frequent rest periods for the next 24 hours. ??? Walking will help get rid of the air and reduce the bloated feeling in your belly (abdomen). ??? No driving for 24 hours because of the medication (sedation) used during the test. ??? You may shower. ??? Do not sign any important legal documents or operate any machinery for 24 hours (because of the sedation used during the test). NUTRITION: ??? Drink plenty of fluids. ??? You may resume your normal diet or as instructed by your doctor ??? Begin with a light meal and progress to your normal diet. Heavy or fried foods are harder to digest and may make you feel sick to your stomach (nauseated). ??? Avoid alcoholic beverages for 24 hours or as instructed. MEDICATIONS: ??? You may resume your normal medications unless your doctor tells you otherwise. WHAT TO EXPECT TODAY: ??? Some feelings of bloating in the abdomen. ??? Excessive burping today and passage of more gas than usual. ??? A sore throat can be normal. Use throat lozenges or gargle with warm salt water and drink plenty of fluids. FINDING OUT THE RESULTS OF YOUR TEST: ??? Not all test results are available during your visit. If you had biopsies or other tests done during your procedure, you can make an appointment with your doctor to get the results. Sometimes you may be instructed to call the doctor???s office for your results. It is important for you to follow up on all of your test results. SEEK IMMEDIATE MEDICAL CARE IF: ??? You cannot eat or drink. ??? You have worsening throat or chest pain. ??? You have dizziness, lightheadedness, or you faint. ??? You have severe nausea or vomiting. ??? You have a fever greater than 101. ??? You have chills. ??? You have severe abdominal pain or discomfort that gets worse throughout the day. ??? You have black, tarry, or bloody stools. Emergency Awareness and Preventative Care STROKE is [...] Assistance with quitting is available by contacting 0-102-HQEY-NOW. This is a free resource providing counseling, [...] This Visit (last charted value for your 12/06/2021 visit) No Laboratory or Other Results This Visit Patient Name:ROSALEE YOUNGCARROL I have received this information and was given the opportunity to ask questions. Patient/Lead Systems Architect Name: Patient/Lead Systems Architect Signature: Relationship to Patient: Clinician/Hospital Lead Systems Architect Signature: Date: documented in this encounter Plan of Treatment Not on file documented as of this encounter Visit Diagnoses Not on filedocumented in this encounter Care Teams Shift Production Associate Relationship Specialty Start Date End Date Cecy Ivory, PHARMACOLOGIST [address] [place] [phone] PCP - General Nurse Practitioner 01/19/23 documented as of this encounter
--- OUTSIDE RECORDS SUMMARY | 2025-04-08 09:27 | XMS_ITS | Encounter Summary ---
Author Organization [employer] ([place], [place], [place], [place]) Address [address] [place] [address] Care Team Providers Care Shredding Floor Equipment Operator Name Role Phone Ivory Sam APRN Primary Care Provider [phone] Encounter Details Date Type Department Care Team (Late st Contact Info) Description 12/06/2021 Transcribed Document [facility] [place] [address] ProviderOctavio MD [address] [place] [address] Social History Tobacco Use Types Packs/Day Years Used Date Smoking Tobacco: Never Assessed Comments Unknown Sex and Gender Information Value Date Recorded Sex Assigned at Female 04/05/2022 12:50 PM CDT Legal Sex Female 12:50 PM CDT Gender Identity Female 04/05/2022 12:50 PM CDT Sexual Orientation Straight 09/12/2022 10 :24 AM CLEARING SUPERVISOR documented as of this encounter Miscellaneous Notes * Cerner Conversion Note - Octavio ProviderMD - 12/06/2021 8:42 AM CLEARING SUPERVISOR [facility] PACU Summary Primary Physician: DEEP ARREOLA MD Finalized Date/Time: 12/06/21 09:13:15 Pt. Name: ROSALEE YOUNG/Sex: 1965 Female Med Rec #: [id number] Physician: DEEP ARREOLA MD Financial #: [id number] Pt. Type: E Room/Bed: N/2 Admit/Disch: 12/06/21 06:59:00 - Institution: [facility] PACU Case Times Entry 1 In PACU I 12/06/21 08:53:00 Ready for PACU 12/06/21 09:09:00 Discharge Discharge from PACU 12/06/21 09:13:00 I [facility] PACU Case Times Audit 12/06/21 09:13:13 Drying Machine Operator: [id number] Modifier: [id number] <+> 1 Ready for PACU Discharge <+> 1 Discharge from PACU I Finalized By: Megan Valentine RN-PATIENT CARE BEDSIDE NON-EXEMPT Document Signatures Signed By: Megan Valentine RN-PATIENT CARE BEDSIDE NON-EXEMPT 12/06/21 09:13 documented in this encounter Plan of Treatment Not on file documented as of this encounter Visit Diagnoses Not on filedocumented in this encounter Care Teams Shredding Floor Equipment Operator Relationship Specialty Start Date End Date Ivory Sam, NEW CAR INSPECTOR [address] [place] [phone] PCP - General Nurse Practitioner 01/19/23 documented as of this encounter
--- OUTSIDE RECORDS SUMMARY | 2025-04-08 09:27 | XMS_ITS | Encounter Summary ---
Author Organization [employer] ([place], [place], [place], [place]) Address [address] [place] [address] Care Team Providers Care Wood Box Maker Name Role Phone Ivory Sam APRN Primary Care Provider [phone] Encounter Details Date Type Department Care Team (Late st Contact Info) Description 12/06/2021 Transcribed Document [facility] [place] [facility] [address] ProviderOctavio MD [address] [place] [address] Social History Tobacco Use Types Packs/Day Years Used Date Smoking Tobacco: Never Assessed Comments Unknown Sex and Gender Information Value Date Recorded Sex Assigned at Female 04/05/2022 12:50 PM CDT Legal Sex Female 12:50 PM CDT Gender Identity Female 04/05/2022 12:50 PM CDT Sexual Orientation Straight 09/12/2022 10 :24 AM REGIONAL ENVIRONMENTAL MANAGER documented as of this encounter Miscellaneous Notes * Cerner Conversion Note - Historical ProviderMD - 12/06/2021 8:42 AM REGIONAL ENVIRONMENTAL MANAGER [facility] IntraOp Summary Primary Physician: DEEP ARREOLA MD Finalized Date/Time: 12/06/21 14:58:40 Pt. Name: ROSALEE YOUNG/Sex: 1965 Female Med Rec #: [id number] Physician: DEEP ARREOLA MD Financial #: [id number] Pt. Type: E Room/Bed: N/2 Admit/Disch: 12/06/21 06:59:00 - 12/06/21 12:05:00 Institution: [facility] [facility]o - Case Attendance Entry 1 Entry 2 Entry 3 Case Attendee DEEP ARREOLA MD MYSORE, MD RUBEN ESTRADA KAREN KIM, NA Role Performed Surgeon/Proceduralist, Anesthesiologist of [employer]/Nurse Solar Tech First Record Time In 12/06/21 08:40:00 12/06/21 08:38:00 12/06/21 08:38:00 Time Out 12/06/21 08:51:00 12/06/21 08:51:00 12/06/21 08:51:00 Procedure EGD w Foreign Body EGD w Foreign Body EGD w Foreign Body Removal Removal Removal Other Attendee Superficial Wound Closed By: Last Modified By: Flores Prince Edmundson, Stephanie, Edmundson, Stephanie, JOSE 12/06/21 08:50:14 RN 12/06/21 08:50:14 RN 12/06/21 08:50:14 Entry 4 Entry 5 Case Attendee Flores Prince, Paty Escobar, RIGHT OF WAY MAINTENANCE SUPERVISOR Role Performed Marketing Automation Manager, First Scrub, First Time In 12/06/21 08:38:00 12/06/21 08:38:00 Time Out 12/06/21 08:51:00 12/06/21 08:51:00 Procedure EGD w Foreign Body EGD w Foreign Body Removal Removal Other Attendee Superficial Wound Closed By: Last Modified By: Flores Prince Edmundson, Stephanie, JOSE 12/06/21 08:50:14 RN 12/06/21 08:50:14 [facility] Endo - Case Attendance Audit 12/06/21 08:50:14 Pipefitter Welder: [id number] Modifier: [id number] 1 <+> Time Out 1 <*> Procedure EGD w Foreign Body Removal 2 <+> Time Out 2 <*> Procedure EGD w Foreign Body Removal 3 <+> Time Out 3 <*> Procedure EGD w Foreign Body Removal 4 <+> Time Out 4 <*> Procedure EGD w Foreign Body Removal 5 <+> Time Out 5 <*> Procedure EGD w Foreign Body Removal 12/06/21 08:44:27 Pipefitter Welder: [id number] Modifier: [id number] <+> 1 Procedure <+> 2 Procedure <+> 3 Procedure <+> 4 Procedure <+> 5 Procedure 12/06/21 08:44:20 Pipefitter Welder: [id number] Modifier: [id number] 1 <-> Procedure Esophagogastroduodenoscopy 2 <-> Procedure Esophagogastroduodenoscopy 3 <-> Procedure Esophagogastroduodenoscopy 4 <-> Procedure Esophagogastroduodenoscopy 5 <-> Procedure Esophagogastroduodenoscopy 12/06/21 08:41:33 Pipefitter Welder: [id number] Modifier: [id number] 1 <*> Time In 12/06/21 08:38:00 1 <*> Procedure Esophagogastroduodenoscopy [facility] - Case Times Entry 1 Patient In Room Time 12/06/21 08:38:00 Out Room Time 12/06/21 08:51:00 Anesthesia Start Time 12/06/21 08:41:00 Stop Time 12/06/21 08:49:00 Anesthesia Ready 12/06/21 08:38:00 Surgery / Procedure Times Start Time 12/06/21 08:42:00 Stop Time 12/06/21 08:49:00 Last Modified By: Flores Prince RN 12/06/21 08:49:52 [facility] - Case Times Audit 12/06/21 08:49:52 Pipefitter Welder: [id number] Modifier: [id number] <+> 1 Out Room Time <+> 1 Stop Time <+> 1 Stop Time 12/06/21 08:43:22 Pipefitter Welder: [id number] Modifier: [id number] <+> 1 Start Time 12/06/21 08:41:26 Pipefitter Welder: [id number] Modifier: [id number] <+> 1 Start Time [facility] - Delays Entry 1 Delay Reason Equipment failure Duration 8 Minute(s) Last Modified By: Flores Prince RN 12/06/21 08:39:55 [facility] - Departure from OR Entry 1 Integumentary Assessment Integumentary WDL Assessment WDL Transfer/Handoff Transfer to PACU Phase I Handoff Method Bedside/Face to face Post-op Transport Stretcher/Gurney Via Patient Transport Flores Prince, Accompanied by RNRUBEN KAREN KIM, NA Last Modified By: Flores Prince RN 12/06/21 08:40:54 [facility]o - Endoscopy Details Entry 1 Abdomen Procedure Soft, Non-Tender Assessment Procedure Abdomen 12/06/21 08:38:00 Assessment D/T Radio Frequency Ablation Abdominal Pressure Last Modified By: Flores Prince RN 12/06/21 08:41:06 [facility] [place] Endo - Fire Risk Assessment Entry 1 Fire Info Surgical Site or 1- Yes Incision Above the Xyphoid Open O2 Source 1- Yes (Mask or Cannula) Available Ignition 1- Yes (ESU, Laser, Light Source) Fire Risk 3 Assessment Score Fire Score Fire Risk Yes Assessment Complete Fire Risk Flores Prince RN Assessment Verified By Fire Risk 12/06/21 08:38:00 Assessment Verified Date/Time Fire Risk High Risk Protocol Yes Implemented Standard Fire Yes Safety Precautions Followed Last Modified By: Flores Prince RN 12/06/21 08:43:13 [facility] Endo - General Case Inspector Firearms 1 Case Information OR Endo 02 [facility] [place] Case Level 1 Room Verified Yes Wound Class 2 - Clean-Contaminated Specialty Gastroenterology Anesthesia Type MAC ASA Class 3 Diagnosis Preop Diagnosis Stent removal Postop Same As Preop Yes Postop Diagnosis Stent removal Wound Class Definitions Last Modified By: Flores Prince RN 12/06/21 08:43:33 [facility] [place] Endo - General Case Data Audit 12/06/21 08:43:33 Pipefitter Welder: [id number] Modifier: [id number] <+> 1 Postop Same As Preop <+> 1 Postop Diagnosis [facility] [place] [place] Endo - Intraoperative Assessment Entry 1 Handoff Method Bedside/Face to face Valid History / Yes Physical in Chart Preoperative Yes Checklist Reviewed/Evaluated Patient is Latex No Sensitive Isolation Not applicable Precautions Noted Present Upon IVs, ECG monitored Arrival to OR Last Modified By: Flores Prince RN 12/06/21 08:42:20 [facility] [place] [place] Endo - Intraoperative Equipment Entry 1 Entry 2 Type Scope Scope Equipment Equipment ID Number Setting Intraop Monitoring Electrocardiogram (ECG) Electrode Placement Blood Pressure Source Blood Pressure Location Pulse Oximeter Probe Site Antiembolic Devices Antiembolic Devices Antiembolic Device Location Antiembolic Device ID Number Antiembolic Device Setting Scopes Flexible Endoscopes Gastroscope ERCP Scope Used Scope Serial [id number] Number/Identificatio n Number Photo/Video Documentation Photo Video Intraop Equipment Comment Last Modified By: Floers Prince Edmundson, Stephanie, RN 12/06/21 08:43:05 RN 12/06/21 08:49:11 [facility] [place] [place] Endo - Intraoperative Equipment Audit 12/06/21 08:49:11 Pipefitter Welder: [id number] Modifier: [id number] <+> 2 Type 12/06/21 08:48:53 Pipefitter Welder: [id number] Modifier: [id number] <+> 2 Flexible Endoscopes Used <+> 2 Scope Serial Number/Identification Number [facility] [place] [place] Endo - Patient Positioning Entry 1 Procedure EGD w Foreign Body Removal Body Position Lateral, right side up Left Arm Position Resting at side Right Arm Position Resting at side Left Leg Position Other Right Leg Position Other Position Comments Right leg over left leg uncrossed Feet Uncrossed Yes Pressure Points Yes Checked Positioned By Flores Prince RN, VERA MIRANDA NA Position Verified Positioning Yes Verified by Anesthesia Positioning Yes Verified by Surgeon Last Modified By: Flores Prince RN 12/06/21 08:44:28 [facility] Endo - Patient Positioning Audit 12/06/21 08:44:28 Pipefitter Welder: [id number] Modifier: [id number] <+> 1 Procedure 12/06/21 08:44:20 Pipefitter Welder: [id number] Modifier: [id number] 1 <-> Procedure Esophagogastroduodenoscopy [facility] [place] Endo - Sign In Entry 1 Patient, Site, Yes Procedure Identified Surgical Consent Yes Confirmed Relevant Surgical Yes Documents Available Surgical Site N/A Marked by person performing procedure Airway Blood Loss Risk No Blood Loss No Intervention Equipment Prepared and Ready Blood Identifiers Not applicable Verified Per Policy Hypothermia Risk No Warming Measures Yes Taken Last Modified By: Flores Prince RN 12/06/21 08:39:58 [facility] Endo - Sign Out Entry 1 RN [...] Flores Prince RN Signature RN Sign Out 12/06/21 08:51:00 Signature Date/Time Plan of Care Outcome - [...] objects Last Modified By: Flores Prince RN 12/06/21 08:50:07 [facility] Endo - Surgical Procedures Entry 1 Procedure EGD w Foreign Body Removal Additional Stent removed Procedure Description Primary Procedure Yes Primary Surgeon DEEP ARREOLA MD Start 12/06/21 08:42:00 Stop 12/06/21 08:49:00 Anesthesia Type MAC Specialty Gastroenterology Wound Class 2 - Clean-Contaminated Last Modified By: Flores Prince RN 12/06/21 14:58:00 General Comments: Unable to visualize stent with EGD scope; ERCP scope used. [facility] Endo - Surgical Procedures Audit 12/06/21 14:58:00 Pipefitter Welder: [id number] Modifier: [id number] 1 <*> Procedure EGD w Foreign Body Removal 1 <*> Procedure EGD w Foreign Body Removal 1 <*> Procedure EGD w Foreign Body Removal 12/06/21 08:50:11 Pipefitter Welder: [id number] Modifier: [id number] 1 <*> Stop 1 <*> Stop 12/06/21 08:44:24 Pipefitter Welder: [id number] Modifier: [id number] 1 <*> Procedure Esophagogastroduodenoscopy 1 <*> Specialty 1 <*> Specialty 1 <*> Start 1 <*> Start 1 <*> Wound Class 1 <*> Wound Class 1 <*> Additional Procedure Description 1 <*> Additional Procedure Description [facility] Endo - Time Out Entry 1 Procedure to be EGD w Foreign Body Performed Removal Time Out Time Out Pause Time 12/06/21 08:41:00 All activity Yes suspended (unless life threatening [...] expected Last Modified By: Flores Prince RN 12/06/21 08:44:28 [facility] - Time Out Audit 12/06/21 08:44:28 Pipefitter Welder: [id number] Modifier: [id number] <+> 1 Procedure to be Performed 12/06/21 08:44:21 Pipefitter Welder: [id number] Modifier: [id number] 1 <-> Procedure to be Performed Esophagogastroduodenoscopy Case Comments <None> Finalized By: Flores Prince RN Document Signatures Signed By: Flores Prince RN 12/06/21 14:58 documented in this encounter Plan of Treatment Not on file documented as of this encounter Visit Diagnoses Not on filedocumented in this encounter Care Teams Wood Box Maker Relationship Specialty Start Date End Date Ivory Sam, RECORDS TECHNICIAN [address] [place] [address] PCP - General Nurse Practitioner 01/19/23 documented as of this encounter
--- OUTSIDE RECORDS SUMMARY | 2025-04-08 09:27 | XMS_ITS | Encounter Summary ---
Author Organization [employer] ([place], [place], [place], [place]) Address [address] [place] [address] Care Team Providers Care Body Team Member Name Role Phone Cecy Ivory SEBASTIÁN Primary Care Provider [phone] Encounter Details Date Type Department Care Team (Late st Contact Info) Description 12/06/2021 Transcribed Document [facility] [place] Family [place] [facility] [address] ProviderOctavio MD [address] [place], [place] [id number] Social History Tobacco Use Types Packs/Day Years Used Date Smoking Tobacco: Never Assessed Comments Unknown Sex and Gender Information Value Date Recorded Sex Assigned at Female 04/05/2022 12:50 PM CDT Legal Sex Female 12:50 PM CDT Gender Identity Female 04/05/2022 12:50 PM CDT Sexual Orientation Straight 09/12/2022 10 :24 AM PHOTO TECH documented as of this encounter Miscellaneous Notes * Cerner Conversion Note - Historical ProviderMD - 12/06/2021 7:19 AM PHOTO TECH Pre Procedure Adult Entered On: 12/06/2021 7:23 EST Performed On: 12/06/2021 7:19 EST by Lorenza Oliveira Rn Height and Weight, Clinical Dosing Height Source : Stated Height Entry Format : Hatch Height, Feet : 5 ft(Converted to: 152 cm, 60 Inch) Height, Inches : 4 Inch(Converted to: 0 ft 4 Inch, 10.16 cm) Clinical Height : 162.56 cm Weight Source : Standing scale Weight Entry Format : Hatch Clinical Dosing Weight : 48.18 kg Weight, Pounds : 106 lb Body Surface Area (BSA) : 1.49 m2 Body Mass Index : 18.2 kg/m2 (LOW) [place] Body Weight : 54 kg Lorenza Oliveira Rn - 12/06/2021 7:19 EST Health Histories Smoking Status : Former smoker, quit more than 30 days ago Smokeless Tobacco Status : Never Lorenza Oliveira Rn - 12/06/2021 7:19 EST Social History (As Of: 12/06/2021 07:23:46 EST) Tobacco: Former smoker, quit more than [...] Vaccine? : No Lorenza Oliveira Rn - 12/06/2021 7:19 EST Infectious Disease Risk Screening Grid Cough [...] day) : NO Lorenza Oliveira Rn - 12/06/2021 7:19 EST Physical contact outside [place] in the last 30 days : No Hospitalized in Foreign Country : No Infectious Disease History : Chicken pox/Shingles INF Disease TB Screening Calc : 0 INF Disease Recent Travel Calc : 0 Lorenza Oliveira Rn - 12/06/2021 7:19 EST COVID19 PreProcedure Screening Is this an Emergent or Add on Procedure? : No Date PreProcedure COVID-19 test known? : Yes Date of PreProcedure COVID-19 : 12/02/2021 EST Has patient been isolated since the test : No Exposed to COVID19 symptoms since test? : No Lorenza Oliveira Rn - 12/06/2021 7:19 EST Anesthesia/Transfusion History Family History of Anesthesia Reaction : No prior transfusion(s) Transfusion History : Prior anesthesia reaction Type of Anesthesia Reaction : Excessive nausea/vomiting Family History of Anesthesia Reaction : None Lorenza Oliveira Rn - 12/06/2021 7:19 EST Functional Assessment Living Situation : Home Current Home Treatments : None Lorenza Oliveira Rn - 12/06/2021 7:19 EST [place] Suicide Severity Rating Scale (C-SSRS) CSSRS Past Month Wish to be : No CSSRS Past Month Suicidal Thoughts : No CSSRS Lifetime Suicide Behavior : No Suicide Severity Rating Score : 0 Suicide Severity Rating : No Additional Care Required at this time Lorenza Oliveira Rn - 12/06/2021 7:19 EST Psychosocial History Currently in Unsafe Situation : No Lorenza Oliveira Rn - 12/06/2021 7:19 EST Advance Directive Patient has Advance Directive *Q : No, patient refuses Advance Directive information Lorenza Oliveira Rn - 12/06/2021 7:19 EST General Info Want Family/Rep/Phys Notified of Admit : Yes Name/Contact Info Fam/Rep Notified Adm : na Name/Contact Info Physician Notified Adm : Johanna England Emergency Contact #1 : Gene Emergency Contact #1 Emergency Contact #1 Relationship : spouse Emergency Contact #2 : na Emergency Contact #2 Phone Number : na Emergency Contact #2 Relationship : na Primary Language : Kyrgyz Communication Barrier : None Design Coordinator Needed : No Lorenza Oliveira Rn - 12/06/2021 7:19 EST Sleep Apnea Risk Assmt Hx of [...] Score : 1 Lorenza Oliveira Rn - 12/06/2021 7:19 EST Lorenzo Scale Lorenzo Sensory Perception : No impairment Lorenzo Moisture : Rarely moist Lorenzo Activity : Walks frequently Lorenzo Mobility : No limitation Lorenzo Nutrition : Adequate Lorenzo Friction and Shear : No apparent problem Lorenzo Score : 22 Lorenza Oliveira Rn - 12/06/2021 7:19 EST Fall Risk Scales ABCs Fall Injury [...] Scale Risk Level : 0-24 Low Risk Rifle Fall Interventions : Adequate lighting, Bed in low position, Call device within reach, Non-slip footwear, Personal items within reach, Upper side-rails up, Wheels locked, Wires/Cords secured Lorenza Oliveira Rn - 12/06/2021 7:19 EST Valuables and Belongings Valuables and Belongings : Clothing, Personal devices Clothing : Common streetwear Clothing Disposition : Bedside Personal Device Disposition : Bedside Personal Devices : Dentures, upper, Glasses Lorenza Oliveira Rn - 12/06/2021 7:19 EST documented in this encounter Plan of Treatment Not on file documented as of this encounter Visit Diagnoses Not on filedocumented in this encounter Care Teams Body Team Member Relationship Specialty Start Date End Date Ivory Sam APRN [address] [place] [address] PCP - General Nurse Practitioner 01/19/23 documented as of this encounter
--- OUTSIDE RECORDS SUMMARY | 2025-04-08 09:27 | XMS_ITS | Encounter Summary ---
Author Organization [employer] ([place], [place], [place], [place]) Address [address] [place] [address] Care Team Providers Care Threshing Machine Operator Name Role Phone Ivory Sam APRN Primary Care Provider [phone] Encounter Details Date Type Department Care Team (Late st Contact Info) Description 11/02/2021 Transcribed Document [facility] [place] [facility] [place] [address] ProviderOctavio MD [address] [place] [address] Social History Tobacco Use Types Packs/Day Years Used Date Smoking Tobacco: Never Assessed Comments Unknown Sex and Gender Information Value Date Recorded Sex Assigned at Female 04/05/2022 12:50 PM CDT Legal Sex Female 12:50 PM CDT Gender Identity Female 04/05/2022 12:50 PM CDT Sexual Orientation Straight 09/12/2022 10 :24 AM TRANSMITTER CHIEF documented as of this encounter Miscellaneous Notes * Cerner Conversion Note - Historical ProviderMD - 11/02/2021 8:52 AM TRANSMITTER CHIEF [facility] IntraOp Summary Primary Physician: DEEP ARREOLA MD Finalized Date/Time: 11/02/21 11:49:14 Pt. Name: FELICITA YOUNG/Sex: 1965 Female Med Rec #: [id number] Physician: DEEP ARREOLA MD Financial #: [id number] Pt. Type: E Room/Bed: N/2 Admit/Disch: 11/02/21 06:52:00 - 11/02/21 11:33:00 [place] [facility] [place] Case Attendance Entry 1 Entry 2 Entry 3 Case Attendee DEEP ARREOLA MD Schultz, Morgan, RONAN, JENIFFER, MD HOT MILL SUPERVISOR Role Performed Surgeon/Proceduralist, Batch Tank Controller Anesthesiologist of First Record Time In 11/02/21 08:42:00 11/02/21 08:49:00 11/02/21 08:42:00 Time Out 11/02/21 09:08:00 11/02/21 09:08:00 11/02/21 09:08:00 Procedure Endoretrogradecholangiop Endoretrogradecholangiop Endoretrogradecholangiop ancreatography, ancreatography, ancreatography, Sphincterotomy, Biliary Sphincterotomy, Biliary Sphincterotomy, Biliary Duct Stent Placement Duct Stent Placement Duct Stent Placement Other Attendee Superficial Wound Closed By: Last Modified By: Flores Prince Edmundson, Stephanie, Edmundson, Stephanie, JOSE 11/02/21 11:39:16 RN 11/02/21 11:39:16 RN 11/02/21 11:39:16 Entry 4 Entry 5 Entry 6 Case Attendee SAQIB GOODMAN, Flores Piedra, Cynthia Thurston, GLASSIE Role Performed GUNSMITH APPRENTICE/Nurse Coat Operator Block Machine Operator, First Scrub, First Time In 11/02/21 08:42:00 11/02/21 08:42:00 11/02/21 08:42:00 Time Out 11/02/21 09:08:00 11/02/21 09:08:00 11/02/21 09:08:00 Procedure Endoretrogradecholangiop Endoretrogradecholangiop Endoretrogradecholangiop ancreatography, ancreatography, ancreatography, Sphincterotomy, Biliary Sphincterotomy, Biliary Sphincterotomy, Biliary Duct Stent Placement Duct Stent Placement Duct Stent Placement Other Attendee Superficial Wound Closed By: Last Modified By: Flores Prince Edmundson, Stephanie, Edmundson, Stephanie, JOSE 11/02/21 11:39:16 RN 11/02/21 11:39:16 RN 11/02/21 11:39:16 Entry 7 Case Attendee OTHER, ATTENDEE #1 Role Performed Student Time In 11/02/21 08:41:00 Time Out 11/02/21 09:08:00 Procedure Endoretrogradecholangiop ancreatography, Sphincterotomy, Biliary Duct Stent Placement Other Attendee Janet Hurley Superficial Wound Closed By: Last Modified By: Flores Prince RN 11/02/21 11:39:16 [facility] - Case Attendance Audit 11/02/21 11:39:16 Manufacturing Teacher: [id number] Modifier: [id number] <*> Procedure Endoretrogradecholangiopancreatography, Sphincterotomy 2 <*> Procedure Endoretrogradecholangiopancreatography, Sphincterotomy 3 <*> Procedure Endoretrogradecholangiopancreatography, Sphincterotomy 4 <*> Procedure Endoretrogradecholangiopancreatography, Sphincterotomy 5 <*> Procedure Endoretrogradecholangiopancreatography, Sphincterotomy 6 <*> Procedure Endoretrogradecholangiopancreatography, Sphincterotomy 7 <*> Procedure Endoretrogradecholangiopancreatography, Sphincterotomy 11/02/21 09:09:07 Manufacturing Teacher: [id number] Modifier: [id number] 1 <+> Time Out 1 <*> Procedure Endoretrogradecholangiopancreatography, Sphincterotomy 2 <+> Time Out 2 <*> Procedure Endoretrogradecholangiopancreatography, Sphincterotomy 3 <+> Time Out 3 <*> Procedure Endoretrogradecholangiopancreatography, Sphincterotomy 4 <+> Time Out 4 <*> Procedure Endoretrogradecholangiopancreatography, Sphincterotomy 5 <+> Time Out 5 <*> Procedure Endoretrogradecholangiopancreatography, Sphincterotomy 6 <+> Time Out 6 <*> Procedure Endoretrogradecholangiopancreatography, Sphincterotomy 7 <+> Time Out 7 <*> Procedure Endoretrogradecholangiopancreatography, Sphincterotomy 11/02/21 09:01:15 Manufacturing Teacher: [id number] Modifier: [id number] 1 <*> Procedure Endoretrogradecholangiopancreatography 2 <*> Procedure Endoretrogradecholangiopancreatography 3 <*> Procedure Endoretrogradecholangiopancreatography 4 <*> Procedure Endoretrogradecholangiopancreatography 5 <*> Procedure Endoretrogradecholangiopancreatography 6 <*> Procedure Endoretrogradecholangiopancreatography 7 <+> Time In 7 <*> Procedure Endoretrogradecholangiopancreatography [facility] - Case Times Entry 1 Patient In Room Time 11/02/21 08:41:00 Out Room Time 11/02/21 09:08:00 Anesthesia Start Time 11/02/21 08:45:00 Stop Time 11/02/21 09:02:00 Anesthesia Ready 11/02/21 08:41:00 Surgery / Procedure Times Start Time 11/02/21 08:52:00 Stop Time 11/02/21 09:02:00 Last Modified By: Flores Prince RN 11/02/21 09:09:03 [facility] - Case Times Audit 11/02/21 09:09:03 Manufacturing Teacher: [id number] Modifier: [id number] <+> 1 Out Room Time 11/02/21 09:03:55 Manufacturing Teacher: [id number] Modifier: [id number] <+> 1 Stop Time <+> 1 Stop Time 11/02/21 08:55:15 Manufacturing Teacher: [id number] Modifier: [id number] <+> 1 Start Time [facility] - Cautery Entry 1 ESU Identification Cautery Type Heater Probe ID Number [id number] ID Type Hospital Number Cautery Settings ESU Grounding Pad Ground Pad Type Adult Grounding Pad Site Left Flank Grounding Pad Cynthia Tinsley, Applied By GLASSIE Grounding Pad Site Warm, dry and intact Skin Condition Before Cautery Grounding Pad Site Unchanged Skin Condition After Cautery Last Modified By: Flores Prince RN 11/02/21 11:49:13 [facility] - Cautery Audit 11/02/21 11:49:13 Manufacturing Teacher: [id number] Modifier: [id number] <+> 1 ID Number 11/02/21 11:48:22 Manufacturing Teacher: [id number] Modifier: [id number] 1 <*> Cautery Type Heater Probe 1 <*> Ground Pad Type Adult 1 <*> Grounding Pad Site Left Flank 1 <*> ID Type Hospital Number 1 <*> Grounding Pad Applied By Cynthia Tinsley, GLASSIE 1 <*> Grounding Pad Site Skin Condition Warm, dry and intact Before Cautery 1 <*> Grounding Pad Site Skin Condition Unchanged After Cautery Entry 2 was deleted. Higher numbered entries shifted one position to fill the gap. <-> 2 ID Type Hospital Number 11/02/21 11:48:04 Manufacturing Teacher: [id number] Modifier: [id number] <+> 2 ID Type [facility] - Delays Entry 1 Delay Reason No Delay Duration 0 Minute(s) Last Modified By: Flores Prince RN 11/02/21 08:55:26 [facility] - Departure from OR Entry 1 Integumentary Assessment Integumentary WDL Assessment WDL Transfer/Handoff Transfer to PACU Phase I Handoff Method Bedside/Face to face Post-op Transport Stretcher/Gurney Via Patient Transport Flores Prince, Accompanied by RNREX EMILY, CRNA Last Modified By: Flores Prince RN 11/02/21 08:55:32 [facility] - Endoscopy Details Entry 1 Abdomen Procedure Soft, Non-Tender Assessment Procedure Abdomen 11/02/21 08:42:00 Assessment D/T Radio Frequency Ablation Abdominal Pressure Last Modified By: Flores Prince RN 11/02/21 08:55:47 [facility] - Fire Risk Assessment Entry 1 Fire Info Surgical Site or 1- Yes Incision Above the Xyphoid Open O2 Source 1- Yes (Mask or Cannula) Available Ignition 1- Yes (ESU, Laser, Light Source) Fire Risk 3 Assessment Score Fire Score Fire Risk Yes Assessment Complete Fire Risk Flores Prince RN Assessment Verified By Fire Risk 11/02/21 08:42:00 Assessment Verified Date/Time Fire Risk High Risk Protocol Yes Implemented Standard Fire Yes Safety Precautions Followed Last Modified By: Flores Prince RN 11/02/21 08:56:27 [facility] - General Case Coordinator Of Library Services 1 Case Information OR Endo 06 [facility] Case Level 1 Room Verified Yes Wound Class 2 - Clean-Contaminated Specialty Gastroenterology Anesthesia Type General ASA Class 3 Diagnosis Preop Diagnosis Biliary obstruction Postop Diagnosis Biliary stricture d/t duodenal Wound Class Definitions Last Modified By: Flores Prince RN 11/02/21 09:02:36 [facility] - General Case Data Audit 11/02/21 09:02:36 Manufacturing Teacher: [id number] Modifier: [id number] <+> 1 Postop Diagnosis [facility] - Implant Log Entry 1 Type Implant (Synthetic) Implant Log Implant Type Other Implant PRM-STENT CODI [id number] Identification ADVANX RX SGL DUOD BND Description 4.2MM WKG CHNL [id number] Implant Quantity 1 Implant [id number] Identification Lot Number Implant [employer] Identification Varnish Inspector Name: Implant [id number] Identification Catalog Number Implant Has an Yes Expiration Date Implant Expiration 07/30/23 Date Tissue Implant Graft Prep Per N/A Varnish Inspector Instructions: Last Modified By: Flores Prince RN 11/02/21 11:45:55 [facility] - Intraoperative Assessment Entry 1 Handoff Method Bedside/Face to face Valid History / Yes Physical in Chart Preoperative Yes Checklist Reviewed/Evaluated Allergies Reviewed Yes Patient is Latex No Sensitive Isolation Not applicable Precautions Noted Level of WDL Consciousness (WDL = Alert, Oriented to Person, Place, and Time) Present Upon IVs, ECG monitored Arrival to OR Last Modified By: Flores Prince RN 11/02/21 08:57:04 [facility] - Intraoperative Equipment Entry 1 Type Scope Equipment Intraop Monitoring Electrocardiogram Three lead placement (ECG) Electrode Placement Blood Pressure Non-Invasive BP Device Source Antiembolic Devices Scopes Flexible Endoscopes ERCP Scope Used Scope Serial 0934 Number/Identificatio n Number Photo/Video Documentation Photo Yes Video No Last Modified By: Flores Prince RN 11/02/21 08:57:44 [facility] - Medication Admin Entry 1 Medication/Irrigant Isovue-300 50ml - [id number] Time Administered 11/02/21 08:59:00 Dose Dose 5 Unit of Measure ml Procedure Irrigation Last Modified By: Flores Prince RN 11/02/21 09:04:40 [facility] - Patient Positioning Entry 1 Procedure Endoretrogradecholangiop ancreatography, Sphincterotomy Body Position Supine Left Arm Position Resting at side Right Arm Position Resting at side Left Leg Position Uncrossed, parallel Right Leg Position Uncrossed, parallel Feet Uncrossed Yes Pressure Points Yes Checked Positioned By SAQIB GOODMAN, JOSE ALFREDO, Flores Prince RN, Cynthia Tinsley, GLASSIE Position Verified Positioning Yes Verified by Anesthesia Positioning Yes Verified by Surgeon Last Modified By: Flores Prinec RN 11/02/21 09:01:16 [facility] - Patient Positioning Audit 11/02/21 09:01:16 Manufacturing Teacher: [id number] Modifier: [id number] 1 <*> Procedure Endoretrogradecholangiopancreatography [facility] - Sign In Entry 1 Patient, Site, Yes Procedure Identified Surgical Consent Yes Confirmed Relevant Surgical Yes Documents Available Surgical Site N/A Marked by person performing procedure Airway Hypothermia Risk No Warming Measures Yes Taken Last Modified By: Flores Prince RN 11/02/21 08:55:27 [facility] - Sign Out Entry 1 RN Confirmation Instrument, Sponge N/A and Sharps Counts Correct/Documented Equipment Problems N/A Documented Specimen Labeled N/A Correctly Urinary Catheter N/A Documented in IView Wound Yes classification reviewed, verified and updated post case in both the General Case Data and Procedure segments Safety Checklist Yes Elements Complete? RN Sign Out Flores Prince RN Signature RN Sign Out 11/02/21 09:08:00 Signature Date/Time Plan of Care Outcome - [...] of Care Outcome - Xray/Images OUTCOME STATEMENT: Goal met Absence of observable signs or symptoms of radiation injury Plan of Care Outcome - Counts OUTCOME STATEMENT: N/A Absence of signs and symptoms of injury related to extraneous objects Last Modified By: Flores Prince RN 11/02/21 09:08:55 [facility] - Surgical Procedures Entry 1 Entry 2 Entry 3 Procedure Endoretrogradecholangiop Sphincterotomy Biliary Duct Stent ancreatography Placement Modifiers Additional Procedure Description Primary Procedure Yes No No Primary Surgeon DEEP ARREOLA MD YONG, JUNE, MD YONG, JUNE, MD Start 11/02/21 08:52:00 11/02/21 08:52:00 11/02/21 08:52:00 Stop 11/02/21 09:02:00 11/02/21 09:02:00 11/02/21 09:02:00 Physician States Cecum Reached Anesthesia Type General General General Specialty Gastroenterology Gastroenterology Gastroenterology Wound Class 2 - Clean-Contaminated 2 - Clean-Contaminated 2 - Clean-Contaminated Last Modified By: Flores Prince Edmundson, Stephanie, Edmundson, Stephanie, RN 11/02/21 09:06:50 RN 11/02/21 09:06:50 RN 11/02/21 11:39:12 [facility] - Surgical Procedures Audit 11/02/21 11:39:12 Manufacturing Teacher: [id number] Modifier: [id number] <+> 3 Procedure <+> 3 Primary Procedure <+> 3 Primary Surgeon <+> 3 Specialty <+> 3 Start <+> 3 Stop <+> 3 Wound Class <+> 3 Anesthesia Type 11/02/21 09:06:50 Manufacturing Teacher: [id number] Modifier: [id number] <+> 1 Stop <+> 2 Stop 11/02/21 09:00:38 Manufacturing Teacher: [id number] Modifier: [id number] <+> 2 Procedure <+> 2 Primary Procedure <+> 2 Primary Surgeon <+> 2 Specialty <+> 2 Start <+> 2 Wound Class <+> 2 Anesthesia Type [facility] - Time Out Entry 1 Procedure to be Endoretrogradecholangiop Performed ancreatography, Sphincterotomy Time Out Time Out Pause Time 11/02/21 08:51:00 All activity Yes suspended (unless life threatening emergency) Team Verbally Correct patient Confirms Information identity, Consent form is present and accurate, Agreement on the procedure to be done, Correct patient position Antibiotic Yes Prophylaxis Administered Or In Progress Within the Last 60 Minutes Beta Jennifer N/A Administered Venous N/A Thromboembolism Prophylaxis Required Anticipated Critical Events Surgeon None expected Last Modified By: Flores Prince RN 11/02/21 09:01:17 [facility] - Time Out Audit 11/02/21 09:01:17 Manufacturing Teacher: [id number] Modifier: [id number] 1 <*> Procedure to be Performed Endoretrogradecholangiopancreatography [facility] - X-Ray and Images Entry 1 X-Ray/Imaging Type Fluoroscopy Fluoroscopy Type C-Arm Exposure Time 46 Last Modified By: Flores Prince RN 11/02/21 09:05:12 Case Comments <None> Finalized By: Flores Prince, RN Document Signatures Signed By: Flores Prince, JOSE 11/02/21 11:49 documented in this encounter Plan of Treatment Not on file documented as of this encounter Visit Diagnoses Not on filedocumented in this encounter Care Teams Threshing Machine Operator Relationship Specialty Start Date End Date Ivory Sam, CLINICAL TRIAL LEADER [address] [place] [address] PCP - General Nurse Practitioner 01/19/23 documented as of this encounter
--- OUTSIDE RECORDS SUMMARY | 2025-04-08 09:27 | XMS_ITS | Encounter Summary ---
Author Organization [employer] ([place], [place], [place], [place]) Address [address] [place] [address] Care Team Providers Care Chopped Strand Operator Name Role Phone Cecy, Ivory SEBASTIÁN Primary Care Provider [phone] Encounter Details Date Type Department Care Team (Late st Contact Info) Description 08/31/2021 Transcribed Document [facility] [place] Family Medicine [facility] [place] [address] ProviderOctavio MD [address], [place] [id number] Social History Tobacco Use Types Packs/Day Years Used Date Smoking Tobacco: Never Assessed Comments Unknown Sex and Gender Information Value Date Recorded Sex Assigned at Female 04/05/2022 12:50 PM CDT Legal Sex Female 12:50 PM CDT Gender Identity Female 04/05/2022 12:50 PM CDT Sexual Orientation Straight 09/12/2022 10 :24 AM PADDING GLUER documented as of this encounter Miscellaneous Notes * Cerner Conversion Note - Historical ProviderMD - 08/31/2021 8:32 [place] [address] ROSALEE YOUNG :1965 Visit Time:08/31/2021 What to do next Your Diagnosis Gastro-esophageal reflux disease without esophagitis, Gastro-esophageal reflux disease without esophagitis Instructions From Your Care Team Diet after Discharge: Resume usual diet as tolerated, Do not drink any alcoholic beverages, Drink at least 8-10 glasses of water per day Activity after Discharge: As tolerated, Rest and relax today, No strenuous activity Driving after Discharge: Do not drive for 24 hours May Return to Work/School: tomorrow Notify Provider of: Temp over 101F, chills, severe abdominal pain, black tarry stools or blood in stool, excessive vomiting or coffee ground looking appearance in vomit. Take PPI daily if not already on one. Follow-Up Appointments Follow Up with DEEP ARREOLA MD When Only if needed Comments The office will contact you in 7-10 days regarding biopsy results. Repeat endoscopy as needed for retreatment. Where: [address] [place] [address] [phone] Medications What How Much When Instructions Next [...] and medications per pharmacy guidance. Education Materials Gastritis, Adult Gastritis is swelling (inflammation) of [...] these instructions at home: Medicines ??? Take nvaw-vcn-hosnaiq and prescription medicines only as told by [...] alcohol: ? Limit your use to: ? 0???1 drink a day for women. ? 0???2 drinks a day for men. ? Be aware of how much alcohol is in your drink. In the [place] one drink equals one 12 oz bottle of beer (355 mL), one 5 oz glass of wine (148 mL), or one 1?? oz glass of hard liquor (44 mL). [...] provider. Document Revised: 02/12/2019 Document Reviewed: 02/12/2019 [employer] Patient Education ?? 202 [employer] Esophageal Dilatation Esophageal dilatation, also called esophageal [...] including vitamins, herbs, eye drops, creams, and kqca-lir-mbdboza medicines. ??? Any problems you or family [...] Follow these instructions at home: ??? Take hclb-kbv-mmgkejp and prescription medicines only as told by [...] provider. Document Revised: 07/22/2020 Document Reviewed: 07/31/2018 [employer] Patient Education ?? 2020 [employer]. Monitored Anesthesia Care Anesthesia refers to techniques, [...] including vitamins, herbs, eye drops, creams, and bwge-gfb-xxvxxip medicines. ??? Any problems you or family [...] Up to 2 hours before the procedure ??? you may continue to drink clear liquids, such as water, clear fruit juice, black coffee, and plain tea. Eating and drinking restrictions Follow instructions from your health care provider about eating and drinking, which may include: ??? 8 hours before the procedure ??? stop eating heavy meals or foods, such as meat, fried foods, or fatty foods. ??? 6 hours before the procedure ??? stop eating light meals or foods, such as toast or cereal. ??? 6 hours before the procedure ??? stop drinking milk or drinks that contain milk. ??? 2 hours before the procedure ??? stop drinking clear liquids. Medicines Ask your health care provider about: ??? Changing or stopping your regular medicines. This is especially important if you are taking diabetes medicines or blood thinners. ??? Taking medicines such as aspirin and ibuprofen. These medicines can thin your blood. Do not take these medicines unless your health care provider tells you to take them. ??? Taking shco-slr-lusygqp medicines, vitamins, herbs, and supplements. Tests and [...] provider. Document Revised: 10/29/2020 Document Reviewed: 08/27/2020 [employer] Patient Education ?? 2020 [employer]. ESOPHAGOGASTRODUODENOSCOPY Care After Read the instructions outlined [...] Assistance with quitting is available by contacting 3-162-IIFL-NOW. This is a free resource providing counseling, [...] This Visit (last charted value for your 08/31/2021 visit) No Laboratory or Other Results This Visit Patient Name:RICARDOROSALEE I have received this information and was given the opportunity to ask questions. Patient/Receptionist Doctor'S Office Name: Patient/Receptionist Doctor'S Office Signature: Relationship to Patient: Clinician/Hospital Receptionist Doctor'S Office Signature: Date: Electronically signed by Elbert, [facility] Conversion Netbackup Administrator Cerner at 01/25/2023 12:40 PM CDT documented in this encounter Plan of Treatment Not on file documented as of this encounter Visit Diagnoses Not on filedocumented in this encounter Care Teams Chopped Strand Operator Relationship Specialty Start Date End Date Ivory Sam, SEBASTIÁN [address] [place] [phone] PCP - General Nurse Practitioner 01/19/23 documented as of this encounter
--- OUTSIDE RECORDS SUMMARY | 2025-04-08 09:27 | XMS_ITS | Encounter Summary ---
Author Organization [employer] ([place], [place], [place], [place]) Address [address] [place] [address] Care Team Providers Care Glass Washer And Carrier Name Role Phone Ivory Sam APRN Primary Care Provider Encounter Details Date Type Department Care Team (Late st Contact Info) Description 12/06/2021 Transcribed Document [facility] [place] [facility] [place] [address] ProviderOctavio MD [address] [place] [address] Social History Tobacco Use Types Packs/Day Years Used Date Smoking Tobacco: Never Assessed Comments Unknown Sex and Gender Information Value Date Recorded Sex Assigned at Female 04/05/2022 12:50 PM CDT Legal Sex Female 12:50 PM CDT Gender Identity Female 04/05/2022 12:50 PM CDT Sexual Orientation Straight 09/12/2022 10 :24 AM FILLER OPERATOR documented as of this encounter Miscellaneous Notes * Cerner Conversion Note - Historical ProviderMD - 12/06/2021 8:00 AM FILLER OPERATOR [facility] PreOp Summary Primary Physician: DEEP ARREOLA MD Finalized Date/Time: 12/06/21 07:30:05 Pt. Name: ROSALEE YOUNG/Sex: 1965 Female Med Rec #: [id number] Physician: DEEP ARREOLA MD Financial #: [id number] Pt. Type: E Room/Bed: N/2 Admit/Disch: 12/06/21 06:59:00 - Institution: [facility] PreOp Case Times Entry 1 In Preop 12/06/21 07:09:00 Ready for Holding 12/06/21 07:30:00 Room Patient Ready for 12/06/21 07:30:00 Surgery Patient Out of Preop 12/06/21 07:30:00 Patient Out of n/a Holding Room [facility] PreOp Case Times Audit 12/06/21 07:30:03 Improvement Spec: [id number] Modifier: [id number] <+> 1 Patient Out of Preop <+> 1 Patient Ready for Surgery <+> 1 Ready for Holding Room Finalized By: Lorenza Oliveira, Rn Document Signatures Signed By: Lorenza Oliveira Rn 12/06/21 07:30 documented in this encounter Plan of Treatment Not on file documented as of this encounter Visit Diagnoses Not on filedocumented in this encounter Care Teams Glass Washer And Carrier Relationship Specialty Start Date End Date Ivory Sam, SEBASTIÁN [address] [place] [phone] PCP - General Nurse Practitioner 01/19/23 documented as of this encounter
--- OUTSIDE RECORDS SUMMARY | 2025-04-08 09:27 | XMS_ITS | Encounter Summary ---
Author Organization [employer] ([place], [place], [place], [place]) Address [address] [place] [address] Care Team Providers Care Frame Expander Name Role Phone Ivory Sam APRN Primary Care Provider [phone] Encounter Details Date Type Department Care Team (Late st Contact Info) Description 08/31/2021 Transcribed Document [facility] [place] [facility] [place] [address] ProviderOctavio MD [address] [place] [address] Social History Tobacco Use Types Packs/Day Years Used Date Smoking Tobacco: Never Assessed Comments Unknown Sex and Gender Information Value Date Recorded Sex Assigned at Female 04/05/2022 12:50 PM CDT Legal Sex Female 12:50 PM CDT Gender Identity Female 04/05/2022 12:50 PM CDT Sexual Orientation Straight 09/12/2022 10 :24 AM CTE TEACHER documented as of this encounter Miscellaneous Notes * Cerner Conversion Note - Octavio ProviderMD - 08/31/2021 8:17 AM CTE TEACHER ALECE Endo PACU Summary Primary Physician: DEEP ARREOLA MD Finalized Date/Time: 08/31/21 08:52:43 Pt. Name: ROSALEE YOUNG/Sex: 1965 Female Med Rec #: [id number] Physician: DEEP ARREOLA MD Financial #: [id number] Pt. Type: E Room/Bed: [facility] [place]/ Admit/Disch: 08/31/21 06:36:00 - Institution: [facility] PACU Case Times Entry 1 In PACU I 08/31/21 08:26:00 Ready for PACU 08/31/21 08:52:00 Discharge Discharge from PACU 08/31/21 09:00:00 I [facility]o PACU Case Times Audit 08/31/21 08:52:38 Cst: [id number] Modifier: [id number] <+> 1 Ready for PACU Discharge <+> 1 Discharge from PACU I Finalized By: Flores Prince RN Document Signatures Signed By: Flores Prince RN 08/31/21 08:52 documented in this encounter Plan of Treatment Not on file documented as of this encounter Visit Diagnoses Not on filedocumented in this encounter Care Teams Frame Expander Relationship Specialty Start Date End Date Ivory Sam, ASSOCIATE ARTISTIC DIRECTOR [address] [place] [id number] PCP - General Nurse Practitioner 01/19/23 documented as of this encounter
--- OUTSIDE RECORDS SUMMARY | 2025-04-08 09:27 | XMS_ITS | Encounter Summary ---
Author Organization [employer] ([place], [place], [place], [place]) Address [address] [place] [address] Care Team Providers Care Cell Room Supervisor Name Role Phone CecyIvory eduardo SEBASTIÁN Primary Care Provider [phone] Encounter Details Date Type Department Care Team (Late st Contact Info) Description 11/02/2021 Transcribed Document [facility] [place] [facility] [place] [address] ProviderOctavio MD [address], [place] [id number] Social History Tobacco Use Types Packs/Day Years Used Date Smoking Tobacco: Never Assessed Comments Unknown Sex and Gender Information Value Date Recorded Sex Assigned at Female 04/05/2022 12:50 PM CDT Legal Sex Female 12:50 PM CDT Gender Identity Female 04/05/2022 12:50 PM CDT Sexual Orientation Straight 09/12/2022 10 :24 AM TIRE VULCANIZER documented as of this encounter Miscellaneous Notes * Cerner Conversion Note - Historical ProviderMD - 11/02/2021 7:55 AM TIRE VULCANIZER Pre Procedure Adult Entered On: 11/02/2021 8:02 EST Performed On: 11/02/2021 7:55 EST by Megan Valentine, JOSE-PATIENT CARE BEDSIDE NON-EXEMPT Height and Weight, Clinical Dosing Height Source : Stated Height Entry Format : [place] Height, Feet : 5 ft(Converted to: 152 cm, 60 Inch) Height, Inches : 3 Inch(Converted to: 0 ft 3 Inch, 7.62 cm) Clinical Height : 160.02 cm Weight Source : Standing scale Weight Entry Format : [place] Clinical Dosing Weight : 48.81 kg Weight, Pounds : 107 lb Weight, Ounces : 6 oz Body Surface Area (BSA) : 1.49 m2 Body Mass Index : 19.1 kg/m2 Stella Body Weight : 52 kg Megan Valentine RN-PATIENT CARE BEDSIDE NON-EXEMPT - 11/02/2021 7:55 EST Health Histories Smoking Status : Former smoker, quit more than 30 days ago Smokeless Tobacco Status : Never Megan Valentine RN-PATIENT CARE BEDSIDE NON-EXEMPT - 11/02/2021 7:55 EST Social History (As Of: 11/02/2021 08:02:23 EST) Tobacco: Former smoker, quit more than [...] Updated: 07/27/2021 07:40:32 EDT by Lorenza Oliveira, Jose) Infectious Disease History Does patient have symptoms of COVID-19? : No Has the Patient Been Tested for COVID-19 in the last 14 days? : Yes, Patient stated results Negative Does the Patient state known exposure to a COVID-19 positive case in the last 14 days? : No Patient Vaccinated for COVID-19 : Not vaccinated Does Patient want a COVID-19 Vaccine? : No Megan Valentine RN-PATIENT CARE BEDSIDE NON-EXEMPT - 11/02/2021 7:55 EST Infectious Disease Risk Screening Grid Cough < 2 wks of unknown origin : NO Cough > 2 weeks : NO Blood in Sputum : NO Fever or self-reported Fever : NO Rash of unknown origin : NO Headache : NO Stiff neck : NO Night Sweats : NO Unexplained Weight Loss : NO Diarrhea (3 episode per day) : NO Megan Valentine RN-PATIENT CARE BEDSIDE NON-EXEMPT - 11/02/2021 7:55 EST Physical contact outside [place] in the last 30 days : No Hospitalized in Foreign Country : No Infectious Disease History : Chicken pox/Shingles INF Disease TB Screening Calc : 0 INF Disease Recent Travel Calc : 0 Megan Valentine RN-PATIENT CARE [facility] NON-EXEMPT - 11/02/2021 7:55 EST COVID19 PreProcedure Screening Is this an Emergent or Add on Procedure? : No Date PreProcedure COVID-19 test known? : Yes Date of PreProcedure COVID-19 : 10/29/2021 EST Has patient been isolated since the test : Yes Exposed to COVID19 symptoms since test? : No Megan Valentine RN-PATIENT CARE [facility] NON-EXEMPT - 11/02/2021 7:55 EST Anesthesia/Transfusion History Family History of Anesthesia Reaction : No prior transfusion(s) Transfusion History : Prior anesthesia reaction Type of Anesthesia Reaction : Excessive nausea/vomiting Family History of Anesthesia Reaction : None Megan Valentine RN-PATIENT CARE [facility] NON-EXEMPT - 11/02/2021 7:55 EST Functional Assessment Living Situation : Home Current Home Treatments : None Megan Valentine RN-PATIENT CARE [facility] NON-EXEMPT - 11/02/2021 7:55 EST [place] Suicide Severity Rating Scale (C-SSRS) CSSRS Past Month Wish to be : No CSSRS Past Month Suicidal Thoughts : No CSSRS Lifetime Suicide Behavior : No Suicide Severity Rating Score : 0 Suicide Severity Rating : No Additional Care Required at this time Megan Valentine RN-PATIENT CARE [facility] NON-EXEMPT - 11/02/2021 7:55 EST Psychosocial History Currently in Unsafe Situation : No Megan Valentine RN-PATIENT CARE [facility] NON-EXEMPT - 11/02/2021 7:55 EST Advance Directive Patient has Advance Directive *Q : No, patient refuses Advance Directive information Megan Valentine RN-PATIENT CARE [facility] NON-EXEMPT - 11/02/2021 7:55 EST General Info Want Family/Rep/Phys Notified of Admit : No Emergency Contact #1 : Gene Emergency Contact #1 Emergency Contact #1 Relationship : spouse Emergency Contact #2 : . Emergency Contact #2 Phone Number : . Emergency Contact #2 Relationship : . Primary Language : Tunisian Communication Barrier : None Functional Tester Needed : No Megan Valentine RN-PATIENT CARE BEDSIDE NON-EXEMPT - 11/02/2021 7:55 EST Sleep Apnea Risk Assmt Hx of [...] Sleep Apnea Risk Level Score : 1 Megan Valentine RN-PATIENT CARE BEDSIDE NON-EXEMPT - 11/02/2021 7:55 EST Lorenzo Scale Lorenzo Sensory Perception : No impairment Lorenzo Moisture : Rarely moist Lorenzo Activity : Walks frequently Lorenzo Mobility : No limitation Lorenzo Nutrition : Excellent Lorenzo Friction and Shear : No apparent problem Lorenzo Score : 23 Megan Valentine RN-PATIENT CARE BEDSIDE NON-EXEMPT - 11/02/2021 7:55 EST Fall Risk Scales ABCs Fall Injury [...] Scale Risk Level : 0-24 Low Risk [place] Fall Interventions : Adequate lighting, Assistive devices within reach, Bed in low position, Call device within reach Megan Valentine RN-PATIENT CARE BEDSIDE NON-EXEMPT - 11/02/2021 7:55 EST Valuables and Belongings Valuables and Belongings : Clothing Clothing : Common streetwear Clothing Disposition : Bedside Megan Valentine RN-PATIENT CARE BEDSIDE NON-EXEMPT - 11/02/2021 7:55 EST documented in this encounter Plan of Treatment Not on file documented as of this encounter Visit Diagnoses Not on filedocumented in this encounter Care Teams Cell Room Supervisor Relationship Specialty Start Date End Date Ivory Sam, SEBASTIÁN [address] [place] [address] PCP - General Nurse Practitioner 01/19/23 documented as of this encounter
--- OUTSIDE RECORDS SUMMARY | 2025-04-08 09:27 | XMS_ITS | Encounter Summary ---
Author Organization [employer] ([place], [place], [place], [place]) Address [address] [place] [address] Care Team Providers Care Ring Packer Name Role Phone Ivory Sam SUPERVISOR THROWING DEPARTMENT Primary Care Provider [phone] Encounter Details Date Type Department Care Team (Late st Contact Info) Description 11/02/[address] [facility] [place] Family Medicine [address] [place] [address] ProviderOctavio MD [address] [place] [address] Social History Tobacco Use Types Packs/Day Years Used Date Smoking Tobacco: Never Assessed Comments Unknown Sex and Gender Information Value Date Recorded Sex Assigned at Female 04/05/2022 12:50 PM CDT Legal Sex Female 12:50 PM CDT Gender Identity Female 04/05/2022 12:50 PM CDT Sexual Orientation Straight 09/12/2022 10 :24 AM NEON ELECTRICIAN documented as of this encounter Miscellaneous Notes * Cerner Conversion Note - Historical ProviderMD - 11/02/2021 9:16 AM NEON ELECTRICIAN [address] [address] ROSALEE YOUNG :1965 Visit Time:11/02/2021 What to do next Your Diagnosis Fistula of bile duct, Fistula of bile duct Follow-Up Appointments Follow Up with DEEP ARREOLA MD When Within 2 to 3 days Comments Refer to report for further instructionsCall the office for any concerns or questions Where: [address] [facility] [address] [place] [address]- Medications What How Much When Instructions Next Dose albuterol (Albuterol (Eqv-Proventil HFA)) Every 6 Hours aspirin (aspirin 81 mg oral capsule) Every 4 Hours busPIRone (BuSpar) multivitamin with minerals (Vitamin D with Minerals [...] and medications per pharmacy guidance. Education Materials Endoscopic Retrograde Cholangiopancreatogram, Care After This sheet gives you information about how to care for yourself after your procedure. Your health care provider may also give you more specific instructions. If you have problems or questions, contact your health care provider. What can I expect after the procedure? After the procedure, it is common to have: ??? Soreness in your throat. ??? Nausea. ??? Bloating. ??? Dizziness. ??? Tiredness (fatigue). Follow these instructions at home: ??? Take mbzo-jsu-pbxqjfs and prescription medicines only as told by your health care provider. ??? If you were prescribed an antibiotic medicine, take it as told by your health care provider. Do not stop using the antibiotic even if you start to feel better. ??? If you were given a sedative during the procedure, it can affect you for several hours. Do not drive or operate machinery until your health care provider says that it is safe. ??? Have someone stay with you for 24 hours after the procedure. ??? Return to your normal activities as told by your health care provider. Ask your health care provider what activities are safe for you. ??? Return to eating what you normally do as soon as you feel well enough or as told by your health care provider. ??? Keep all follow-up visits as told by your health care provider. This is important. Contact a health care provider if you: ??? Have pain in your abdomen that does not get better with medicine. ??? Develop signs of infection, such as: ? Chills or fever. ? Feeling unwell. Get help right away if you: ??? Have difficulty swallowing. ??? Have worsening pain in your throat, chest, or abdomen. ??? Vomit bright red blood or a substance that looks like coffee grounds. ??? Have bloody or black, tarry stools. ??? Have a fever. ??? Have a sudden increase in swelling (bloating) in your abdomen. Summary ??? After the procedure, it is common to feel tired, and to have some discomfort in your throat or some bloating of your abdomen. ??? If you were given a sedative during the procedure, it can affect you for several hours. Do not drive or operate machinery until your health care provider says that it is safe. Have someone stay with you for 24 hours after the procedure. ??? Contact your health care provider if you have signs of infection, such as chills, fever, feeling unwell, or if you have pain that does not improve with medicine. ??? Get help right away if you have trouble swallowing, worsening pain, bloody or black vomit, bloody or black stools, a fever, or increased swelling in your abdomen. This information is not intended to replace advice given to you by your health care provider. Make sure you discuss any questions you have with your health care provider. Document Revised: 06/09/2020 Document Reviewed: 06/09/2020 [employer] Patient Education ?? 2020 [employer]. Monitored Anesthesia Care Anesthesia refers to techniques, [...] including vitamins, herbs, eye drops, creams, and wwhq-ovf-dhewqzt medicines. ??? Any problems you or family [...] tells you to take them. ??? Taking awyp-axi-evtwnty medicines, vitamins, herbs, and supplements. Tests and exams ??? You will have a physical exam. ??? You may have blood tests done to show: ? How well your kidneys and liver are working. ? How well your blood can clot. General instructions ??? Plan to have a responsible adult take you home from the hospital or clinic. ??? If you will be going home right after the procedure, plan to have a responsible adult care for you for the time you are told. This is important. What happens during the procedure? Your blood [...] ??? Plan to have a responsible adult take you home from the hospital or clinic. This information is not intended to replace advice given to you by your health care provider. Make sure you discuss any questions you have with your health care provider. Document Revised: 06/10/2021 Document Reviewed: 08/27/2020 [employer] Patient Education ?? 2020 [employer]car. Emergency Awareness and Preventative Care STROKE is [...] Assistance with quitting is available by contacting -NOW. This is a free resource providing counseling, [...] This Visit (last charted value for your 11/02/2021 visit) No Laboratory or Other Results This Visit Patient Name:RICARDO ROSALEEROXANA ROOT I have received this information and was given the opportunity to ask questions. Patient/Boats Renter Name: Patient/Boats Renter Signature: Relationship to Patient: Clinician/Hospital Boats Renter Signature: Date: Electronically signed by Elbert, [facility] Conversion Orthopedics Teacher Cerner at 01/25/2023 12:40 PM CDT documented in this encounter Plan of Treatment Not on file documented as of this encounter Visit Diagnoses Not on filedocumented in this encounter Care Teams Ring Packer Relationship Specialty Start Date End Date Ivory Sam, SUPERVISOR THROWING DEPARTMENT [address] [place] [address] PCP - General Nurse Practitioner 01/19/23 documented as of this encounter
--- OUTSIDE RECORDS SUMMARY | 2025-04-08 09:27 | XMS_ITS | Encounter Summary ---
Author Organization [employer] ([place], [place], [place], [place]) Address [address] [place] [address] Care Team Providers Care Laundry Room Attendant Name Role Phone Raheem Samy SEBASTIÁN Primary Care Provider [phone] Encounter Details Date Type Department Care Team (Late st Contact Info) Description 12/06/2021 Transcribed Document [facility] [place] [facility] [place] [address] ProviderOctavio MD [address], [place] [address] Social History Tobacco Use Types Packs/Day Years Used Date Smoking Tobacco: Never Assessed Comments Unknown Sex and Gender Information Value Date Recorded Sex Assigned at Female 04/05/2022 12:50 PM CDT Legal Sex Female 12:50 PM CDT Gender Identity Female 04/05/2022 12:50 PM CDT Sexual Orientation Straight 09/12/2022 10 :24 AM PROGRAM MANAGEMENT MANAGER documented as of this encounter Miscellaneous Notes * Cerner Conversion Note - Historical ProviderMD - 12/06/2021 8:51 AM PROGRAM MANAGEMENT MANAGER Patient Education Materials Follows: ESOPHAGOGASTRODUODENOSCOPY Care After [...] You have black, tarry, or bloody stools. Pharmacology Monitored Anesthesia Care, Care After This [...] you are awake and alert. ??? Take jvaz-qjm-kuniufs and prescription medicines only as told by [...] provider. Document Revised: 06/10/2021 Document Reviewed: 08/27/2020 [employer] Patient Education ? 2020 [employer]. documented in this encounter Plan of Treatment Not on file documented as of this encounter Visit Diagnoses Not on filedocumented in this encounter Care Teams Laundry Room Attendant Relationship Specialty Start Date End Date Ivory Sam, SEBASTIÁN [address] [place] [phone] PCP - General Nurse Practitioner 01/19/23 documented as of this encounter
--- OUTSIDE RECORDS SUMMARY | 2025-04-08 09:27 | XMS_ITS | Encounter Summary ---
Author Organization [employer] ([place], [place], [place], [place]) Address [address] [facility] [place] [address] Care Team Providers Care Material Chaser Name Role Phone Ivory Sam APRN Primary Care Provider [phone] Encounter Details Date Type Department Care Team (Late st Contact Info) Description 11/02/2021 Transcribed Document [facility] [place] [facility] [place] [address] ProviderOctavio MD [address], [place] [address] Social History Tobacco Use Types Packs/Day Years Used Date Smoking Tobacco: Never Assessed Comments Unknown Sex and Gender Information Value Date Recorded Sex Assigned at Female 04/05/2022 12:50 PM CDT Legal Sex Female 12:50 PM CDT Gender Identity Female 04/05/2022 12:50 PM CDT Sexual Orientation Straight 09/12/2022 10 :24 AM HOUSETRAILER SERVICER documented as of this encounter Miscellaneous Notes * Cerner Conversion Note - Octavio ProviderMD - 11/02/2021 9:16 AM HOUSETRAILER SERVICER Patient Education Materials Follows: Monitored Anesthesia Care Anesthesia refers to techniques, [...] including vitamins, herbs, eye drops, creams, and zwxn-wto-jppqzdw medicines. ??? Any problems you or family [...] tells you to take them. ??? Taking uvnp-dhf-bzqfphe medicines, vitamins, herbs, and supplements. Tests and [...] provider. Document Revised: 06/10/2021 Document Reviewed: 08/27/2020 [employer] Patient Education ? 2020 [employer]. Radiology Endoscopic Retrograde Cholangiopancreatogram, Care After This sheet [...] Follow these instructions at home: ??? Take xlmb-tgn-cgpjbxj and prescription medicines only as told by [...] provider. Document Revised: 06/09/2020 Document Reviewed: 06/09/2020 [employer] Patient Education ? 2020 [employer]. documented in this encounter Plan of Treatment Not on file documented as of this encounter Visit Diagnoses Not on filedocumented in this encounter Care Teams Material Chaser Relationship Specialty Start Date End Date Ivory Sam APRN [address] [place] [address] PCP - General Nurse Practitioner 01/19/23 documented as of this encounter
--- OUTSIDE RECORDS SUMMARY | 2025-04-08 09:28 | XMS_ITS | Referral Summary ---
Author Organization [employer] ([place], [place], [place], [place]) Address [address] [place] [address] Care Team Providers Care Advance Seal Delivery System Maintainer Name Role Phone Cecy, Ivory SEBASTIÁN Primary Care Provider [phone] Allergies Active Allergy Reactions Criticality Noted Date Comments Clopidogrel Other (See Comments) 07/18/2023 Sacubitril-Valsartan Other (See Comments) 11/24/2022 Hypotension/bradyc ardia Iodinated Contrast Media Swelling High 08/23/2022 Levofloxacin Other (See Comments) Low 01/05/2017 Liotnl-Hwfbeqsj-Ylaxagy 11/24/2022 Lisinopril Other (See Comments) 08/23/2022 Nitrofurantoin Monohyd/M-Cryst Other (See Comments) 08/23/2022 Metoprolol Low 01/05/2017 Other reaction(s): Confused, Confused, Unknown Nitrofurantoin 06/03/2015 Pantoprazole 11/24/2022 Penicillins Other (See Comments) 07/18/2023 Poison Maira Extract Other (See Comments) 07/18/2023 Poison Paola Extract Rash Low 07/18/2023 Lgpoutb-Cmk-Rfx Reductase Inhibitors Swelling High 09/23/2021 Medications aspirin 81 MG EC tablet Take 1 tablet (81 mg total) by mouth daily. Active clopidogreL (PLAVIX) 75 mg tablet Take by mouth. 3 Active multivitamin with minerals tablet Tab, Oral, Daily, 0 Refill(s) 1 Active potassium chloride SA (K-DUR,KLOR-CON-M) 20 MEQ tablet K-Dur 20 mEq tablet,extende d release Take 0.5 tablets as needed by oral route. Active famotidine (PEPCID) 10 MG tablet famotidine 10 mg tablet Take 1 tablet twice a day by oral route. Active traMADoL (ULTRAM) 50 mg tablet Take 0.5 tablets (25 mg total) by mouth every 8 (eight) hours as needed. Max Daily Amount: 75 mg 4 Active ondansetron (ZOFRAN-ODT) 4 MG disintegrating tablet Take 1 tablet (4 mg total) by mouth every 6 (six) hours as needed. 4 Active HYDROcodone-acetam inophen (NORCO) 5-325 mg per tablet Take 1 tablet by mouth every 6 (six) hours as needed. Max Daily Amount: 4 tablets 4 Active Active Problems Problem Noted Date Diagnosed Date At risk for sleep apnea 07/18/2023 Emphysema lung 07/18/2023 Myocardial infarction 07/18/2023 Chronic idiopathic constipation 07/18/2023 Hyperlipidemia 01/08/2023 Orthostatic hypotension 01/08/2023 Ischemic congestive cardiomyopathy 01/08/2023 Overview (07/18/2023): MUGA EF 31% NSTEMI (non-ST elevated myocardial infarction) 1 11/13/2021 Hypothyroid 08/23/2022 Social History Tobacco Use Types Packs/Day Years Used Date Smoking Tobacco: Former Passive Smoke Exposure: Past Smokeless Tobacco: Never Tobacco Cessation:Counseling Given: Not Answered Comments:Quit 2017 Alcohol Use Standard Drinks/Week Comments Never 0 (1 standard drink = 0.6 oz pur e alcohol) Family and Community Support Answer Izaiah e Recorded Help with Day to Day Activities Not on file 10/27/2023 Feeling Lonely or Isolated Not on file 10/27 Educational Attainment Answer Date Pablo rded Speak language other than Bhutanese at home Not on file 10/27/2023 Want help with school or training Not on file 10/27/2023 Substance Use Answer Date Recorded Used prescription meds for non-medical reasons N ot on file 10/27/2023 Used illegal drugs past 12 months Not on file 10/27/2023 Comments No Sex and Gender Information Value Date Recorded Sex Assigned at Female 04/05/2022 12:50 PM CDT Legal Sex Female 12:50 PM CDT Gender Identity Female 04/05/2022 12:50 PM CDT Sexual Orientation Straight 09/12/2022 10 :24 AM [employer] SAL[employer]ANT Last Filed Vital Signs Vital Sign Reading Time Taken Comments Blood Pressure 138/80 10/17/2024 2:42 PM EST Pulse 76 10/17/2024 2:41 PM EST Temperature 37.1 C (98.7 F) 06/23/2024 5:21 PM EDT Respiratory Rate 18 06/23/2024 5:21 PM EDT Oxygen Saturation 98% 10/17/2024 2:41 PM EST Inhaled Oxygen Concentration - - Weight 49.6 kg (109 lb 6.4 oz) 10/17/2024 2:41 P M EST Height 157.5 cm (5' 2 ) 10/17/2024 2:41 PM EST Body Mass Index 20.01 10/17/2024 2:41 PM EST Plan of Treatment Not on file Medical Devices Implanted Type Area Welder Tack Device Identifier Shelf Expiration Date Model / Serial / Lot Defibrillator Panfilo Steward Icd [id number] - [id number] Implanted:Qty: 1 on 01/19/2023 at [facility] PACEMAKER/ ICD BI VALVE DEVICE Chest Wall [employer] [facility]:VASC DEV [id number] / / Lead Pcng 58cm 6.8fr 11mmspc 7122q/58 - [id number] Implanted:Qty: 1 on 01/19/2023 at [facility] PACEMAKER/ ICD BI VALVE DEVICE Heart [employer] MED:CARDIAC RHYM MGMT 7122Q/58 / / Lead Tendril Sts 46cm 2088tc/46 - [id number] Implanted:Qty: 1 on 01/19/2023 at [facility] PACEMAKER/ ICD CHAMBER DEVICE Heart [employer] MED:CARDIAC RHYM MGMT 2088TC/46 / / Insurance [facility] MEDICAID Advance Directives For more information, please contact: [phone] * Full Code (Latest Code Status on File) Date Activated Date Inactivated Comments 09/12/2022 11:01 AM 09/16/2022 4:34 PM If no pulse : No intervention If has pulse: Use intubation, mechanical ventilation, defibrillation, ACLS medications, or cardioversion as indicated. Call DOOR CLOSER MECHANIC * Full Code Date Activated Date Inactivated Comments 09/12/2022 10:57 AM 09/12/2022 11:01 AM -Attempt R esuscitation if person has no pulse and is not breathing. -If no pulse or not breathing attempt CPR/CODE. -Call Rapid Response if patient is in distress. Care Teams Advance Seal Delivery System Maintainer Relationship Specialty Start Date End Date Ivory Sam, SEBASTIÁN [address] [place] [phone] PCP - General Nurse Practitioner 01/19/23
--- OUTSIDE RECORDS SUMMARY | 2025-04-08 09:28 | XMS_ITS | Data Portability ---
Author Organization [facility] Address [address] [place] [address] Assessment Encounter Date Assessment Date Assessment LastModified by Organization Details LastModified Time 02/03/2023 02/03/2023 -Medications were reviewed and any necessary updates and renewals were made, patient instructed to complete as prescribed. -The potential side effects of medications were discussed. -Counseling was done on care goals and ways to prevent future hospitalizatio ns. -Further treatment per orders listed below. [email or web address] Not available 02/02/2023 08:30:50 07/12/2024 07/12/2024 -Medications were reviewed and any necessary updates and renewals were made, patient instructed to complete as prescribed. -The potential side effects of medications were discussed. -Counseling was done on care goals and ways to prevent future hospitalizatio ns. -Further treatment per orders listed below. [email or web address] Not available 07/12/2024 09:15:33 09/30/2024 09/30/2024 -Medications were reviewed and any necessary updates and renewals were made, patient instructed to complete as prescribed. -The potential side effects of medications were discussed. -Counseling was done on care goals and ways to prevent future hospitalizatio ns. -Further treatment per orders listed below. Not available 09/30/2024 08:49:58 Plan of Treatment Reminders Order Date Submit Date Provider Last Modified By Organization Details Last Modified Time Details Appointments None recorded . Lab ERNESTO (antinuc lear antibodi es) screen, serum 2023 024 [facility], [address] [place] [address], [address], 4 10:13:32 food allergen panel, serum 2023 [facility], [address] [place] [address], [address], 4 10:13:33 celiac disease serology panel, serum 2023 [facility], [address] [place] [address], [address], 4 10:13:21 vitamin B12 + folate, serum or blood 2023 [facility], [address] [place] [address], [address], 4 10:13:28 CBC w/ auto diff 2023 [facility], [address] [place] [address], [address], 4 10:13:24 vitamin D, 25-hydro xy, total, serum 2023 [facility], [address] [place] [address], [address], 4 10:13:31 iron + total iron-bin ding capacity (TIBC), serum 2023 [facility], [address] [place] [address], [address], 4 10:13:27 TSH + free T4, serum 2023 [facility], [address] [place] [address], [address], 4 10:13:23 CMP, serum or plasma 2023 [facility], [address] [place] [address], [address], 4 10:13:25 HbA1c (hemoglo bin A1c), blood 2023 024 [facility], [address], [place], [address], 4 10:13:29 CBC w/ auto diff 2022 023 [facility], [address], [place], [address], 3 08:18:52 CMP, serum or plasma 2022 023 [facility], [address] [facility] [place], [place], [address], 3 08:18:52 nitish ial disease panel, serum 2022 023 [facility], [facility] [address] [facility] [place], [place], [address], 3 08:18:53 PTH (parathy roid hormone) , intact, serum or plasma 2022 023 [facility], [address], [place], [address], 3 15:08:54 calcium, ionized, quant ISE, serum or plasma 2022 023 [facility], Bob Rodriguez [facility] [place], [place], [address], 3 15:08:53 TSH + free T4, serum 2022 023 [facility], [facility] [place], [address], 3 15:08:52 T3, free, serum or plasma 2022 023 [facility], [facility] [address], [place], [address], 3 15:08:[address] referral 2023 024 TRAE Durán MD, [address], [place], [address], 5 12:03:38 allergis t referral 2023 024 Ashutosh Mueller MD, [address], [place], [address], 5 14:30:09 pain manageme nt referral 2023 024 [facility], [address] [place] [address] , [facility] [address], [place], [address], 4 08:26:33 Procedures None recorded . Surgeries None recorded . Imaging US, thyroid [email or web address], [address], 3 11:11:48 Medication Orders ondanset hansa 4 mg disinteg rating tablet 2024 025 [facility], [address] [place] [address], [place], [address], 5 05:01:40 tramadol 25 mg tablet [address], [address], 4 09:59:09 tramadol 50 mg tablet [address], [address], 4 10:14:50 doxycycl ine monohydr ate 100 mg tablet 2022 023 [email or web address] [facility], [address] [place], [address], 08:12:17 Patient TargetsNo targets recorded. Patient Instructions Encounter Date Encounter Id Patient Instructions Last Modified By Organization Details Last Modified Time 02/03/2023 [id number] hypothyroidism: care instructions [email or web address] Not available 02/03/2023 09:51:35 Plan: - RTC if s/sx persist or worsen. [email or web address] Not available 02/03/2023 10:26:26 03/28/2023 [id number] learning about healthy weight [email or web address] Not available 03/28/2023 11:21:14 body mass index: care instructions [email or web address] Not available 03/28/2023 11:21:15 Call with change s RTC or ED if symptoms change or worsen Keep next interval checkup Cont. chronic meds as prescribed Chronic conditions are stable Discussed natural and expected course of this diagnosis and need to alert me if symptoms do not follow expected course or if any worsens [email or web address] Not available 03/28/2023 11:22:36 07/12/2024 [id number] Follow up as needed. The patient will report any new or worsening symptoms. The patient will return to clinic if new or worsening symptoms are noted, or if if the symptoms do not resolve. If marked worsening of the symptoms is noted the patient will go to the emergency department of their choice. Not available 07/12/2024 10:42:04 09/30/2024 [id number] Follow up as needed. The patient will report any new or worsening symptoms. The patient will return to clinic if new or worsening symptoms are noted, or if if the symptoms do not resolve. If marked worsening of the symptoms is noted the patient will go to the emergency department of their choice. Not available 09/30/2024 09:03:17 03/18/2025 [id number] learning about healthy weight Not available 03/18/2025 14:23:12 body mass index: care instructions Not available 03/18/2025 14:23:12 Follow up as needed. The patient will report any new or worsening symptoms. The patient will return to clinic if new or worsening symptoms are noted, or if if the symptoms do not resolve. If marked worsening of the symptoms is noted the patient will go to the emergency department of their choice. Not available 03/18/2025 14:33:39 Reason for Referral Pain Management Referral for Chronic pancreatitis Referring Physician: [facility], Encounter Date: 07/12/2024 Rn L And D Referral for Aller gy to food Referring Physician: [facility], Encounter Date: 07/12/2024 Casino Banker Referral for Cholelithiasis with obstruction Referring Physician: [facility], Encounter Date: 09/30/2024 Results Created Date Observation Date Name Description Value Unit Range Abnormal Flag Note LastModifiedBy Organization Detail LastModifiedTime 02/04/2002/04/2023 TSH+F REE T4 TSH 1.970 uIU/m L 0.450- 4.500 Not Available [facility] ([facility]) [address] [place], [address], 02/06/2023 15:08:52 02/04/2002/04/2023 TSH+F REE T4 T4,free(dire ct) 1.36 NG/dL 0.82-1 .77 Not Available [facility] ([facility]) [address] [place], [address], 02/06/2023 15:08:52 02/04/2002/06/2023 CALCI UM, IONIZ ED, SERUM calcium, ionized, serum 5.1 mg/dL 4.5-5. 6 Not Available [facility] ([facility]) [address] [place], [address], 02/06/2023 15:08:53 02/04/2002/04/2023 TRIIO DOTHY PATRICE E (T3), FREE triiodothyro nine (T3), free 2.8 pg/mL 2.0-4. 4 Not Available [facility] ([facility]) [address] [place], [address], 02/06/2023 15:08:54 02/04/2002/04/2023 PTH, INTAC T PTH, intact 30 pg/mL 15-65 Not Available [facility] ([facility]) [address] [place], [address], 02/06/2023 15:08:54 03/28/20 23 03/29/2023 CBC WITH DIFFE RENTI AL/PL ATELE T WBC 4.4 x10e3 /uL 3.4-10 .8 Not Available [facility] ([facility]) [address] [place], [address], 04/01/2023 08:18:51 03/28/20 23 03/29/2023 CBC WITH DIFFE RENTI AL/PL ATELE T RBC 4.64 x10e6 /uL 3.77-5 .28 Not Available [facility] ([facility]) [address] [place], [address], 04/01/2023 08:18:51 03/28/20 23 03/29/2023 CBC WITH DIFFE RENTI AL/PL ATELE T hemoglobin 13.4 g/dL 11.1-1 5.9 Not Available [facility] ([facility]) [address] [place], [address], 04/01/2023 08:18:51 03/28/20 23 03/29/2023 CBC WITH DIFFE RENTI AL/PL ATELE T hematocrit 41.5 % 34.0-4 6.6 Not Available [facility] ([facility]) [address] [place], [address], 04/01/2023 08:18:51 03/28/20 23 03/29/2023 CBC WITH DIFFE RENTI AL/PL ATELE T MCV 89 fL 79-97 Not Available [facility] ([facility]) [address] [place], [address], 04/01/2023 08:18:51 03/28/20 23 03/29/2023 CBC WITH DIFFE RENTI AL/PL ATELE T MCH 28.9 pg 26.6-3 3.0 Not Available [facility] ([facility]) [address] [place], [address], 04/01/2023 08:18:51 03/28/20 23 03/29/2023 CBC WITH DIFFE RENTI AL/PL ATELE T MCHC 32.3 g/dL 31.5-3 5.7 Not Available [facility] ([facility]) [address] [place], [address], 04/01/2023 08:18:51 03/28/20 23 03/29/2023 CBC WITH DIFFE RENTI AL/PL ATELE T RDW 13.9 % 11.7-1 5.4 Not Available [facility] ([facility]) [address] [place], [address], 04/01/2023 08:18:51 03/28/20 23 03/29/2023 CBC WITH DIFFE RENTI AL/PL ATELE T platelets 166 x10e3 /uL 150-45 0 Not Available [facility] ([facility]) [address] [place], [address], 04/01/2023 08:18:51 03/28/20 23 03/29/2023 CBC WITH DIFFE RENTI AL/PL ATELE T neutrophils 59 % not estab. Not Available [facility] ([facility]) [address] [place], [address], 04/01/2023 08:18:51 03/28/20 23 03/29/2023 CBC WITH DIFFE RENTI AL/PL ATELE T lymphs 33 % not estab. Not Available [facility] ([facility]) [address] [place], [address], 04/01/2023 08:18:51 03/28/20 23 03/29/2023 CBC WITH DIFFE RENTI AL/PL ATELE T monocytes 5 % not estab. Not Available [facility] ([facility]) [address] [facility], [place], [address], 04/01/2023 08:18:51 03/28/20 23 03/29/2023 CBC WITH DIFFE RENTI AL/PL ATELE T eos 2 % not estab. Not Available [facility] ([facility]) [address] [facility], [place], [address], 04/01/2023 08:18:51 03/28/20 23 03/29/2023 CBC WITH DIFFE RENTI AL/PL ATELE T basos 1 % not estab. Not Available [facility] ([facility]) [address] [facility], [place], [address], 04/01/2023 08:18:51 03/28/20 23 03/29/2023 CBC WITH DIFFE RENTI AL/PL ATELE T immature cells FLESHING MACHINE OPERATOR Not Available [facility] ([facility]) [address] [place], [address], 04/01/2023 08:18:51 03/28/20 23 03/29/2023 CBC WITH DIFFE RENTI AL/PL ATELE T neutrophils (absolute) 2.6 x10e3 /uL 1.4-7. 0 Not Available [facility] ([facility]) [address] [place], [address], 04/01/2023 08:18:51 03/28/20 23 03/29/2023 CBC WITH DIFFE RENTI AL/PL ATELE T lymphs (absolute) 1.5 x10e3 /uL 0.7-3. 1 Not Available [facility] ([facility]) [address] [place], [address], 04/01/2023 08:18:51 03/28/20 23 03/29/2023 CBC WITH DIFFE RENTI AL/PL ATELE T monocytes(ab solute) 0.2 x10e3 /uL 0.1-0. 9 Not Available [facility] ([facility]) [address] [facility], [place], [address], 04/01/2023 08:18:51 03/28/20 23 03/29/2023 CBC WITH DIFFE RENTI AL/PL ATELE T eos (absolute) 0.1 x10e3 /uL 0.0-0. 4 Not Available [facility] ([facility]) [address] [facility], [place], [address], 04/01/2023 08:18:51 03/28/20 23 03/29/2023 CBC WITH DIFFE RENTI AL/PL ATELE T baso (absolute) 0.0 x10e3 /uL 0.0-0. 2 Not Available [facility] ([facility]) [address] [facility], [place], [address], 04/01/2023 08:18:51 03/28/20 23 03/29/2023 CBC WITH DIFFE RENTI AL/PL ATELE T immature granulocytes 0 % not estab. Not Available [facility] ([facility]) [address] [facility], [place], [address], 04/01/2023 08:18:51 03/28/20 23 03/29/2023 CBC WITH DIFFE RENTI AL/PL ATELE T immature grans (abs) 0.0 x10e3 /uL 0.0-0. 1 Not Available [facility] ([facility]) [address] [place], [address], 04/01/2023 08:18:51 03/28/20 23 03/29/2023 CBC WITH DIFFE RENTI AL/PL ATELE T NRBC FLESHING MACHINE OPERATOR Not Available [facility] ([facility]) [address] [facility], [place], [address], 04/01/2023 08:18:51 03/28/20 23 03/29/2023 CBC WITH DIFFE RENTI AL/PL ATELE T hematology comments: FLESHING MACHINE OPERATOR Not Available [facility] ([facility]) [address] [facility] [place], [address], 04/01/2023 08:18:51 03/28/20 23 03/29/2023 COMP. METAB OLIC PANEL (14) glucose 78 mg/dL 70-99 Not Available [facility] ([facility]) [address] [place] [place], [address], 04/01/2023 08:18:52 03/28/20 23 03/29/2023 COMP. METAB OLIC PANEL (14) BUN 10 mg/dL 6-24 Not Available [facility] ([facility]) [address] [facility] [place], [address], 04/01/2023 08:18:52 03/28/20 23 03/29/2023 COMP. METAB OLIC PANEL (14) creatinine 0.69 mg/dL 0.57-1 .00 Not Available [facility] ([facility]) [address] [place], [address], 04/01/2023 08:18:52 03/28/20 23 03/29/2023 COMP. METAB OLIC PANEL (14) eGFR 102 mL/mi n/1.7 3 >59 Not Available [facility] ([facility]) [address] [place], [address], 04/01/2023 08:18:52 03/28/20 23 03/29/2023 COMP. METAB OLIC PANEL (14) BUN/creatini ne ratio 14 9-23 Not Available [facility] ([facility]) [address] [place], [address], 04/01/2023 08:18:52 03/28/20 23 03/29/2023 COMP. METAB OLIC PANEL (14) sodium 142 mmol/ L 134-14 4 Not Available [facility] ([facility]) [address] [place], [address], 04/01/2023 08:18:52 03/28/20 23 03/29/2023 COMP. METAB OLIC PANEL (14) potassium 4.5 mmol/ L 3.5-5. 2 Not Available [facility] ([facility]) [address] [place], [address], 04/01/2023 08:18:52 03/28/20 23 03/29/2023 COMP. METAB OLIC PANEL (14) chloride 105 mmol/ L 96-106 Not Available [facility] ([facility]) [address] [place], [address], 04/01/2023 08:18:52 03/28/20 23 03/29/2023 COMP. METAB OLIC PANEL (14) carbon dioxide, total 23 mmol/ L 20-29 Not Available [facility] ([facility]) [address] [place], [address], 04/01/2023 08:18:52 03/28/20 23 03/29/2023 COMP. METAB OLIC PANEL (14) calcium 9.6 mg/dL 8.7-10 .2 Not Available [facility] ([facility]) [address] [place], [address], 04/01/2023 08:18:52 03/28/20 23 03/29/2023 COMP. METAB OLIC PANEL (14) protein, total 6.6 g/dL 6.0-8. 5 Not Available [facility] ([facility]) [address] [place], [address], 04/01/2023 08:18:52 03/28/20 23 03/29/2023 COMP. METAB OLIC PANEL (14) albumin 4.2 g/dL 3.8-4. 9 Not Available [facility] ([facility]) [address] [place], [address], 04/01/2023 08:18:52 03/28/20 23 03/29/2023 COMP. METAB OLIC PANEL (14) globulin, total 2.4 g/dL 1.5-4. 5 Not Available [facility] ([facility]) [address] [place], [address], 04/01/2023 08:18:52 03/28/20 23 03/29/2023 COMP. METAB OLIC PANEL (14) A/G ratio 1.8 1.2-2. 2 Not Available [facility] ([facility]) [address] [place], [address], 04/01/2023 08:18:52 03/28/20 23 03/29/2023 COMP. METAB OLIC PANEL (14) bilirubin, total <0.2 mg/dL 0.0-1. 2 Not Available [facility] ([facility]) [address] [place], [address], 04/01/2023 08:18:52 03/28/20 23 03/29/2023 COMP. METAB OLIC PANEL (14) alkaline phosphatase 67 IU/L 44-121 Not Available [facility] ([facility]) [address] [place], [address], 04/01/2023 08:18:52 03/28/20 23 03/29/2023 COMP. METAB OLIC PANEL (14) AST (SGOT) 20 IU/L 0-40 Not Available [facility] ([facility]) [address] [place], [address], 04/01/2023 08:18:52 03/28/20 23 03/29/2023 COMP. METAB OLIC PANEL (14) ALT (SGPT) 11 IU/L 0-32 Not Available [facility] ([facility]) [address] [place], [address], 04/01/2023 08:18:52 03/28/20 23 03/31/2023 RICKE TTSIA L FEVER GROUP IGG/M spotted fever group IgG <1:64 neg:<1 :64 Not Available [facility] ([facility]) [address] [facility], [place], [address], 04/01/2023 08:18:53 03/28/2003/31/2023 RICKE TTSIA L FEVER GROUP IGG/M typhus fever group IgG <1:64 neg:<1 :64 Not Available [facility] ([facility]) [address] [place], [address], 04/01/2023 08:18:53 03/28/2003/31/2023 RICKE TTSIA L FEVER GROUP IGG/M spotted fever group IgM <1:64 neg:<1 :64 Not Available [facility] ([facility]) [address] [facility], [place], [address], 04/01/2023 08:18:53 03/28/2003/31/2023 RICKE TTSIA L FEVER GROUP IGG/M typhus fever group IgM <1:64 neg:<1 :64 Not Available [facility] ([facility]) [address] [place], [address], 04/01/2023 08:18:53 07/12/2007/13/2024 KRISTY C DISEA SE PANEL T-transgluta minase (ttg) IgA <2 U/mL 0-3 Negat jessy 0 - 3 Weak Posit jessy 4 - 10 Posit jessy >10 Tissu e Trans gluta ten e (tTG) has been ident ified as the endom ysial antig en. Studi es have demon str- ated that endom ysial IgA antib odies have over 99% speci ficit y for glute n sensi tive enter opath y. Not Available [facility] ([facility]) [address] [place], [address], 07/16/2024 10:13:21 07/12/2007/13/2024 KRISTY C DISEA SE PANEL immunoglobul in A, qn, serum 154 mg/dL 87-352 normal Not Available [facility] ([facility]) [address] [facility], [place], [address], 07/16/2024 10:13:21 07/12/2007/15/2024 KRISTY C DISEA SE PANEL endomysial antibody IgA Negati ve negati ve Not Available [facility] ([facility]) [address] [facility], [place], [address], 07/16/2024 10:13:21 07/12/2007/13/2024 TSH+F REE T4 TSH 1.970 uIU/m L 0.450- 4.500 normal Not Available [facility] ([facility]) [address] [facility], [place], [address], 07/16/2024 10:13:22 07/12/2007/13/2024 TSH+F REE T4 T4,free(dire ct) 1.38 NG/dL 0.82-1 .77 normal Not Available [facility] ([facility]) [address] [place], [address], 07/16/2024 10:13:22 07/12/2007/13/2024 CBC WITH DIFFE RENTI AL/PL ATELE T WBC 4.4 x10e3 /uL 3.4-10 .8 normal Not Available [facility] ([facility]) [address] [place], [address], 07/16/2024 10:13:24 07/12/2007/13/2024 CBC WITH DIFFE RENTI AL/PL ATELE T RBC 4.72 x10e6 /uL 3.77-5 .28 normal Not Available [facility] ([facility]) [address] [place], [address], 07/16/2024 10:13:24 07/12/2007/13/2024 CBC WITH DIFFE RENTI AL/PL ATELE T hemoglobin 14.1 g/dL 11.1-1 5.9 normal Not Available [facility] ([facility]) [address] [place], [address], 07/16/2024 10:13:24 07/12/2007/13/2024 CBC WITH DIFFE RENTI AL/PL ATELE T hematocrit 44.0 % 34.0-4 6.6 normal Not Available [facility] ([facility]) [address] [facility], [place], [address], 07/16/2024 10:13:24 07/12/2007/13/2024 CBC WITH DIFFE RENTI AL/PL ATELE T MCV 93 fL 79-97 normal Not Available [facility] ([facility]) [address] [facility], [place], [address], 07/16/2024 10:13:24 07/12/2007/13/2024 CBC WITH DIFFE RENTI AL/PL ATELE T MCH 29.9 pg 26.6-3 3.0 normal Not Available [facility] ([facility]) [address] [place], [address], 07/16/2024 10:13:24 07/12/2007/13/2024 CBC WITH DIFFE RENTI AL/PL ATELE T MCHC 32.0 g/dL 31.5-3 5.7 normal Not Available [facility] ([facility]) [address] [place], [address], 07/16/2024 10:13:24 07/12/2007/13/2024 CBC WITH DIFFE RENTI AL/PL ATELE T RDW 13.2 % 11.7-1 5.4 Not Available [facility] ([facility]) [address] [place], [address], 07/16/2024 10:13:24 07/12/2007/13/2024 CBC WITH DIFFE RENTI AL/PL ATELE T platelets 161 x10e3 /uL 150-45 0 normal Not Available [facility] ([facility]) [address] [facility], [place], [address], 07/16/2024 10:13:24 07/12/2007/13/2024 CBC WITH DIFFE RENTI AL/PL ATELE T neutrophils 66 % not estab. normal Not Available [facility] ([facility]) [address] [facility], [place], [address], 07/16/2024 10:13:24 07/12/2007/13/2024 CBC WITH DIFFE RENTI AL/PL ATELE T lymphs 26 % not estab. normal Not Available [facility] ([facility]) [address] [facility], [place], [address], 07/16/2024 10:13:24 07/12/2007/13/2024 CBC WITH DIFFE RENTI AL/PL ATELE T monocytes 5 % not estab. normal Not Available [facility] ([facility]) [address] [facility], [place], [address], 07/16/2024 10:13:24 07/12/2007/13/2024 CBC WITH DIFFE RENTI AL/PL ATELE T eos 2 % not estab. normal Not Available [facility] ([facility]) [address] [facility], [place], [address], 07/16/2024 10:13:24 07/12/2007/13/2024 CBC WITH DIFFE RENTI AL/PL ATELE T basos 1 % not estab. normal Not Available [facility] ([facility]) [address] [facility], [place], [address], 07/16/2024 10:13:24 07/12/2007/13/2024 CBC WITH DIFFE RENTI AL/PL ATELE T immature cells FLESHING MACHINE OPERATOR Not Available [facility] ([facility]) [address] [facility], [place], [address], 07/16/2024 10:13:24 07/12/2007/13/2024 CBC WITH DIFFE RENTI AL/PL ATELE T neutrophils (absolute) 2.9 x10e3 /uL 1.4-7. 0 normal Not Available [facility] ([facility]) [address] [facility], [place], [address], 07/16/2024 10:13:24 07/12/2007/13/2024 CBC WITH DIFFE RENTI AL/PL ATELE T lymphs (absolute) 1.2 x10e3 /uL 0.7-3. 1 normal Not Available [facility] ([facility]) [address] [facility], [place], [address], 07/16/2024 10:13:24 07/12/2007/13/2024 CBC WITH DIFFE RENTI AL/PL ATELE T monocytes(ab solute) 0.2 x10e3 /uL 0.1-0. 9 normal Not Available [facility] ([facility]) [address] [facility], [place], [address], 07/16/2024 10:13:24 07/12/2007/13/2024 CBC WITH DIFFE RENTI AL/PL ATELE T eos (absolute) 0.1 x10e3 /uL 0.0-0. 4 normal Not Available [facility] ([facility]) [address] [facility], [place], [address], 07/16/2024 10:13:24 07/12/2007/13/2024 CBC WITH DIFFE RENTI AL/PL ATELE T baso (absolute) 0.0 x10e3 /uL 0.0-0. 2 normal Not Available [facility] ([facility]) [address] [place], [address], 07/16/2024 10:13:24 07/12/2007/13/2024 CBC WITH DIFFE RENTI AL/PL ATELE T immature granulocytes 0 % not estab. Not Available [facility] ([facility]) [address] [facility], [place], [address], 07/16/2024 10:13:24 07/12/2007/13/2024 CBC WITH DIFFE RENTI AL/PL ATELE T immature grans (abs) 0.0 x10e3 /uL 0.0-0. 1 Not Available [facility] ([facility]) [address] [facility], [place], [address], 07/16/2024 10:13:24 07/12/2007/13/2024 CBC WITH DIFFE RENTI AL/PL ATELE T NRBC FLESHING MACHINE OPERATOR Not Available [facility] ([facility]) [address] [facility], [place], [address], 07/16/2024 10:13:24 07/12/2007/13/2024 CBC WITH DIFFE RENTI AL/PL ATELE T hematology comments: FLESHING MACHINE OPERATOR Not Available [facility] ([facility]) [address] [facility], [place], [address], 07/16/2024 10:13:24 07/12/2007/13/2024 COMP. METAB OLIC PANEL (14) glucose 94 mg/dL 70-99 normal Not Available [facility] ([facility]) [address] [facility], [place], [address], 07/16/2024 10:13:25 07/12/2007/13/2024 COMP. METAB OLIC PANEL (14) BUN 13 mg/dL 6-24 normal Not Available [facility] ([facility]) [address] [facility], [place], [address], 07/16/2024 10:13:25 07/12/2007/13/2024 COMP. METAB OLIC PANEL (14) creatinine 0.71 mg/dL 0.57-1 .00 normal Not Available [facility] ([facility]) [address] [facility], [place], [address], 07/16/2024 10:13:25 07/12/20 24 07/13/2024 COMP. METAB OLIC PANEL (14) eGFR 99 mL/mi n/1.7 3 >59 normal Not Available [facility] ([facility]) [address] [facility], [place], [address], 07/16/2024 10:13:25 07/12/20 24 07/13/2024 COMP. METAB OLIC PANEL (14) BUN/creatini ne ratio 18 9-23 normal Not Available [facility] ([facility]) [address] [facility], [place], [address], 07/16/2024 10:13:25 07/12/20 24 07/13/2024 COMP. METAB OLIC PANEL (14) sodium 142 mmol/ L 134-14 4 normal Not Available [facility] ([facility]) [address] [facility], [place], [address], 07/16/2024 10:13:25 07/12/20 24 07/13/2024 COMP. METAB OLIC PANEL (14) potassium 4.3 mmol/ L 3.5-5. 2 normal Not Available [facility] ([facility]) [address] [facility], [place], [address], 07/16/2024 10:13:25 07/12/20 24 07/13/2024 COMP. METAB OLIC PANEL (14) chloride 106 mmol/ L 96-106 normal Not Available [facility] ([facility]) [address] [facility], [place], [address], 07/16/2024 10:13:25 07/12/20 24 07/13/2024 COMP. METAB OLIC PANEL (14) carbon dioxide, total 22 mmol/ L 20-29 normal Not Available [facility] ([facility]) [address] [facility], [place], [address], 07/16/2024 10:13:25 07/12/20 24 07/13/2024 COMP. METAB OLIC PANEL (14) calcium 9.5 mg/dL 8.7-10 .2 normal Not Available [facility] ([facility]) [address] [facility], [place], [address], 07/16/2024 10:13:25 07/12/20 24 07/13/2024 COMP. METAB OLIC PANEL (14) protein, total 7.0 g/dL 6.0-8. 5 normal Not Available [facility] ([facility]) [address] [place], [address], 07/16/2024 10:13:25 07/12/2007/13/2024 COMP. METAB OLIC PANEL (14) albumin 4.4 g/dL 3.8-4. 9 normal Not Available [facility] ([facility]) [address] [place], [address], 07/16/2024 10:13:25 07/12/2007/13/2024 COMP. METAB OLIC PANEL (14) globulin, total 2.6 g/dL 1.5-4. 5 Not Available [facility] ([facility]) [address] [place], [address], 07/16/2024 10:13:25 07/12/2007/13/2024 COMP. METAB OLIC PANEL (14) bilirubin, total 0.3 mg/dL 0.0-1. 2 normal Not Available [facility] ([facility]) [address] [place], [address], 07/16/2024 10:13:25 07/12/2007/13/2024 COMP. METAB OLIC PANEL (14) alkaline phosphatase 67 IU/L 44-121 normal Not Available [facility] ([facility]) [address] [place], [address], 07/16/2024 10:13:25 07/12/20 24 07/13/2024 COMP. METAB OLIC PANEL (14) AST (SGOT) 14 IU/L 0-40 normal Not Available [facility] ([facility]) [address] [place], [address], 07/16/2024 10:13:25 07/12/20 24 07/13/2024 COMP. METAB OLIC PANEL (14) ALT (SGPT) 11 IU/L 0-32 normal Not Available [facility] ([facility]) [address] [facility], [place], [address], 07/16/2024 10:13:25 07/12/20 24 07/13/2024 IRON AND TIBC iron bind.cap.(TI BC) 259 ug/dL 250-45 0 normal Not Available [facility] ([facility]) [address] [facility], [place], [address], 07/16/2024 10:13:27 07/12/20 24 07/13/2024 IRON AND TIBC UIBC 162 ug/dL 131-42 5 normal Not Available [facility] ([facility]) [address] [facility], [place], [address], 07/16/2024 10:13:27 07/12/20 24 07/13/2024 IRON AND TIBC iron 97 ug/dL 27-159 normal Not Available [facility] ([facility]) [address] [facility], [place], [address], 07/16/2024 10:13:27 07/12/20 24 07/13/2024 IRON AND TIBC iron saturation 37 % 15-55 normal Not Available [facility] ([facility]) [address] [place], [address], 07/16/2024 10:13:27 07/12/20 24 07/13/2024 VITAM IN B12 AND FOLAT E vitamin B12 366 pg/mL 232-12 45 normal Not Available [facility] ([facility]) [address] [place], [address], 07/16/2024 10:13:28 07/12/20 24 07/13/2024 VITAM IN B12 AND FOLAT E folate (folic acid), serum 17.9 NG/mL >3.0 normal A serum folat e danielle ntrat ion of less than 3.1 ng/mL is consi dered to repre sent clini apolinar defic iency . Not Available [facility] ([facility]) [address] [facility], [place], [address], 07/16/2024 10:13:28 07/12/20 24 07/13/2024 HEMOG LOBIN A1C hemoglobin A1C 5.1 % 4.8-5. 6 normal Predi abete s: 5.7 - 6.4 Diabe mani: >6.4 Glyce yoel contr ol for adult s with diabe mani: <7.0 Not Available [facility] ([facility]) [address] [facility], [place], [address], 07/16/2024 10:13:29 07/12/20 24 07/13/2024 VITAM IN D, 25-HY DROXY vitamin D, 25-hydroxy 28.6 NG/mL 30.0-1 00.0 below low normal Vitam in D defic iency has been defin ed by the Insti tute of Medic ine and an Endoc rine Socie ty pract ice guide line as a level of serum 25-OH vitam in D less than 20 ng/mL (1,2) . The Endoc rine Socie ty went on to furth er defin e vitam in D insuf ficie ncy as a level betwe en 21 and 29 ng/mL (2). 1. IOM (Inst itute of Medic ine). 2010. Dieta ry refer ence barrera es for calci um and D. Griselda becerril [place]: The Natio nal [facility] Press . 2. Isreal lechuga MF, Erin hedrick [place], Jodie off-F errar i EDWARDS, et al. Evalu ation , treat ment, and preve ntion of vitam in D defic iency : an Endoc rine Socie ty clini apolinar pract ice guide line. JCEM. 2010; 96(7) :1911 -30. Not Available [facility] ([facility]) [address] [facility], [place], [address], 07/16/2024 10:13:31 07/12/2007/13/2024 ERNESTO W/RFX TO ALL IF POSIT JESSY ERNESTO direct Negati ve negati ve Not Available [facility] ([facility]) [address] [facility], [place], [address], 07/16/2024 10:13:32 07/12/2007/12/2024 FOOD ALLER GY PROFI LE class description Commen t Level s of Speci fic IgE Class Descr iptio n of Class ----- ----- ----- ----- ----- -- ----- ----- ----- ----- ----- < 0.10 0 Negat jessy 0.10 - 0.31 0/I Equiv ocal/ Low 0.32 - 0.55 I Low 0.56 - 1.40 II Moder ate 1.41 - 3.90 III High 3.91 - 19.00 IV Very High 19.01 - 100.0 0 V Very High >100. 00 Very High Not Available [facility] ([facility]) [address] [facility], [place], [address], 07/16/2024 10:13:33 07/12/20 24 07/16/2024 FOOD ALLER GY PROFI LE K964-GvE egg white <0.10 kU/L class 0 Not Available [facility] ([facility]) [address] [facility], [place], [address], 07/16/2024 10:13:33 07/12/20 24 07/16/2024 FOOD ALLER GY PROFI LE B295-DyU peanut <0.10 kU/L class 0 Not Available [facility] ([facility]) [address] [place], [address], 07/16/2024 10:13:33 07/12/20 24 07/16/2024 FOOD ALLER GY PROFI LE I248-CkS soybean <0.10 kU/L class 0 Not Available [facility] ([facility]) [address] [facility], [place], [address], 07/16/2024 10:13:33 07/12/20 24 07/16/2024 FOOD ALLER GY PROFI LE I403-CfN milk <0.10 kU/L class 0 Not Available [facility] ([facility]) [address] [facility], [place], [address], 07/16/2024 10:13:33 07/12/20 24 07/16/2024 FOOD ALLER GY PROFI LE B791-CsA clam <0.10 kU/L class 0 Not Available [facility] ([facility]) [address] [place], [address], 07/16/2024 10:13:33 07/12/20 24 07/16/2024 FOOD ALLER GY PROFI LE R418-IsT shrimp <0.10 kU/L class 0 Not Available [facility] ([facility]) [address] [place], [address], 07/16/2024 10:13:33 07/12/20 24 07/16/2024 FOOD ALLER GY PROFI LE I855-OtD walnut <0.10 kU/L class 0 Not Available [facility] ([facility]) [address] [place], [address], 07/16/2024 10:13:33 07/12/20 24 07/16/2024 FOOD ALLER GY PROFI LE F727-UuY codfish <0.10 kU/L class 0 Not Available [facility] ([facility]) [address] [place], [address], 07/16/2024 10:13:33 07/12/20 24 07/16/2024 FOOD ALLER GY PROFI LE E650-NqF scallop <0.10 kU/L class 0 Not Available [facility] ([facility]) [address] [facility], [place], [address], 07/16/2024 10:13:33 07/12/20 24 07/16/2024 FOOD ALLER GY PROFI LE P662-EjH wheat <0.10 kU/L class 0 Not Available [facility] ([facility]) [address] [facility], [place], [address], 07/16/2024 10:13:33 07/12/20 24 07/16/2024 FOOD ALLER GY PROFI LE L849-MnX corn <0.10 kU/L class 0 Not Available [facility] ([facility]) [address] [facility], [place], [address], 07/16/2024 10:13:33 07/12/2007/16/2024 FOOD ALLER GY PROFI LE A953-CbP sesame seed <0.10 kU/L class 0 Not Available [facility] ([facility]) [address] [facility], [place], [address], 07/16/2024 10:13:33 01/31/20 23 01/26/2023 XR, chest No observ ation record ed. [facility] (Central Scheduling) [address] [place], [address], 02/03/2023 08:58:44 01/31/20 23 01/26/2023 CT, abdom en + pelvi s, w/o contr ast No observ ation record ed. [facility] (Central Scheduling) [address] [place], [address], 02/03/2023 08:57:55 07/25/20 23 07/25/2023 US, abdom en, limit ed No observ ation record ed. patito [facility] (Central Scheduling) [address] [place], [address], 08/03/2023 11:07:23 07/15/20 24 07/12/2024 elect catalina zhang am No observ ation record ed. [facility] Not Available 2023 09:54:43 09/28/20 24 09/28/2024 XR, chest No observ ation record ed. jpully [facility] (Central Scheduling) [address] [place], [address], 09/30/2024 13:04:31 09/28/20 24 09/28/2024 CT, abdom en + pelvi s, w/o contr ast No observ ation record ed. [facility] (Central Scheduling) [address] [place], [address], 09/30/2024 12:29:16 03/29/20 25 11/29/2024 - scn dig breas t tomos yn cristel [facility] Med[facility] l [facility] Phys: Bianca fuentes LEAD RADIOLOGIC TECHNOLOGIST-C, [place] [address] : 1964 Age: 59 Sex: F Acct: [id number] Loc: G.MAMM PHONE #: Exam Date: 2024 Status : DEP CLI FAX #: Rad# [id number] Unit# [id number] Admit Date: 2024 EXAMS: CPT CODE: [id number] SCN DIG BREAST TOMOSY N CRISTEL 04788 BILATE RAL DIGITA L SCREEN ING MAMMOG QUETA WITH CAD AND 3 D Tomosy nthesi s Person al histor y of Breast Cancer : Multip le prior studie s, the most recent of which is 021 Family histor y of Breast Cancer : None Compla ints: None Compar maite: Multip le prior studie s. TECHNI QUE: Bilate ral digita l mammog cy and CAD screen ing were perfor med by . 3-D Tomosy nthesi s imagin g was also perfor med. Pacema ker degrad es imagin g of the right breast . FINDIN GS: These images demons trate a type III breast parenc hymal patter n indica ting the breast s are hetero geneou sly dense which may lower the sensit ivity of mammog cy. No worris ome lesion s are identi fied in either breast . IMPRES ESTER: Negati ve. Recomm end annual screen ing, regula r self breast examin ation and regula r clinic al breast exam. (CAT1) - CATEGO RY 1, NEGATI VE (1 YR) -1 YEAR -In the patien t with a palpab le abnorm ality, unexpl ained by breast imagin g, the palpab le abnorm ality should be manage d on a clinic al basis by the attend ing clinic anca. -Breas t imagin g as a false negati ve rate of approx imatel y 15%. -Patie nt was notifi ed by mail of the result s of this examin ation. Patien t may be called if furthe r workup is indica chinmay. -The patien t's inform ation was entere d into a remind er system with a target due date for the next mammog queta. -This mammog queta was review ed by a radiol ogist and CAD. This report is genera chinmay using voice recogn ition comput er softwa re. Inadve rtent errors may have occurr ed while dictat ing report . Common sense approa ch is apprec iated and do not hesita te to call for clarif icatio n when necess corie. PAGE 1 Signed Report (ABHISHEK NUED) [facility] Name: [facility] [address] [facility] l [facility] Phys: Bianca FLETCHER, Ivory Lebron [facility] [place] [address] : 1964 Age: 59 Sex: F Acct: [id number] Loc: G.MAMM PHONE #: Exam Date: 2024 Status : DEP CLI FAX #: [phone] Rad# [id number] Unit# [id number] Admit Date: 2024 EXAMS: CPT CODE: [id number] SCN DIG BREAST TOMOSY N CRISTEL 81599 Electr onical ly Signed by Norm Foster on 2024 at 0830 Report ed and signed by: JOYCELYN Foster M.D. CC: Ivory UptonC Dictat ed Date/T rosetta: 2024 (829) Techno logist : JENNIF ER SARA Transc ribed Date/T rosetta: 2024 (829) Transc riptio nist: DR.HAR BILLY Dyson onic Signat ure Date/T rosetta: 2024 (829) Printe d Date/T rosetta: 2024 (543) BATCH NO: N/A PAGE 2 Signed Report CC'ed Logic: Orderi ng Provid er: BIANCA CONCEPCION Attend ing Provid er: BIANCA CONCEPCION Referr ing Provid er: BIANCA CONCEPCION Consul ting Provid er: BIANCA CONCEPCION [address] , [place], [address], 03/31/2025 11:19:56 Result Notes None recorded. Problems Name Problem SNOMED Code Status Onset Date Resolution Date Notes Provider Name and Address Organization Details Recorded Time Coronary arteriosc lerosis in [place] artery 84619270820 07 Active 2017 Angelica Payton MD [address], [place], [address] , [place] - [facility] 08:32:31 Ex-smoker 1101591 Active 2017 Angelica Payton MD [address], [place], [address] , [place] - [facility] 8 08:52:02 Myocardia l infarctio n 85136253 Completed 201711/24/2017 Kitty Baptiste APRN [address], [place], [address] , [place] - [facility] 8 12:52:12 Irritable bowel syndrome 06524408 Active 2017 Kitty Baptiste APRN [address], [place], [address] , [place] - [facility] 8 16:04:10 History of placement of stent for coronary artery disease 385479448 Active 2017 Monserrat Escudero MD [address], [place], [address] , [place] [facility] 8 09:53:35 Vitamin D deficienc y 05961134 Active 2017 Monserrat Escudero MD [address], [place], [address] , [place] [facility] 8 09:53:37 Suspected COVID-19 018024314 Completed 201905/31/2021 Kitty Baptiste APRN [address], [place], [place], [address] , [place] [facility] 1 13:11:05 Lesion of liver 896792944 Active 2020 Ali Samanta null, [place] - [facility] 1 15:32:12 Chronic obstructi ve pulmonary disease 57174388 Active 2020 Ali Samanta null, [place] - [facility] 1 18:28:22 Pain of multiple joints 50990794 Active 2022 Ivory Sam, LINEN CLERK [address], [place], [address] , [place] [facility] 3 14:06:20 Dysuria 80244602 Active 2022 Ivory Sam, SEBASTIÁN [address], [place], [address] , [place] [facility] 3 14:09:59 Paradise spotted fever 527788300 Active 2022 Daria Pham PA-C [address], [place], [address] , [place] [facility] 3 11:20:25 Ulcerativ e colitis 64594527 Active Beth Arturo null, [place] - [facility] 7 15:56:04 Arthritis 5201729 Active Beth Arturo [place], [place] - [facility] 7 15:56:13 Diverticu litis 813185816 Active Beth Arturo null, [place] [facility] 15:56:22 Hypothyro idism 00599086 Active Beth Arturo null, [place] - [facility] 7 15:57:18 Fatigue 67658572 Active 2023 Ivory Sam, LINEN CLERK [address], [place], [address] , [place] [facility] 4 09:53:50 Chronic pancreati tis 614592584 Active 2023 Ivory Donna, LINEN CLERK [address], [place], [address] , [place] [facility] 4 09:57:38 Cholelith iasis with obstructi on 70857205 Active 2023 Ivory Donna, LINEN CLERK [address], [place], [address] , [place] [facility] 4 09:02:41 Nausea and vomiting 29630425 Active 2024 Ivory Donna, LINEN CLERK [address], [place], [address] , [place] [facility] 5 14:32:32 Epigastri c pain 54668280 Active 2024 Ivory Donna, LINEN CLERK [address], [place], [address] , [place] [facility] 5 14:33:31 Problem Notes Documentation Provider Name and Address Organization Details Recorded Time Pain Management Consult Note : [facility] History Physical - Adult REPORT #: [id number] REPORT STATUS: Signed DATE: 07/30/24 TIME: 2111 PATIENT: ROSALEE MORA UNIT #: [id number] ROOM/BED: AGE: 59 SEX: F ATTEND: ALEXANDRIA REDDY APRN ADM AUTHOR: ALEXANDRIA REDDY APRN * ALL edits or amendments must be made on the electronic/computer document * History of Present Illness Chief Complaint: UPPER LEFT CHEST PAIN Nurse Comments: HAS CHRONIC PANCREATITIS Temperature: 96.4 Pulse: 106 Blood Pressure: 144/76 Respirations: 16 Pain Scale: 8 Pain location(s): UPPER LEFT CHEST UNDER RIGHT RIB Pain Description: DULL ACHING SHARP BURNING Pain Frequency: INTERMITTENT Relief Measures: LYING DOWN REST ICE HEAT MEDICATION Pain Radiate: YES LUE/RLE Weakness: YES BLE Increases Pain: SITTING,STANDING,WALKING Reduces Pain: LYING,REST,ICE,HEAT,MEDS Do you take Blood Thinners: Yes Which one: ASA, PLAVIX Allergies: Coded Allergies: evolocumab (From REPATHA SURECLICK) (Severe, ANAPHYLAXIS 07/30/24) Ndnhcmy-EYW-ByA Reductase Inhibitor (muscle aches 07/30/24) peanut (chest pain 07/30/24) Uncoded Allergies: contrast dye (Severe, swelling 07/30/24) Bowel or Bladder Loss: YES- explain in comment Problem List SAFE-T Triage Screening: Yes Office Note Office Note Subjective: The patient, Rosalee Alegre, presents with a chief complaint of pain in her left upper chest and under the right rib, which began in June of the previous year. She describes the pain as a burning sensation, accompanied by redness on her skin, calderon to a blush. Rosalee notes that the pain worsens during the fall weather and improves in the summer. She has a significant medical history of several heart attacks but clarifies that this pain differs from her previous experiences. Rosalee has been living with chronic pancreatitis for two years, a condition that emerged post-COVID infection. Her medical history is also notable for stomach issues, for which she has undergone diagnostic ultrasounds and had a stent placed in her bile duct. Additionally, she suffers from irritable bowel syndrome (IBS), which exacerbates her symptoms. For pain management, Rosalee is currently taking tramadol 25 mg twice daily as needed. She reports some relief from this medication but has avoided trying others such as gabapentin, Lyrica, or pregabalin due to concerns about potential stomach side effects. Rosalee has also been diagnosed with postural orthostatic tachycardia syndrome (POTS), manifesting as dizziness, anxiety, and visual disturbances. Furthermore, Rosalee experiences headaches and migraines that stem from her neck , accompanied by muscle tightness. She has not pursued trigger point injections for this issue. It has been recommended that she take pain medication on a regular basis instead of waiting for severe pain episodes. Fernando was reviewed today and is appropriate. Objective: Physical exam General appearance: Alert and oriented x3, awake, no acute distress. Skin appearance on abdomen with yu angiomas noted, mild erythema Psych: Mood and affect appropriate. Speech fluent, words are clear. Thought process is coherent and logical with appropriate insight. No evidence of impairment or sedation. Head: Normocephalic Neck: tenderness mid spine, muscle tightness in R and L scalenes and trapezius. Limited ROM Musculoskeletal: Good ROM all extremities. Pain in mid upper abdominal area, upper L chest. Tender to touch Motor Strength: Biceps 5/5, triceps 5/5, brachioradialis 5/5 SL test: Neg Bhupinder's test: Neg Patient Reports - Skin: Presents with a burning sensation and redness described as like a blush , observed on the chest and occasionally on the back. - Neurological: The patient reports dizziness, visual disturbances including squiggly lines in vision, and weakness, all associated with Postural Orthostatic Tachycardia Syndrome (POTS). - Musculoskeletal: Tightness in the neck reported, which correlates with headaches and migraines. - Gastrointestinal: Chronic pancreatitis and Irritable Bowel Syndrome (IBS) noted. History includes stent placement in the bile duct and endoscopic intervention into the pancreas. Diagnostic Test Results and Labs: - Cardiac Function: Ejection fraction reported as 15% from the previous year, indicating severe left ventricular dysfunction at that time, numbers have increased to 40s now Assessment Plan: 1. Chronic abdominal Pain - Continue tramadol 25 mg TID for 1 week, then reassess - Consider adding Lyrica if pain persists after 1 month - Use pain cream with anti-inflammatories for topical relief 2. Chronic Pancreatitis - Continue monitoring and managing symptoms - History of stent placement in bile duct and pancreas 3. Irritable Bowel Syndrome (IBS) - Continue current management strategies - Monitor for symptom changes 4. Postural Orthostatic Tachycardia Syndrome (POTS) - Monitor heart rate and symptoms - Consider adding beta-ivone if symptoms worsen 5. Migraines and Neck Pain - Consider trigger point injections if pain persists/worsens 6. Anxiety - Monitor symptoms - Consider alternative treatments if anxiety worsens Follow-up: - Schedule 1 month follow-up - Reassess pain management and overall health status - Adjust treatment plan based on response to increased tramadol and pain cream NILO SCORE(Percentage): 68 Current SUPERVISOR MIXING: Y Office Procedure -- OFFICE PROCEDURE -- -- OFFICE PROCEDURE -- Post Procedure Post Procedure at [address] [facility] #: [id number] END OF REPORT CC'ed Logic: Attending Provider: BRARY IBRAHIM Referring Provider: DONNA CONCEPCION Consulting Provider: DONNA Sam APRN [address], [place], [address], [place] - [facility] 07/31/2024 08:40:23 Pain Management Consult Note : [facility] History Physical - Adult REPORT #: [id number] REPORT STATUS: Signed DATE: 08/27/24 TIME: 910 PATIENT: ROSALEE MORA UNIT #: [id number] ROOM/BED: AGE: 59 SEX: F ATTEND: ALEXANDRIA REDDY APRN ADM AUTHOR: ALEXANDRIA REDDY APRN * ALL edits or amendments must be made on the electronic/computer document * History of Present Illness Reason for Visit: Routine Follow-Up Chief Complaint: UPPER CHEST PAIN Nurse Comments: CAN'T TAKE THE TRAMADOL Temperature: 96.6 Pulse: 94 Blood Pressure: 146/80 Respirations: 16 Pain Scale: 6 Pain location(s): UPPER CHEST PAIN UNDER RIGHT RIB Pain Description: ACHING SHARP Pain Frequency: FREQUENT Relief Measures: ICE Pain Radiate: YES LUE Weakness: YES LUE Increases Pain: STANDING, WALKING Reduces Pain: ICE, MEDS Pain Level In The Last Month: 8 Do you take Blood Thinners: Yes Which one: ASA, PLAVIX Allergies: Coded Allergies: evolocumab (From REPATHA SURECLICK) (Severe, ANAPHYLAXIS 07/30/24) Cdxsqdu-VVK-NeS Reductase Inhibitor (muscle aches 07/30/24) peanut (chest pain 07/30/24) Uncoded Allergies: contrast dye (Severe, swelling 07/30/24) Bowel or Bladder Loss: NO Problem List Currently Experiencing Issues: No Medical History changes since last visit: No Social History changes since last visit: No SAFE-T Triage Screening: No Office Note Office Note Subjective: The patient is here to follow up chronic pancreatitis, cervicalgia, abdominal pain. The patient presents with a history of difficulty tolerating oral medications, including tramadol and gabapentin, due to a delicate stomach and concerns about kidney and liver function. She reports that tramadol helped with her pain but caused extreme pain in her kidney area. The patient has tried liquid Tylenol, which provides some relief, but she cannot take it long-term due to stomach issues. She also experiences burning pain on her skin, which she describes as feeling like someone has lit a torch and set it on her skin. The patient has a history of chronic pancreatitis and has had her gallbladder removed, with a stent placed in the bile duct and the sphincter clipped and opened up. She continues to experience pain in the area of her pancreas and has been diagnosed with irritable bowel syndrome (IBS) by her it service continuity supervisor, Dr. Harp at [facility]. The patient is interested in trying Lyrica in liquid form or other alternative routes of administration, such as suppositories, to bypass her gut and avoid kidney and liver issues. She is seeking alternative pain management options that will not exacerbate her existing gastrointestinal and organ function concerns. She is unable to take pain medications and allergic to so many medications. She has had autoimmune testing in the past and allergy testing. She states her sisters and mother are like this as well. She is also having issues with her L great toe stating she thinks she has covid toe as it's been red, peeling, and discolored under the nail since she had covid. Fernando was reviewed today and is appropriate. Objective: Physical Examination: General appearance: Alert and oriented x3, awake, no acute distress. Chronic pain reported, particularly severe in the pancreas/abdomen. Psych: Mood and affect appropriate. Speech fluent, words are clear. Thought process is coherent and logical with appropriate insight. No evidence of impairment or sedation. Head: Normocephalic Neck: Tender to touch, tightness noted in scalenes and trapezius muscles bilaterally, L>R Skin: Noted erythema and burning sensation on the knee, described as evans like fire. Musculoskeletal: Good ROM BLE. BUE WNL ROM. Pain in L upper chest and R-mid upper abdomen. L great toe with erythema and possible fungus under nail. Motor Strength: Biceps 5/5, triceps 5/5, brachioradialis 5/5 Gait: WNL Diagnostic Test Results and Labs: EGD, ERCP, and colonoscopy performed: Identified chronic pancreatitis and IBS. Surgical history: Includes gallbladder removal, stent placement in the bile duct , and sphincterotomy to address pancreatic issues. Assessment Plan: 1. Chronic pain due to pancreatitis and IBS, Cervicalgia - Discontinue tramadol due to adverse (oral lesions and abdominal pain) - Attempt pregabalin (Lyrica) in liquid form if available; send prescription to [facility] - Tylenol with codeine elixir 2.5-5mg BID - Continue using Children's Liquid Tylenol as needed for pain relief - Obtain records from Dr. Magali Harp at [facility] - Consider trigger point for neck pain 2. Skin irritation and burning sensation - Redo compound cream prescription and ensure patient receives it - Monitor response to compound cream and adjust treatment as needed 3. Gastrointestinal issues (chronic pancreatitis, IBS) - Continue care under Dr. Magali Harp at [facility] - Ensure patient has food in stomach when taking liquid medications to minimize gastrointestinal side effects 4. Podiatry referral - Refer patient to Dr. Vasquez for podiatry evaluation and treatment 5. Follow-up - Schedule follow-up appointment in one month to assess response to treatment and make necessary adjustments NILO SCORE(Percentage): 50 Current SUPERVISOR MIXING: Y Office Procedure -- OFFICE PROCEDURE -- -- OFFICE PROCEDURE -- Post Procedure Post Procedure at 0924 RPT #: [id number] END OF REPORT CC'ed Logic: Attending Provider: BARRY IBRAHIM Referring Provider: DONNA CONCEPCION Consulting Provider: DONNA shea [place] - [facility] 08/27/2024 11:26:31 Procedures Surgical History Date Name Laterality Status Provider Name and Address Organization Details Recorded Time 09/30/20 Medication Reconcilliation completed Shayna Vallecillo [place] - [facility] 09/30/2024 08:50:00 07/12/20 24 Medication Reconcilliation completed Gutierrez Thomas [place] - [facility] 07/12/2024 09:15:34 02/04/20 23 Medication Reconcilliation completed Chiquis Looney [place] - [facility] 02/02/2023 08:30:50 01/20/20 23 Pacemaker Placement completed Chiquis Looney [place] [facility] 02/03/2023 09:22:40 02/26/20 22 Medication Reconcilliation completed Lilo Lozoya [place] - [facility] 02/25/2022 15:08:31 08/03/20 21 Date of Last Colonoscopy completed Yana Kerr [place] - [facility] 03/28/2023 10:54:12 05/31/20 21 Date of Last Pap Smear completed Kitty Baptiste APRN [address], [place], [address], [place] - [facility] 05/31/2021 13:43:12 04/15/20 21 Date of Last Mammogram completed Kitty Baptiste APRN [address], [place], [address], [place] - [facility] 05/31/2021 13:43:31 04/15/20 21 Most Recent Mammogram completed Kitty Baptiste APRN [address], [place], [address], [place] - [facility] 05/31/2021 13:43:54 11/27/19 21 Diastolic B/P greater than or equal to 90 mm Hg completed Carmelita Omer [place] - [facility] 11/27/2020 10:59:49 11/27/19 21 Systolic B/P greater than or equal to 140 mm Hg completed Carmelita Omer [place] [facility] 11/27/2020 10:59:44 10/16/19 21 Systolic B/P less than 130 mm Hg completed Gillian Grant [place] [facility] 10/16/2020 13:57:52 10/16/19 21 Diastolic B/P 80-89 mm Hg completed Gillian Grant [place] [facility] 10/16/2020 13:57:55 08/18/20 20 Systolic B/P less than 130 mm Hg completed Carmelita Omer [place] [facility] 08/18/2020 10:36:14 08/18/20 20 Diastolic B/P 80-89 mm Hg completed Carmelita Omer [place] [facility] 08/18/2020 10:36:16 07/07/20 20 Systolic B/P less than 130 mm Hg completed Carmelita Omer [place] [facility] 07/07/2020 14:29:35 07/07/20 20 Diastolic B/P 80-89 mm Hg completed Carmelita Omer [place] [facility] 07/07/2020 14:29:39 12/12/19 20 Systolic B/P less than 130 mm Hg completed Carmelita Omer [place] [facility] 12/12/2019 15:38:25 12/12/19 20 Diastolic B/P less than 80 mm Hg completed Carmelita Omer [place] [facility] 12/12/2019 15:38:28 11/04/19 20 Medication Reconcilliation cancelled Carmelita Omer [place] [facility] 11/04/2019 14:48:23 10/31/19 20 Medication Reconcilliation completed Beth Arturo [place] [facility] 10/31/2019 15:06:35 08/22/20 19 cardiac catheterization completed Beth Arturo [place] [facility] 08/27/2019 16:10:34 11/24/19 18 Cardiac Cath completed Angelica Payton MD [address], [place], [address] - [facility] 12/29/2017 08:27:37 10/09/18 93 Tubal Ligation completed Chiquis Looney [place] - [facility] 02/03/2023 09:21:46 10/09/18 83 Appendectomy completed Chiquis Looney [place] [facility] 02/03/2023 09:21:46 Dilation and Curettage, suction completed Beth Arturo [place] [facility] 10/19/2016 15:59:02 Egd esophagogastrc fndoplsty completed Alisson Smith [place] [facility] 01/31/2018 15:12:18 Tubal Ligation completed Beth Arturo [place] [facility] 10/19/2016 15:59:14 Imaging Results None recorded. Procedure Notes None recorded. Medical Equipment None Reported. Allergies Allergen ID Allergen Name Allergen Category Reaction Reaction Severity Criticality Documentation Date Start Date Code Code System Note Provider Name and Address Organization Details Recorded Time 838800 Repatha medicatio n Not available Not available Not available 08/18/2020 45211 96 RxNorm ANJEL Av[place] - [facility] 0 11:07:29 [id number] Product containin g penicilli n (product) medicatio n Not available Not available Not available 05/19/2021 82398 8001 SNOMED Johanna shea, ANJEL - [facility] 1 10:21:56 73813 lisinopri l medicatio n Not available Not available Not available 07/15/20162012 04903 RxNorm Not Available [facility] 6 08:18:25 78748 Iodinated contrast media (substanc e) medicatio n Not available Not available Not available 07/15/20162012 64974 2004 SNOMED Not Available [facility] 6 08:18:26 81187 metoprolo l tartrate medicatio n Not available Not available Not available 07/15/20162012 90122 1 RxNorm Not Available [facility] 6 08:18:26 96198 Levaquin medicatio n Not available Not available Not available 07/15/20162012 15590 2 RxNorm Not Available [facility] 6 08:18:26 08309 Macrobid medicatio n Not available Not available Not available 07/15/20162013 72302 1 RxNorm Not Available [facility] 6 08:18:26 55713 Monistat medicatio n chest pain Not available Not available 03/20/2018 34203 9 RxNorm Fatoumata Xiong [facility] [place] [facility] 8 14:46:19 Medications Name Sig Start Date Stop Date Status Note LastModified by Organization Details LastModified Time fluconazo le 100 mg tablet Take 1 tablet every day by oral route. 10/16 completed Not Available Not Available Not Available atorvasta tin 40 mg tablet TAKE 1 TABLET BY MOUTH ONCE DAILY active Not Available Not Available No t Available buspirone 5 mg tablet Take 1 tablet twice a day by oral route as directed for 30 days. 12/15 completed Not Available Not Available Not Available atorvasta tin 80 mg tablet TAKE 1 TABLET BY MOUTH ONCE DAILY active Not Available Not Available No t Available venlafaxi ne ER 37.5 mg capsule,e xtended release 24 hr TAKE ONE CAPSULE EVERY DAY BY ORAL ROUTE FOR FIRST ONE WEEK 10/14 completed Not Available Not Available Not Available venlafaxi ne ER 75 mg capsule,e xtended release 24 hr TAKE ONE CAPSULE EVERY DAY BY ORAL ROUTE. START ON DAY 8 AFTER FINISHIN G EFFEXOR XR 37.5 MG CAPSULE 10/14 completed Not Available Not Available Not Available clindamyc in HCl 300 mg capsule TAKE 1 CAPSULE BY MOUTH THREE TIMES DAILY 12/15 completed Not Available Not Available Not Available atorvasta tin 10 mg tablet TAKE ONE (1) TABLET (10 MG) BY ORAL ROUTE TWICE WEEKLY 05/31 completed Not Available Not Available Not Available pravastat in 40 mg tablet 08/27 completed Not Available Not Available Not Available fluconazo le 150 mg tablet Take 1 tablet by oral route for 1 day. 10/03 completed Not Available Not Available Not Available valacyclo vir 1 gram tablet Take 1 tablet 3 times a day by oral route for 7 days. 08/27 completed Not Available Not Available Not Available hydrocodo ne 5 mg-acetam inophen 325 mg tablet TAKE 1 TABLET BY MOUTH EVERY 6 HOURS NEEDED FOR PAIN active Not Available Not Available No t Available sucralfat e 1 gram tablet TAKE 1 TABLET FOUR TIMES DAILY (BEFORE MEALS & AT BEDTIME) 03/28 completed Not Available Not Available Not Available ondansetr on HCl 4 mg tablet ONE (1) TO TWO (2) TABLETS EVERY 8 HOURS NEEDED FOR NAUSEA 01/11 completed Not Available Not Available Not Available methylpre dnisolone 32 mg tablet TAKE 1 TABLET BY MOUTH [address] SCAN, THEN TAKE 1 TABLET 1-[address] SCAN 12/15 completed Not Available Not Available Not Available prednison e 20 mg tablet 12/11 completed Not Available Not Available Not Available isosorbid e mononitra te ER 30 mg tablet,ex tended release 24 hr TAKE 1 TABLET BY MOUTH EACH MORNING 12/15 completed Not Available Not Available Not Available methylpre dnisolone 4 mg tablet TAKE 6 TABLETS BY MOUTH ONCE DAILY FOR 5 DAYS,THE N 4 TABS ONCE DAILY FOR 5 DAYS,THE N 2 TABS ONCE DAILY FOR 5 DAYS,THE N 1 TAB ONCE DAILY FOR 5 DAYS 07/12 completed Not Available Not Available Not Available meclizine 12.5 mg tablet Take 1 tablet every 12 hours by oral route as needed for 5 days. 02/03 completed Not Available Not Available Not Available clopidogr el 75 mg tablet TAKE 1 TABLET BY MOUTH ONCE DAILY active Not Available Not Available No t Available prochlorp erazine maleate 10 mg tablet TAKE ONE (1) TABLET ORAL ROUTE EVERY 8 HOURS NEEDED active Not Available Not Available No t Available sulfameth oxazole 800 mg-trimet hoprim 160 mg tablet TAKE 1 TABLET EVERY 12 HOURS FOR 7 DAYS 11/27 completed Not Available Not Available Not Available omeprazol e 40 mg capsule,d elayed release 1 capsule q day 04/12 completed omeprazo le 40 mg oral capsule, delayed release( /EC);R ecorded Status: Recorded on: 02/12/20 14 3:25PM;U ser: [email or web address]; Est. Completi on: 04/12/20 14;Print ed: 02/12/20 14 Not Available Not Available Not Available aspirin 81 mg tablet,de layed release Take by oral route for 90 days. active Not Available Not Available No t Available doxycycli ne monohydra te 100 mg tablet TAKE 1 TABLET BY MOUTH TWICE DAILY FOR 10 DAYS 04/05 completed Not Available Not Available Not Available tramadol 50 mg tablet TAKE ONE HALF (1/2) TABLETS EVERY 8 HOURS BY ORAL ROUTE NEEDED FOR 14 DAYS. active Not Available Not Available No t Available acetamino phen 500 mg tablet TAKE ONE (1) TABLET EVERY SIX (6) HOURS BY ORAL ROUTE. 08/16 completed Not Available Not Available Not Available spironola ctone 25 mg tablet take 1 tablet by mouth daily 10/31 completed not taking right nowpresc ribed dr joseph Not Available Not Available Not Available carvedilo l 3.125 mg tablet TAKE 1 TABLET BY MOUTH TWICE DAILY active Not Available Not Available No t Available meloxicam 7.5 mg tablet 08/02 completed Not Available Not Available Not Available Bactrim DS 800 mg-160 mg tablet 1 po bid 11/15 completed Replaced /Retired Drug 800-160 mg oral tablet;R ecorded Status: Recorded on: 07/12/20 08 10:04PM; Disconti nued Status: Disconti nued on: 11/15/19 13 4:21PM;U ser: [email or web address] Not Available Not Available Not Available Zanaflex 4 mg tablet take 1 tablet (4 mg) by oral route every 6 hours as needed not to exceed 3 doses in 24 hours for 10 days 05/25 completed Zanaflex 4 mg oral tablet;R ecorded Status: Recorded on: 04/17/20 15 1:21PM;D iscontin ued Status: Disconti nued on: 05/25/20 15 10:23AM; User: [email or web address] ;Est. Completi on: 05/27/20 15;Indic ation: Muscle Spastici ty of Spinal Origin - ([phone]);Prin chinmay: 04/17/20 15 Not Available Not Available Not Available Metrogel Vaginal 0.75 % (37.5 mg/5 gram) insert 1 applicat orful (37.5 mg) by vaginal route once daily at bedtime for 5 days 05/15 completed Metrogel Vaginal 0.75 % vaginal gel;Pablo rded Status: Recorded on: 03/13/20 14 2:26PM;D iscontin ued Status: Disconti nued on: 05/15/20 14 1:46PM;U ser: max; Printed: 03/13/20 14 Not Available Not Available Not Available Vitamin D3 10 mcg (400 unit) tablet TAKE TWO (2) TABLETS BY MOUTH EVERY DAY 03/28 completed Not Available Not Available Not Available potassium chloride ER 20 mEq tablet,ex tended release(p art/cryst ) 1 tablet once daily per Dr. Joseph 10/31 completed Not Available Not Available Not Available famotidin e 20 mg tablet TAKE 1 TABLET TWICE A DAY. 03/28 completed Not Available Not Available Not Available pravastat in 10 mg tablet TAKE ONE (1) TABLET (10 MG) BY ORAL ROUTE ONCE DAILY 12/15 completed Not Available Not Available Not Available dicyclomi ne 20 mg tablet TAKE 1 TABLET BY MOUTH 3-4 TIMES DAILY 03/28 completed Not Available Not Available Not Available Valium 5 mg tablet 1 to 2 tablets po 30 to 45 minutes before procedur e 10/19 completed Valium 5 mg oral tablet;R ecorded Status: Recorded on: 11/03/19 16 12:45PM; User: [email or web address]; Printed: 11/03/19 16 Not Available Not Available Not Available Multiple Vitamins tablet take 1 tablet by oral route daily 10/19 completed Multiple Vitamins oral tablet;R ecorded Status: Recorded on: 10/27/19 12:41PM; User: arabella Not Available Not Available Not Available doxycycli ne monohydra te 100 mg capsule TAKE ONE (1) CAPSULE TWICE A DAY BY ORAL ROUTE. 05/28 completed Not Available Not Available Not Available pantopraz ole 40 mg tablet,de layed release TAKE 1 TABLET BY MOUTH ONCE DAILY 12/15 completed Not Available Not Available Not Available oseltamiv ir 75 mg capsule TAKE ONE (1) CAPSULE TWICE A DAY BY ORAL ROUTE FOR FIVE (5) DAYS. 01/11 completed Not Available Not Available Not Available buspirone 10 mg tablet TAKE ONE HALF (1/2) TABLET (5mG) TWICE DAILY DIRECTED . 03/28 completed Not Available Not Available Not Available lansopraz ole 30 mg capsule,d elayed release TAKE ONE (1) CAPSULE EVERY DAY BY ORAL ROUTE. 05/31 completed Not Available Not Available Not Available losartan 25 mg tablet TAKE 1 TABLET BY MOUTH ONCE DAILY active Not Available Not Available No t Available nitroglyc quin 0.4 mg sublingua l tablet DISSOLVE ONE TABLET UNDER TONGUE NEEDED FOR CHEST PAIN. MAY REPEAT EVERY 5 MINS X 3 DOSES. NO RELIEF, CALL 03/28 completed Not Available Not Available Not Available sertralin e 25 mg tablet Take 1 tablet every day by oral route for 30 days. 10/03 completed Not Available Not Available Not Available omeprazol e 20 mg capsule,d elayed release TAKE 1 CAPSULE EMPTY STOMACH IN IN THE MORNING 03/06 completed Not Available Not Available Not Available Banophen 25 mg capsule Take 1 capsule as needed by oral route as needed. 10/16 completed Not Available Not Available Not Available Zofran ODT 8 mg disintegr ating tablet Place 1 tablet every 8 hours by translin gual route as needed for 2 days. 01/31 completed Not Available Not Available Not Available diclofena c sodium 75 mg tablet,de layed release take 1 tablet (75 mg) by oral route 2 times per day for 10 days 05/25 completed diclofen ac sodium 75 mg oral tablet,d elayed release (/AVI); Recorded Status: Recorded on: 04/17/20 15 1:21PM;D iscontin ued Status: Disconti nued on: 05/25/20 15 10:23AM; User: lizzie HaneyEstMya Completi on: 05/27/20 15;Indic ation: Muscle Spasm - (728.85) ;Printed : 04/17/20 15 Not Available Not Available Not Available pravastat in 20 mg tablet TAKE 1 TABLET BY MOUTH ONCE DAILY 11/27 completed Not Available Not Available Not Available amoxicill in 400 mg/5 mL oral suspensio n TAKE 10 ML EVERY 8 HOURS BY ORAL ROUTE DIRECTED FOR 7 DAYS. DISCAR D ANY REMAINDE R 10/29 completed Not Available Not Available Not Available mupirocin 2 % topical ointment APPLY A SMALL AMOUNT TO THE AFFECTED AREA BY TOPICAL ROUTE 3 TIMES PER DAY 10/03 completed Not Available Not Available Not Available Monurol 3 gram oral packet 08/27 completed Not Available Not Available Not Available gabapenti n 100 mg capsule take 1 capsule by oral route 3 times a day for 30 days 05/25 completed gabapent in 100 mg oral capsule; Recorded Status: Recorded on: 05/04/20 15 1:46PM;D iscontin ued Status: Disconti nued on: 05/25/20 15 10:23AM; User: [email or web address] lowEst. Completi on: 06/03/20 15;Print ed: 05/04/20 15 Not Available Not Available Not Available metoprolo l succinate ER 25 mg tablet,ex tended release 24 hr TAKE ONE (1) TABLET (25 MG) BY ORAL ROUTE ONCE DAILY 12/15 completed Not Available Not Available Not Available ergocalci ferol (vitamin D2) 1,250 mcg (50,000 unit) capsule TAKE 1 CAPSULE BY MOUTH ONCE WEEKLY 05/25 completed Not Available Not Available Not Available polyethyl abby glycol 3350 17 gram/dose oral powder 10/16 completed Not Available Not Available Not Available methylpre dnisolone 4 mg tablets in a dose pack take as directed for 7 days 08/02 completed Not Available Not Available Not Available ondansetr on 4 mg disintegr ating tablet Place 2 tablets twice a day by translin gual route as needed for 14 days, for nausea, vomiting . 04/08 completed Not Available Not Available Not Available cefdinir 300 mg capsule Take 1 capsule every 12 hours by oral route. 10/31 completed Not Available Not Available Not Available fluticaso ne propionat e 50 mcg/actua tion nasal spray,eloy pension [place] 2 sprays every day by intranas al route. 10/03 completed Not Available Not Available Not Available amoxicill in 875 mg-potass ium clavulana te 125 mg tablet Take 1 tablet every 12 hours by oral route for 7 days. 10/16 completed Not Available Not Available Not Available nicotine 7 mg/24 hr daily transderm al patch 12/29 completed Not Available Not Available Not Available esomepraz ole magnesium 20 mg capsule,d elayed release Take 2 capsules every day by oral route. 05/19 completed Not Available Not Available Not Available meclizine 25 mg chewable tablet TAKE 1/2 TABLET EVERY 12 HOURS NEEDED. 03/28 completed Not Available Not Available Not Available Estrace 0.01% (0.1 mg/gram) vaginal cream 1/2-1 applicat orful qhs for 2 weeks, then decrease to qod 03/18 completed Not Available Not Available Not Available ezetimibe 10 mg tablet TAKE 1 TABLET BY MOUTH AT BEDTIME 05/31 completed Not Available Not Available Not Available cyclobenz aprine 5 mg tablet Take 1 tablet 3 times a day by oral route. 08/02 completed Not Available Not Available Not Available cholestyr amine (with sugar) 4 gram powder for susp in a packet DRINK FOUR (4) GM DISSOLVE D IN WATER TWICE A DAY 05/31 completed Not Available Not Available Not Available rosuvasta tin 40 mg tablet TAKE 1 TABLET BY MOUTH ONCE DAILY active Not Available Not Available No t Available Prilosec OTC 20 mg tablet,de layed release take 1 tablet by oral route 2 times a day for 30 days 02/11 completed Prilosec OTC 20 mg oral tablet,d elayed release (/EC); Recorded Status: Recorded on: 02/12/20 14 3:09PM;D iscontin ued Status: Disconti nued on: 02/12/20 14 3:26PM;U ser: [email or web address];Rosmery jackson. Completi on: 04/12/20 14;Print ed: 02/12/20 14 Not Available Not Available Not Available Zantac 1 daily prn 10/19 completed OTC Zantac 150 mg;Recor ded Status: Recorded on: 02/12/20 14 2:26PM;U ser: [email or web address] ;Indicat ion: - (-5) Not Available Not Available Not Available Benadryl as needed 07/17 completed Not Available Not Available Not Available Vitamin D3 10 mcg (400 unit) capsule Take 2 capsules every day by oral route. 05/31 completed Not Available Not Available Not Available ProAir HFA 90 mcg/actua tion aerosol inhaler INHALE TWO (2) PUFFS EVERY 4-6 HOURS BY INHALATI ON ROUTE NEEDED. 12/15 completed Not Available Not Available Not Available Mucinex 1,200 mg tablet, extended release Take 1 tablet twice a day by oral route for 10 days. 05/23 completed Not Available Not Available Not Available Creon 24,000-76 ,000-120, 000 unit capsule,d elayed release 03/28 completed Not Available Not Available Not Available prasugrel HCl 10 mg tablet 03/26 completed Not Available Not Available Not Available Mucus Relief ER 600 mg tablet, extended release Take 1 tablet every 12 hours by oral route. 10/16 completed Not Available Not Available Not Available Suprep Bowel Prep Kit 17.5 gram-3.13 gram-1.6 gram oral solution 08/18 completed Not Available Not Available Not Available Antacid-A ntigas 200 mg-200 mg-20 mg/5 mL oral suspensio n 03/28 completed Not Available Not Available Not Available Linzess 145 mcg capsule TAKE 1 CAPSULE BY MOUTH ONCE DAILY active Not Available Not Available No t Available Probiotic 20 billion cell capsule Take 1 capsule every day by oral route. 10/16 completed Not Available Not Available Not Available Creon 36,000 unit-114, 000 unit-180, 000 unit capsule,d elayed release TAKE 2 CAPSULES BY MOUTH BEFORE MEALS AND 1 CAPSULE BEFORE SNACKS DIRECTED 12/15 completed Not Available Not Available Not Available Jardiance 10 mg tablet TAKE 1 TABLET BY MOUTH ONCE DAILY IN THE MORNING FOR 30 DAYS 03/28 completed Not Available Not Available Not Available Acidophil us-Pectin 75 million cell-100 mg capsule 10/16 completed Not Available Not Available Not Available Entresto 24 mg-26 mg tablet 03/28 completed Not Available Not Available Not Available Repatha SureClick 140 mg/mL subcutane ous pen injector 1 injectio n once every [address] Joseph 08/27 completed Not Available Not Available Not Available Xarelto 2.5 mg tablet TAKE 1 TABLET BY MOUTH TWICE DAILY active Not Available Not Available No t Available Nexlizet 180 mg-10 mg tablet TAKE 1 TABLET BY MOUTH ONCE DAILY active Not Available Not Available No t Available Vazalore 81 mg capsule TAKE ONE (1) CAPSULE EVERY DAY BY ORAL ROUTE DIRECTED FOR 30 DAYS. 03/28 completed Not Available Not Available Not Available tramadol 25 mg tablet Take 1 tablet every 8 hours by oral route as needed for 14 days. 2023 active Not Available Not Available Not Avai lable Vitals Date Recorded Body height Body mass index (BMI) Body weight Body temperature Respiratory rate Heart rate Oxygen saturation Oxygen saturation in Arterial blood by Pulse oximetry Systolic And Diastolic Provider Name and Address Organization Details Last Updated DateTime 3 160.02 cm 18.5 kg/m2 24000.7 1 g 98.3 [degF] 17 /min 87 /min 99 % 99 % 116/82 mm[Hg] Chiquis Looney [place] - [facility] 3 09:24:23 Date Recorded Body weight Body temperature Respiratory rate Heart rate Oxygen saturation Oxygen saturation in Arterial blood by Pulse oximetry Body mass index (BMI) Body height Systolic And Diastolic Provider Name and Address Organization Details Last Updated DateTime 5 35229.9 8 g 98.2 [degF] 18 /min 83 /min 98 % 98 % 19.1 kg/m2 160.02 cm 144/80 mm[Hg] Shayna Vallecillo [place] - [facility] 5 14:19:59 Date Recorded Body height Respiratory rate Body temperature Body mass index (BMI) Body weight Heart rate Oxygen saturation Oxygen saturation in Arterial blood by Pulse oximetry Systolic And Diastolic Provider Name and Address Organization Details Last Updated DateTime 3 160.02 cm 14 /min 98.1 [degF] 18.4 kg/m2 62456.6 1 g 73 /min 99 % 99 % 132/82 mm[Hg] Yana Kerr [place] - [facility] 3 10:58:48 Date Recorded Body weight Body temperature Heart rate Oxygen saturation Oxygen saturation in Arterial blood by Pulse oximetry Respiratory rate Systolic And Diastolic Provider Name and Address Organization Details Last Updated DateTime 4 38763.0 1 g 98 [degF] 98 /min 98 % 98 % 19 /min 160/96 mm[Hg] Gutierrez Thomas [place] - [facility] 4 09:18:15 Date Recorded Body weight Respiratory rate Body temperature Heart rate Oxygen saturation Oxygen saturation in Arterial blood by Pulse oximetry Systolic And Diastolic Provider Name and Address Organization Details Last Updated DateTime 4 29609.5 7 g 18 /min 98.2 [degF] 105 /min 97 % 97 % 124/80 mm[Hg] Shayna Vallecillo [place] - [facility] 4 08:56:32 Social History Question Answer Notes LastModified by Organizat ion Details LastModified Time Tobacco Smoking Status Former Smoker 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 Yes Information not available 08/27/2021 Do You Have An Advance Directive? No [id number] Information n ot available 07/24/2020 Do You Wear A Helmet When Biking? No Information not available 08/27/2021 Are You Blind Or Do You Have Difficulty Seeing? No Information n ot available 08/27/2021 Is Blood Transfusion Acceptable In An Emergency? Yes [id number] Information not available 07/24/2020 What Is Your Level Of Caffeine Consumption? Moderate [id number] Information not available 07/24/2020 How Much Tobacco Do You Chew? None [id number] Information not available 07/24/2020 In The 14 Days Before Symptom Onset, Have You Had Close Contact With A Laboratory-confirm ed COVID-19 While That Case Was Ill? No Information n ot available 08/27/2021 In The 14 Days Before Symptom Onset, Have You Had Close Contact With A Person Who Is Under Investigation For COVID-19 While That Person Was Ill? No Information not available 08/27/2021 Have You Been To An Area Known To Be High Risk For COVID-19? No Information not available 08/27/2021 Are You Deaf Or Do You Have Serious Difficulty Hearing? No [id number] Information not available 07/24/2020 What Type Of Diet Are You Following? CARDIAC [id number] Information n ot available 07/24/2020 Which Illicit Or Recreational Drugs Have You Used? Denies [id number] Information not available 07/24/2020 Have You Processed Blood Or Body Fluids From An Ebola Virus Disease Patient Without Appropriate PPE? No Information not available 08/27/2021 Do You Reside In Or Have You Traveled To An Area Where Ebola Virus Transmission Is Active? No Information not available 08/27/2021 What Is The Highest Grade Or Level Of School You Have Completed Or The Highest Degree You Have Received? [id number] [email or web address] Information not available 05/31/2021 Swimming/diving Yes Informati on not available 08/27/2021 Have There Been Any Changes To Your Family Or Social Situation? No Information no t available 08/27/2021 What Is The Fluoride Status Of Your Home? Unknown Information not available 08/27/2021 When Did You Quit Smoking? 16+yearssince lastcigarette Information not available 08/27/2021 Hard Of Hearing Or Deaf In One Or Both Ears? No Information not available 08/27/2021 Have You Recently Or Are You Planning To Travel To An Area With Zika Virus? No Information not available 08/27/2021 How Many Years Have You Used Illicit Or Recreational Drugs? 0 Information not available 08/27/2021 Legally Blind In One Or Both Eyes? No Information no t available 08/27/2021 Live Alone Or With Others? With Others Information not available 08/27/2021 Do You Have A Medical Power Of Booky? No Information not available 08/27/2021 What Was The Date Of Your Most Recent Tobacco Screening? 09/30/2024 Information not available 09/30/2024 How Many Children Do You Have? 4 [id number] Information not available 07/24/2020 Performs Monthly Self-breast Exam? Yes Information no t available 08/27/2021 Do You Use Protection During Sex? No Information not available 08/27/2021 What Is Your Relationship Status? [id number] Information not available 07/24/2020 Do You Use Your Seat Belt Or Car Seat Routinely? Yes Information not available 08/27/2021 Seat Belts Used Routinely Yes Information not available 08/27/2021 Are You Sexually Active? Yes Information not available 08/27/2021 Smoke Alarm In Home Yes Information not available 08/27/2021 Do You Have Smoke And Carbon Monoxide Detectors In Your Home? Yes [email or web address] Information not available 05/31/2021 At What Age Did You Start Smoking Tobacco? 18 Information not available 08/27/2021 Are You Passively Exposed To Smoke? No Information no t available 08/27/2021 How Much Tobacco Do You Smoke? No Information not available 08/27/2021 General Stress Level Low Information not available 08/27/2021 Do You Use Sunscreen Routinely? Yes Information not available 08/27/2021 Has Tobacco Cessation Counseling Been Provided? No Information not available 09/30/2024 How Many Years Have You Smoked Tobacco? 40 Information not available 08/27/2021 Do You Have Difficulty Walking Or Climbing Stairs? No Information not available 08/27/2021 Sex: Female Functional Status Question Answer Note LastModified by Organizat ion Details LastModified Time Do you or have you ever used any other forms of tobacco or nicotine? No Information not available 09/30/2024 What is your level of alcohol consumption? None [id number] Information not available 07/24/2020 Do you or have you ever used smokeless tobacco? Never used smokeless tobacco Information not available 08/27/2021 Are you currently employed? No [id number] Information not available 07/24/2020 Do you have transportation difficulties? No Information not available 08/27/2021 Are you able to walk? YESWOREST Information not available 08/27/2021 Do you have difficulty doing errands alone? No Information not available 08/27/2021 Are you able to care for yourself? 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 No Information not available 08/27/2021 Do you or have you ever used e-cigarettes or vape? Never used electronic cigarettes Information not available 08/27/2021 What is your exercise level? Occasional [id number] Information not available 07/24/2020 Mental Status Question Answer Note LastModified by Organizat ion Details LastModified Time Do you feel stressed (tense, restless, nervous, or anxious, or unable to sleep at night)? [id number] Information not available 08/27/2021 Do you have difficulty concentrating, remembering or making decisions? No Information no t available 08/27/2021 Family History Relationship Description Onset Age of this Age Resolved Age Notes LastModified by Organization Details LastModified Time Father Heart disease 52 76 [email or web address] Not available 2020 13:04:24 Father Hypertensive disorder [email or web address] Not available 2016 15:56:50 Mother Hypertensive disorder [email or web address] Not available 2016 15:56:50 Unspecified Relation Disorder of thyroid gland [email or web address] Not available 2016 15:57:07 Medical History Condition Response Pancreatitis N Coronary Artery Disease N Gout N Other N Atrial Fibrillation N congenital heart disease N Kidney Stones N Blood Diseases N Hyperthyroidism N Blood Transfusion N Rheumatoid arthritis N Erectile Dysfunction N amputation N Colonoscopy N Skin Lesions N Depression N COPD N Pneumonia N Incontinence N Murmur N Edema N Alzheimer's Disease N Migraine Headaches N Tobacco Abuse N Anxiety Disorder N Hemorrhoids N Muscle, Joint, or Bone Problems N Obesity N Vision or Eye Problems N Arthritis Y Restless Leg Syndrome N Polyps N Infertility N Mental Disorder N Carpal Tunnel N Acid Reflux (GERD) N Cancer N Varicosities N Stroke N Tendonitis N Crohn's Disease N Hypercholesterolemia Y Skin Cancer N Headaches N Fibromyalgia N Anal Fissure N Irritable Bowel Syndrome Y Kidney Disease N Heart Problems Y Ear or Hearing Problems Y Hospitalizations N Gallstones N Kidney or Bladder Problems Y Goiter N Acne N Skin Problems N Eating Disorder N Hager's Esophagus N Hypertriglyceridemia N MRSA exposure N Constipation Y Embolism N Vitamin B12 Deficiency N Deviated Septum N Tuberculosis N AIDS/HIV N Myocardial Infarction N Asthma N Mitral Valve Disorders N Vertigo N Hepatitis N Thyroid Cancer N Neuropathy N Pulmonary Embolism N History of DVT N Herniated Disc N Chronic Ear Infections N Chicken Pox N Autism Spectrum Disorder (ASD) N Von Willebrands Disease N Thrombophilias N Breast Cancer N Hernia N Plantar Fasciitis N Hospital Admission Other Than N Lung Disease N Hypothyroidism Y Defects or Inherited Disease N Developmental or Behavioral Disorders N Breast Problem N Difficulty Swallowing N Ovarian Cyst N Anesthesia Complications N Testosterone Deficiency N Meniere's disease N Head Injury/Concussion N Interstitial Cystitis N Congenital Anomalies N Hypoglycemia N Blood clot N Vitamin D Deficiency N Cellulitis N Endometriosis N Fracture N Bladder or Kidney Problems N Liver Disease N Panic Disorder N Schizophrenia N Concussion N Spina Bifida N Allergies/Hayfever N Osteoarthritis N Parkinson's Disease N Disc Protrusion N STI N Esophagitis N Angina N Thyroid Problems Y GI Problems N ADD/ADHD N Anemia N Multiple Sclerosis N Abnormal PAP N Lumbago N Mental Illness N Psychiatric Illness N Diabetes N Ovarian Cancer N Bedwetting N Degenerative Disc Disease N Seizures/Epilepsy N Congestive Heart Failure (CHF) N Hyperlipidemia N Syncope N Insomnia N Eczema N Abuse/Domestic Violence N Attention Deficient Disorder N Diverticulitis Y Dementia N Ulcerative colitis N Cerebrovascular Disease N Depression N Guillain-[place] N Sleep Apnea N Aneurysm N Bronchitis N Heart Disease Y Suicidal Ideation N Pre-Eclampsia N Hypertension Y Osteoporosis Y Gynecological History Statement/Question Response Abnormal Pap N Date of Last Mammogram 04/15/2021 Date of LMP 01/07/2010 Post Menopausal Bleeding N STIs/STDs N HPV Vaccine N Duration of Flow (days) 0 Age at Menarche 89 Most Recent Mammogram 04/15/2021 Current Control Method None Age at First Child 21 Last Annual Exam/Provider 05/31/2021 w/DT Last Lipids 2018 If Post Menopausal, Age at Menopause 43 Date of Last Colonoscopy 08/03/2021 Frequency of Cycle (Q days) 0 Sexually Active? Y Menses Monthly N Date of Last Pap Smear 05/31/2021 Sexual Problems? Y LMP Hormone Replacement Therapy N Obstetrics History GPAL:G 5 P 4 0 0 4 Type Value Full Term 4 Living 4 Total 5 Past Encounters Encounter ID Performer Location Encounter Start Date Encounter Closed Date Diagnosis/Indication Diagnosis SNOMED-CT Code Diagnosis ICD10 Code Diagnosis Note [id number] [facility] [address] [place] [address] 04/24/2013 00:00:00 [id number] [facility] [address] [place] [address] 12/30/2013 00:00:00 [id number] [facility] [address] [place] [address] 01/23/2014 00:00:00 [id number] [facility] [address] [place] [address] 02/11/2014 00:00:00 [id number] [facility] [address] [place] [address] 03/13/2014 00:00:00 [id number] [facility] [address] [place] [address] 05/15/2014 00:00:00 [id number] [facility] [address] [place] [address] 05/25/2015 00:00:00 [id number] [facility] [address] [place] [address] 04/25/2005 00:00:00 [id number] [facility] [address] [place] [address] 07/14/2005 00:00:00 [id number] [facility] [address] [place] [address] 09/18/2006 00:00:00 [id number] [facility] [address] [place] [address] 11/15/2012 00:00:00 [id number] [facility] [address] [place] [address] 04/24/2013 00:00:00 [id number] [facility] [address] [place] [address] 05/15/2014 00:00:00 [id number] [facility] [address] [place] [address] 03/05/2004 00:00:00 [id number] [facility] [address] [place] [address] 04/05/2004 00:00:00 [id number] [facility] [address] [place] [address] 09/17/2014 00:00:00 [id number] [facility] [address] [place] [address] 03/01/2005 00:00:00 [id number] [facility] [address] [place] [address] 04/25/2005 00:00:00 [id number] [facility] [address] [place] [address] 09/15/2015 00:00:00 [id number] [facility] [address] [place] [address] 10/27/2015 00:00:00 [id number] [facility] [address] [place] [address] 12/11/2015 00:00:00 [id number] [facility] [address] [place] [address] 04/17/2015 00:00:00 [id number] [facility] [address] [place] [address] 05/04/2015 00:00:00 [id number] [facility] [address] [place] [address] 03/03/2004 00:00:00 [id number] [facility] [address] [place] [address] 03/05/2004 00:00:00 [id number] Tea Romo APRN [address] [place] [address] 10/19/2016 15:45:02 10/19/2016 16:19:43 Thoracic back pain 767524535 M54.6 [id number] Tea Romo APRN [address] [place] [address] 08/02/2017 16:16:33 08/02/2017 17:09:31 Acute sinusitis 44016900 J01.90 [id number] Angelica Payton MD [address] [place] [address] 11/23/2017 15:02:28 11/23/2017 15:59:21 Right flank pain 315651445 R10.9 Right uppe r quadrant pain 845164131 R10.11 Nausea and vomiting 1693 2000 R11.2 [id number] Angelica Payton MD [address] [place] [address] 12/29/2017 08:14:43 12/29/2017 09:25:14 Coronary arteriosclerosis in [place] artery 7800589096 107 I25.10 Hypothyroidism 68600314 E03.9 Screening mammography 24 719923 Z12.31 Ex-smoker 5264604 Z87.89 1 Screening for malignant neoplasm of colon 744653344 Z12.11 Ulcerative colitis 49180 004 K51.90 Dysuria 69150744 R30.0 Vitamin D deficiency 347 52645 E55.9 [id number] SEBASTIÁN Saxena DIRECTOR [employer] [address] [place] [address] [place] [address] 01/31/2018 14:48:17 01/31/2018 15:42:28 Routine gynecologic examination done 5281785340 9101 Z01.419 Depression screening 171 434586 Z13.89 Hypertensi on screening 226117077 Z13.6 Screening for malignant neoplasm of cervix 531062120 Z12.4 Diet education 56206767 Z71.3 Encourage healthy eating/reich it fats, sugars, fried foods Counseling 185013217 Z71 .9 Encouraged regular exercise 30-40min/d ay 4-5 days/wk Body mass index less than 20 414308887 Z68.1 Dyspareunia 83837603 N94 .10 [id number] Kitty Baptiste APRN [place] [employer] [address] [place] [address] [place] [address] 02/08/2018 15:14:40 02/08/2018 16:58:10 Dyspareunia 43397341 N94.10 Irritable bowel syndrome 25545054 K58.9 [id number] Teresa Negro MD [employer] [address] [place] [address] [place] [address] 03/20/2018 14:32:14 03/20/2018 15:26:46 Pruritus of vagina 17056723 L29.3 Atrophy of vagina 829690 009 N95.2 [id number] Angelica Payton MD [address] [place] [address] 03/26/2018 13:20:40 03/26/2018 13:43:41 Dysuria 32714959 R30.0 [id number] Monserrat Escudero MD [address] [place] [address] 05/09/2018 14:53:02 05/09/2018 15:21:45 Disorder of thyroid gland 01632912 E07.9 [id number] Monserrat Escudero MD [address] [place] [address] 09/05/2018 09:37:45 09/05/2018 10:56:40 Coronary arteriosclerosis in [place] artery 7430139362 107 I25.10 Hypothyroidism 80021985 E03.9 Vitamin D deficiency 347 40446 E55.9 History of placement of stent for coronary artery disease 538033298 Z95.5 Sinusitis 69864005 J32.9 Ulcerative colitis 46355 004 K51.90 Screening for malignant neoplasm of colon 334105799 Z12.11 Lesion of nasal mucosa 454608333 J34.89 Blurring o f visual image 417817758 H53.8 Body mass index 20-24 - normal 105649362 Z68.20 [id number] Rashmi Colón APRN [address] [place] [address] 10/03/2018 11:37:54 10/03/2018 11:59:52 Right upper quadrant pain 222844881 R10.11 Nausea and vomiting 1693 1999 R11.2 [id number] Angelica Payton MD [address] [place] [address] 03/18/2019 09:54:47 03/18/2019 11:40:46 Contusion of lower limb 37221590 S80.11XA [id number] Quin Amezcua PA-C [facility] [address] [facility] [address] [place] [address] 07/02/2019 09:07:39 07/02/2019 10:12:32 Aphthous ulcer of mouth 321830748 K12.0 [id number] Johanna England MD [address] [place] [address] 08/27/2019 15:53:59 08/27/2019 17:42:28 Acute cystitis 72615085 N30.01 UA showed small LE and blood. Take antibiotic as prescribed . Monurol was sent first but it required PA. So Monurol was substitute d with Cefdinir. Follow urine culture. See us back or go to the Er right away should get worse or develop any new symptoms or complaints . Follow up with us in 2-3 days Tremor 82448262 R25.1 Will check labs. See us back or go to Er right away should get worse or develop any new symptoms or complaints [id number] Johanna England MD [address] [place] [address] 10/31/2019 14:49:42 10/31/2019 17:11:30 Abdominal pain 27979168 R10.9 Patient has RUQ pain very suggestive of gallbladde r disease. But there are also other conditions in her differenti al and we discussed them in depth. She has RUQ pain with tenderness and nausea. I dont have her hospital records. I recommende d that she should go to hospital emergency department (ER) right now for further evaluation and management . I offered transfer to ER via ambulance but patient declined that. Follow up with us and specialist s after hospital discharge. I also asked her to get RUQ ultrasound as an outpatient if they dont do one in ER. She agrees with above plan. Lesion of liver 70645501 0 K76.[address] Hydroureteronephrosis 40 658117 N13.39 Referred to Urologist [id number] Lissy hurst MD [address] [address] 12/12/2019 15:29:09 12/12/2019 16:45:24 Candidiasis of mouth 58779386 B37.0 [id number] Lissy hurst MD [address] [address] 07/07/2020 14:14:25 07/07/2020 14:41:58 Dysuria 91643178 R30.9 Acute urin corie tract infection 314209326 N39.0 increase fluid intake, make sure when cleaning after a bowel movement she wipes from front to back, and urinate after intercoars e to clean out the urethra. Come back if any worsening symptoms [id number] Lissy hurst MD [address] [address] 08/18/2020 10:29:48 08/18/2020 12:56:21 Pain of multiple joints 91410385 M25.50 Pain of ri ght hip joint 7016476364 72460 M25.551 Vitamin D deficiency 347 70529 E55.9 [id number] Lissy hurst MD [address] [address] 09/14/2020 15:13:30 09/14/2020 16:21:12 Nausea 317079103 R11.0 Suspected COVID-19 49942 4004 Z03.89 -quarantin e instructio ns given to patient, patient voiced understand ing Cough 49201716 R05 Acute bact erial bronchitis 403080918 J20.9 [id number] Quin Amezcua PA-C [address] [address] 10/16/2020 13:41:05 10/16/2020 14:36:00 Folliculitis 36484360 L73.9 [id number] Lissy hurst MD [address] [address] 11/27/2020 10:47:59 11/27/2020 12:09:10 Abdominal pain 54356169 R10.9 [id number] Alka Garcia [address] [place] [address] 12/30/2020 13:48:09 12/30/2020 14:50:38 Viral screening 109209913 Z11.52 Influenza- like symptoms 830830461 R68.89 Nausea 457185250 R11.0 Diverticulitis 114232052 K57.92 [id number] Quin Amezcua PA-C [address] [address] 01/11/2021 11:14:01 01/11/2021 13:29:27 Nausea 564399147 R11.0 COVID-19 104892195 U07.1 [id number] Alka Garcia [employer] [address] [place] [address] 03/01/2021 09:04:04 03/01/2021 09:48:44 Pharyngitis 876395697 J02.9 Posterior rhinorrhea 758 89228 R09.82 Seasonal a llergic rhinitis 251221432 J30.2 [id number] Johanna England MD [address] [place] [address] 03/04/2021 14:35:34 03/04/2021 17:16:15 Abdominal pain 28804283 R10.9 Intermitte nt. She has Esomeprazo le at home and It recommende d she should increase dose from 20 to 40 mg once a day. Referred to GI. Get H Pylori stool antigen. Of note she has abdominal pain and epigastric tenderness at time of encounter with me and I recommende d she should go to a hospital emergency department (ER) right now for further evaluation and management . I offered transfer to ER via ambulance but patient declined that. Follow up with us and GI doctor after hospital discharge. She agrees with the above plan. Gastroesop hageal reflux disease 677496192 K21.9 Discussed lifestyle modificati ons. Esomeprazo le. Referred to GI. Also see above under No-1 Screening for malignant neoplasm of colon 547650779 Z12.11 Options for colon rectal cancer screening were reviewed and discussed with patient. Patient would like to get COLONOSCOP Y. Referred to GI. Screening for malignant neoplasm of breast 459303627 Z12.39 Get mammogram. Would like to see a female provider for breast exam and I asked her to set up an appointmen t for same. Immunization advised 310 838878 Z71.9 Patient has declined to get Td/Tdap, Pneumonia, COVID, Shingles and Influenza vaccines despite counsellin g and education Screening for malignant neoplasm of cervix 577845280 Z12.[address] for pelvic examinatio n and pap smear [id number] Johanna England MD [address] [place] [address] 05/19/2021 09:41:34 05/19/2021 10:50:37 Low back pain 579280494 M54.5 Get XRS and MRI of lumbar spine. Take acetaminop hen as prescribed . Referred for PT. See us back or go to Er right away should get worse or develop any new symptoms or complaints . Follow up with us in six weeks or so. Abdominal pain 22280550 R10.9 Intermitte nt. Stop Pantoprazo le. Take Lansoprazo le as prescribed . Referred to GI. I recommende d that she should seek an immediate medical attention i.e. go to hospital emergency department (ER) right away should get abdominal pain again or any other complaints or symptoms. Dizziness 404892709 R42 Intermitte nt. Referred to ENT. I recommende d that she should seek an immediate medical attention i.e. go to hospital emergency department (ER) right away should get dizziness again Gastroesop hageal reflux disease 380849457 K21.9 Discussed lifestyle modificati ons. Lansoprazo le as prescribed . Referred to GI. See us back or go to ER right away should get worse or develop any new symptoms or complaints . Follow up with us in four weeks or so. Vitamin D deficiency 347 39388 E55.9 Take Vitamin D3 as prescribed . Get Vitamin D 25 (OH) level and then adjust dose of Vitamin D3 if needed Abnormal weight loss 267 899833 R63.4 Will check labs and chest x-rays. F/U with us in a week to discuss test results and further course of action. Immunization advised 310 516332 Z71.9 Patient has declined to get Td/Tdap, Pneumonia, COVID, Shingles and Influenza vaccines despite counsellin g and education Blood in urine 04872673 R31.9 Get renal bladder US and KUB. Referred to Urologist Otalgia of left ear 1089 668010 673086 H92.02 Abnormal f indings on diagnostic imaging of urinary organs 069931130 R93.429 Screening for malignant neoplasm of colon 484643000 Z12.11 Options for colon rectal cancer screening were reviewed and discussed with patient. Patient would like to get COLONOSCOP Y. Referred to GI. Screening for malignant neoplasm of cervix 001111933 Z12.[address] for pelvic examinatio n and pap smear [id number] Kinga Little APRN [address] [place] [address] 05/28/2021 10:49:21 05/28/2021 11:27:37 Body mass index less than 20 695102225 Z68.1 20.4 Microscopic hematuria 19 2379480 R31.29 -UA/UCx pending.-p t has CT pending ordered by Dr England. advised to get this done and f/u.-will do PVR and exam at f/u. Ex-smoker 7751804 Z87.89 1 History of placement of stent for coronary artery disease 734396967 Z95.5 Patient me dical record not available 057576152 Z76.89 [id number] [place] [employer] [address] [place] [address] [place] [address] 05/31/2021 12:44:19 05/31/2021 13:59:33 Routine gynecologic examination done 4301632832 9101 Z01.419 Depression screening 171 835870 Z13.89 Hypertensi on screening 427232784 Z13.6 Screening for malignant neoplasm of cervix 783778992 Z12.4 Diet education 21706953 Z71.3 Encourage healthy eating Counseling 336371693 Z71 .82 Encouraged regular exercise Examinatio n of blood pressure 875278177 Z01.30 Normal bod y mass index 10119892 Z68.20 [id number] Johanna England MD [address] [place] [address] 06/28/2021 17:29:33 06/28/2021 19:10:58 Rectal hemorrhage [id number] K62.5 Patient had rectal bleeding earlier today. She has worsening diarrhea. She also reports dizziness, heart racing, generalize d weakness and presyncope . I recommende d that she should go to the hospital emergency department (ER) right now for further evaluation and management . She was transferre d to ER via ambulance. Follow up with us and GI after hospital discharge. [id number] Johanna England MD [address] [place] [address] 07/07/2021 12:10:42 07/07/2021 15:41:55 Rectal hemorrhage [id number] K62.5 Referred to GI. I recommende d that she should seek immediate medical attention i.e. call 911 and go to hospital emergency department (ER) right away should get rectal bleeding again or any other SXS or complaints . Blood in urine 01702226 R31.9 Referred to Urologist. Lesion of liver 21504688 0 K76.9 Referred to GI Immunization advised 310 514733 Z71.9 Patient has declined to get Pneumonia, COVID, Shingles and Influenza vaccines despite counsellin g and education. Tells me she had Tdap within last 1 year- get records Chronic ob structive pulmonary disease 84088060 J44.9 CT showed emphysema. She doesn't have any symptoms suggestive of COPD. Will call in Proair should she gets need to use Proair. I also recommende d she should seek an immediate medical attention i.e. call 911 and go to ER right away should develop difficulty breathing, wheezing, shortness of air, cough or any other complaints or symptoms. [id number] Johanna England MD [address] [place] [address] 07/14/2021 11:44:17 07/14/2021 14:15:59 Anxiety disorder 032687212 F41.9 ANÍBAL. Take EFFEXOR XR as prescribed . Establish care with a mental health counselor. I counselled patient about the side effects of medication (s). I also recommende d to seek an immediate medical attention i.e. see us or go to (ER) right away should get worse or develop any new symptoms or complaints . Call 911 and go to ER right away should develop any suicidal thoughts. Follow up with us in 2 weeks. Depressive disorder 3548 9007 F32.A Recurrent MDD. Plan is same as for No-1 [id number] Johanna England MD [address] [place] [address] 07/22/2021 12:03:00 07/22/2021 13:33:11 Viral screening 294394782 Z11.52 Rapid COVID is negative. Follow sars-cov-2 , BROOKE result. See us back or go to ER right away should get any symptoms or complaints . [id number] [facility] [address] [place] [address] 08/16/2021 12:56:27 08/16/2021 13:22:51 Thyroid nodule 089818426 E04.1 Patient reports present >2 years has family history of thyroid issues. Patient currently has hypothyroi dism and hyperparat hyroidism. Dysphagia 94291457 R13.1 0 Patient report difficulty swallowing , heartburn, and abdominal pain >5 months [id number] SEBASTIÁN Jasonjaime [facility] [address] [place] [address] 08/27/2021 10:24:19 08/27/2021 11:20:49 Viral screening 516600086 Z11.52 [id number] Ivory Sam APRN [facility] [address] [place] [address] 10/14/2021 09:10:12 10/14/2021 10:16:22 Anxiety 20890702 F41.9 Patient reports daily anxiety that is interferin g with ADLs. Patient discussed this issue with her cardiologi st who suggested buspirone. Acute bila teral otitis media with effusion [id number] 107 H65.193 Patient reports that she has taken amoxicilli n in the past without allergic reaction. [id number] Tano Barbour APRN [place] [address] [place] [address] 10/29/2021 11:33:34 10/29/2021 12:21:25 Viral screening 648520765 Z11.52 [id number] Ivory Sam LINEN CLERK [facility] [address] [place] [address] 12/02/2021 09:00:04 12/02/2021 09:43:18 Viral screening 679269952 Z11.52 [id number] Ivory Sam [facility]N [facility] [address] [place] [address] 12/15/2021 12:53:14 12/15/2021 13:16:24 Vitamin D deficiency 79804938 E55.9 Chronic Essential hypertension 27931770 I10 Patient reports that other forms of aspirin have caused significan t abdominal pain. Hypokalemia 75295245 E87 .6 Patient reports a history of hypokalemi a and hypomagnes emia. Hypothyroidism 96263870 E03.9 Patient has a history of hypothyroi dism but is not currently on medication . [id number] Ivory Sam [facility] [address] [place] [address] 02/25/2022 15:04:35 02/25/2022 15:54:03 Dizziness 932195172 R42 Patient is seeing cardiology , and EKG and labs from ER are normal.Pat catherine reports increased dizziness with vertical occular motion. Kinross-Hallpi ke is negative.F ollow up based on lab and US results Intention tremor 2361515 6 G25.2 Patient reports that she has an intention tremor, dizziness, and brain zaps . Patient reports that the brain zaps only happen when she is up and active. Anxiety 53213041 F41.9 Patient reports daily anxiety that is interferin g with ADLs. Patient discussed this issue with her cardiologi st who suggested buspirone which was tried but patient reports that it caused significan t aching in her joints. Patient reports that she discontinu ed it but continues to experience anxiety over her medical issues. [id number] SEBASTIÁN Jason [facility] [address] [place] [address] 12/05/2022 13:31:11 12/05/2022 14:00:48 Pain of multiple joints 62082958 M25.50 Shoulders, hips, kneesPatie nt requests referral to rheumatolo gy. Explained that rheumatolo gists require positive ERNESTO or Rheumatoid factor before they will schedule.F ollow up based on blood results. 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 Hypothyroidism 36062953 E03.9 History of thyroid disorder 281323520 Z86.39 Viral gastroenteritis 11 6686516 A08.4 Resolved [id number] RUBÉN Zhu [facility] [address] [place] [address] 03/28/2023 10:48:21 03/28/2023 11:40:17 Body mass index less than 20 294625106 Z68.1 18.4 Underweight 881732860 R6 3.6 Murray Moun tain spotted fever 190261992 A77.9 [id number] SEBASTIÁN [facility] [address] [place] [address] 07/12/2024 09:13:01 07/12/2024 10:10:34 Chronic pancreatitis 212547941 K86.1 EKASPER 07/12/24 appropriat eCSA signed 07/12/24 Allergy to food 02646607 1 T78.1XXA Inability to tolerate most foods, Only able to eat ground beef and bread Generalized rash 1107567 06 R21 chest, neck, and abdomen Fatigue 87028049 R53.83 Follow up based on lab results [id number] Ivory Sam APRN There[facility] [address] [place] [address] 09/30/2024 08:38:55 09/30/2024 09:45:02 Cholelithiasis with obstruction 25761385 K80.81 Patient reports going to ER for abdominal pain and was told she has a gallstone obstructin g her bile duct. Patient has a history of cholecyste ctomy.Imag ing not available at time of appointmen t, requesting records.Re ferring to Dr. Durán [id number] Ivory Sam APRN [facility] [address] [place] [address] 03/18/2025 14:00:32 03/18/2025 14:31:57 Body mass index less than 20 775630951 Z68.1 19.1 Underweight 039239532 R6 3.6 Epigastric pain 32224369 R10.13 Patient has tried bentyl, linzess, famotidine and omeprazole without improvemen tPatient has a call out to her GI for follow up appointmen tOffered toradol-pa tient declinedDi scussed labs- patient declinedFo llow up if 1 week if unable to get in with GI provider Nausea and vomiting 1693 1999 R11.2 Chronic-in termittent Health Concerns Section Related Observation LastModified by Organization Detai ls LastModified Time None Recorded Concern Status LastModified by Organization Details LastModified Time None Recorded Advance Directives Directive N: Payers Insurance Date Sequence Insurance Name Policy Number Policy Rain Covered Member ID Rain Member ID Guarantor Name 10/29/2021 1 [facility] [facility] (MEDICAID REPLACEMENT - HMO) BETO Godoyggs [id number] Rosalee Godoyggs 01/23/2017 1 UNSPECIFIED REMIT PAYOR Rosalee Godoyggs 03/17/2025 1 [employer]ICA[place]AC[place] - HMO) Rosalee Schmidts [id number] Rosalee Schmidts 03/17/2025 1 [employer] [place] (MEDICAID REPLAC[place] - HMO) Rosalee Schmidts [id number] Rosalee Schmidts 03/17/2025 [place] [facility] [employer]ILL[employer] (MEDICAID) BETO Godoyggs [id number] Rosalee Marie Ricardo Notes Date Note Type Note Provider Name and Address Organization Details Recorded Time 02/03/2023 text/html Emergency Depart ment Follow-Up RecordReported bypatient.Discharge InformationName of hospital/urgent care patient was seen: ([facility]); Patient presented to hospital/urgent care on or around: actual date 01/26/23; Patient presented to hospital for treatment of: (upper epigastric pain that was radiating into chest with burning sensation.); Treatment received by hospital/urgent care: (BW CT of abdomen EKG IV fluids and medication); Patient's condition has: improved (complaints of having congestion); Hospital records available at the time of this visit: YesNotes: She would like to have thyroid labs and imaging updated today. Tano Barbour, SEBASTIÁN [address], [place], [address], [employer] - [facility] 02/03/2023 10:28:12 03/28/2023 text/html pt states she we nt to [place] last week and states when she came back she noticed a rash on her leg and arms. pt states it doesn't itch all the time and does not hurtPt was camping and Pt does report getting bit by a tickPt denies edwards but reports fuzzy/brain fog Pt denies chest pain, SOA, trouble swallowing, or trouble going to the bathroom. Daria Pham PA-C [address], [place], [address], [place] - [facility] 03/28/2023 11:31:52 07/12/2024 text/html Emergency Depart ment Follow-Up RecordReported bypatient.Discharge InformationName of hospital/urgent care patient was seen: ([facility]); Patient presented to hospital/urgent care on or around: actual date 06/23/2024; Patient presented to hospital for treatment of: (chest pain); Patient's condition has: unchanged; Hospital records available at the time of this visit: Yes Ivory Sam APRN [address], [place], [address], [place] - [facility] 07/12/2024 10:42:21 09/30/2024 text/html Emergency Depart ment Follow-Up RecordReported bypatient.Discharge InformationName of hospital/urgent care patient was seen: ([facility]); Patient presented to hospital/urgent care on or around: actual date 09/28/24; Patient presented to hospital for treatment of: (abdominal pain); Treatment received by hospital/urgent care: (Hydrocodone Zofran); Patient's condition has: unchanged; Hospital records available at the time of this visit: No Rosalee is in the office today to receive a referral to Gastroenterology for an obstructing gallstone. She would like a referral to a doctor in [facility]. Ivory Sam APRN [address], [place], [address], [place] - [facility] 09/30/2024 09:06:17 03/18/2025 text/html Rosalee is in [facility] office today with complaints of RLQ pain. She reports having an ERCP in January and a stent was placed during the procedure.She reports having a cholecystectomy, but still has gallstones.She has called her [employer]'s office to request an appointment, but has not heard back from them yet.She describes the pain as burning, is intermittent and rates it as an 8/10. Ivory Sam APRN [address], [place], [address], [place] - [facility] 03/18/2025 14:33:43 OBGyn Episode No OBEpisode recorded.
--- OUTSIDE RECORDS SUMMARY | 2025-04-08 09:28 | XMS_ITS | Encounter Summary ---
Author Organization Healthcare Address [address] [place] [address] Care Team Providers Care Retail Sales Associate Name Role Phone Alfa Foreman APRN Primary Care Provider [phone] Encounter Details Date Type Department Care Team (Latest Contact Info) Description 03/31/2025 Travel Social History Tobacco Use Types Packs/Day Years [...] on file documented as of this encounter Plan of Treatment Not on file documented as of this encounter Visit Diagnoses Not on filedocumented in this encounter Care Teams Retail Sales Associate Relationship Specialty Start Date End Date Alfa Foreman APRN [address] [place] [address] PCP - General 02/19/21 documented as of this encounter
--- OUTSIDE RECORDS SUMMARY | 2025-04-08 09:28 | XMS_ITS | Clinical Summary ---
Author Organization [facility] ([place], [place], [place], [place]) Address [address] [place] [address] Care Team Providers Care Aml Analyst Name Role Phone Cecy, Ivory SEBASTIÁN Primary Care Provider [phone] Allergies Active Allergy Reactions Criticality Noted Date Comments Clopidogrel Other (See Comments) 07/18/2023 Sacubitril-Valsartan Other (See Comments) 11/24/2022 Hypotension/bradyc ardia Iodinated Contrast Media Swelling High 08/23/2022 Levofloxacin Other (See Comments) Low 01/05/2017 Oiqcoj-Tmxmaczm-Itnsumn 11/24/2022 Lisinopril Other (See Comments) 08/23/2022 Nitrofurantoin Monohyd/M-Cryst Other (See Comments) 08/23/2022 Metoprolol Low 01/05/2017 Other reaction(s): Confused, Confused, Unknown Nitrofurantoin 06/03/2015 Pantoprazole 11/24/2022 Penicillins Other (See Comments) 07/18/2023 Poison Maira Extract Other (See Comments) 07/18/2023 Poison Toano Extract Rash Low 07/18/2023 Xmjspmy-Qpj-Jxt Reductase Inhibitors Swelling High 09/23/2021 Medications aspirin [...] elevated myocardial infarction) 1 11/13/2021 Hypothyroid 08/23/2022 Family History Medical History Relation Name Comments No Known Problem Father No Known Problem Mother Relation Name Status Comments Father Mother Social History Tobacco Use Types Packs/Day Years [...] Date Pablo rded Speak language other than Maldivian at home Not on file 10/27/2023 Want [...] Sexual Orientation Straight 09/12/2022 10 :24 AM [employer]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 Last Filed Vital Signs Vital Sign Reading [...] 10/17/2024 2:41 PM EST Plan of Treatment Health Maintenance Due Date Last Done Comments CT Colonography 1967 Colonoscopy 1967 Colorectal Cancer Screening 1967 FOBT/FIT 1967 Fit-DNA (Cologuard) 1967 Sigmoidoscopy 1967 Depression Screening (12+) 1979 HIV Screening 1982 Hepatitis C Screening 1985 DTAP/TDAP/TD VACCINES (1 - Tdap) 1986 Pneumococcal 50+ years (1 of 2 - PCV) 1986 Pap Smear 1988 Breast Cancer Screening 2007 Shingles Vaccine (Zoster) (1 of 2) 2017 COVID-19 VACCINE (1 - season) 2024 Influenza Vaccine (#1) 2025 Tobacco Cessation Counseling and Screening (12+) 06/2306/23/2024 Lipid Panel 12/11/2027 12/10/2024 Medical Devices Implanted Type Area Transitional Care Nurse Device Identifier Shelf Expiration Date Model / Serial / Lot Defibrillator Panfilo Steward Icd [id number] - [id number] Implanted:Qty: 1 on 01/19/2023 at [facility] PACEMAKER/ ICD BI VALVE DEVICE Chest Wall [facility] LAB:VASC DEV [id number] / / Lead Pcng 58cm 6.8fr 11mmspc 22q/58 - [id number] Implanted:Qty: 1 on 01/19/2023 at [facility] PACEMAKER/ ICD BI VALVE DEVICE Heart ST ANGELICA MED:CARDIAC RHYM MGMT 7122Q/58 / / Lead Tendril Sts 46cm 2087tc/46 - [id number] Implanted:Qty: 1 on 01/19/2023 at [facility] PACEMAKER/ ICD CHAMBER DEVICE Heart ST ANGELICA MED:CARDIAC RHYM MGMT 2087TC/46 / / Insurance [facility] MEDICAID Advance Directives For more information, please contact: [phone] * Full Code (Latest Code Status on File) Date Activated Date Inactivated Comments 09/12/2022 11:01 AM 09/16/2022 4:34 PM If no pulse : No intervention If has pulse: Use intubation, mechanical ventilation, defibrillation, ACLS medications, or cardioversion as indicated. Call NIGHT COORDINATOR * Full Code Date Activated Date Inactivated Comments 09/12/2022 10:57 AM 09/12/2022 11:01 AM -Attempt R esuscitation if person has no pulse and is not breathing. -If no pulse or not breathing attempt CPR/CODE. -Call Rapid Response if patient is in distress. Care Teams Aml Analyst Relationship Specialty Start Date End Date Ivory Sam, SEBASTIÁN [address] [place] [address] (work) PCP - General Nurse Practitioner 01/19/23
--- OUTSIDE RECORDS SUMMARY | 2025-04-08 09:28 | XMS_ITS | Clinical Summary ---
Author Organization [facility] Address [address] [place] [address] Care Team Providers Care Slot Machine Mechanic Name Role Phone Alfa Foreman APRN Primary Care Provider [phone] Allergies Active Allergy Reactions Criticality Noted Date Comments Hydromorphone Nausea 01/28/2025 Iv Contrast Angioedema High 10/25/2024 Chest pain, facial swelling. Has tolerated contrast with premedication in the past Levofloxacin Unknown - Patient states they do not know rxn details Low 01/05/2017 Lisinopril Unknown - Patient states they do not know rxn details Low 01/05/2017 Metoprolol Unknown - Patient states they do not know rxn details Low 01/05/2017 Nitrofurantoin Unknown - Patient states they do not know rxn details Low 01/05/2017 Penicillins Swelling High 01/28/2025 Evolocumab Anaphylaxis High 10/25/2024 Statins Swelling High 09/23/2021 Medications ProAir HFA 108 (90 Base) MCG/ACT inhaler INHALE TWO (2) PUFFS EVERY 4-6 HOURS BY INHALATION ROUTE NEEDED. 1 Active GNP Aspirin Low Dose 81 MG EC tablet TAKE ONE (1) TABLET EVERY DAY 1 Active cholecalciferol 10 MCG (400 UNIT) tablet Take 800 Units by mouth 1 (one) time each day. 1 Active clopidogrel (Plavix) 75 MG tablet TAKE ONE (1) TABLET (75 MG) BY ORAL ROUTE ONCE DAILY 1 Active diphenhydrAMINE (Benadryl Allergy) 25 MG capsule Take 1 capsule by mouth every 6 hours as needed for allergies or itching. 7 Active nitroglycerin (Nitrostat) 0.4 MG SL tablet DISSOLVE ONE TABLET ON TONGUE NEEDED FOR CHEST PAIN. MAY REPEAT EVERY 5 MINS X 3 DOSES. NO RELIEF, CALL 1 Active multivitamin (Theragran-M) tablet Take 1 tablet by mouth daily. Active HYDROcodone-dontae taminophen ([place]) 5-325 MG tablet Take 1 tablet (5 mg of hydrocodone) by mouth 2 (two) times a day if needed for moderate pain. Active Active Problems No known active problems Encounters Date Type Department Care Team Description 03/31/2025 6:47 AM EDT - 03/31/2025 7:09 AM EDT Emergency [facility] [address] [place] [address] Eloped from emergency department (Primary Dx) Discharge Disposition: Elopement 03/31/2025 Travel 01/28/2025 7:37 AM EDT - 01/28/2025 11:59 PM EDT Hospital Encounter [facility] Radiology [address] [place] [address] Biliary calculi, common bile duct Discharge Disposition: Home or Self Care 01/28/2025 7:33 AM EDT Anesthesia Event [facility] Endoscopy [address] [place] [address] Bon Gil MD Hardiman, Steven J, BROADCAST CHECKER 01/28/2025 6:45 AM EDT - 01/28/2025 7:36 AM EDT Hospital Encounter [facility] [address] [place] [address] MD Yi, Chayito W, RN Biliary calculi, common bile duct Discharge Disposition: Home or Self Care 01/28/2025 Travel 01/27/2025 Travel from Last 3 Months Family History Medical History Relation Name Comments Heart disease Father Conversions - Other Mother Back pro blem Thyroid disease Mother Cardiac disorder Other 1 Hypertension Other 2 Thyroid disease Other 3 Thyroid disease Sister Anesthesia problems Neg Hx Malig Hyperthermia Neg Hx Relation Name Status Comments Father Mother Other 1 Other 2 Other 3 Sister Social History Tobacco Use Types Packs/Day Years Used Date Smoking Tobacco: Former Cigarettes Smokeless Tobacco: Never Tobacco Cessation:Counseling Given: Not Answered Comments:Quit smoking 2018 Alcohol Use Standard Drinks/Week Comments Never 0 (1 standard drink = 0.6 oz pur e alcohol) Comments No Sex and Gender Information Value Date Recorded Sex Assigned at Not on file Legal Sex Female 8:23 PM EDT Gender Identity Not on file Sexual Orientation Not on file Last Filed Vital Signs Vital Sign Reading Time Taken Comments Blood Pressure 144/93 03/31/2025 6:46 AM EDT Pulse 97 03/31/2025 6:46 AM EDT Temperature 36.4 C (97.6 F) 03/31/2025 6:46 AM EDT Respiratory Rate 14 03/31/2025 6:46 AM EDT Oxygen Saturation 99% 03/31/2025 6:46 AM EDT Inhaled Oxygen Concentration - - Weight 47.4 kg (104 lb 8 oz) 01/28/2025 7:00 AM EDT Height 162.6 cm (5' 4 ) 01/28/2025 7:00 AM EDT Body Mass Index 17.94 01/28/2025 7:00 AM EDT Plan of Treatment Health Maintenance Due Date Last Done Comments [facility]-Depression Screening 1965 [facility]-HIV Screening 1965 [facility]-Hepatitis C Screening 1965 [facility]-/Child/Adol SDOH Screenings 1965 [facility]- SDOH Screenings 1985 [facility]-Adult SDOH Screenings 1985 [facility]-DTaP,Tdap,and Td Vaccine s (1 - Tdap) 1986 [facility]-Hepatitis B Vaccines (1 of 3 - 19+ 3-dose series) 1986 [facility]-Pap Smear 09/11/1995 09/11/1992 [facility]-Cervical Cancer Screening 09/11/1997 [facility]-HPV/Cotest 09/11/1997 09/11/1992 CT Colonography 2012 Colonoscopy 2012 FIT-DNA 2012 FIT 2012 FOBT 2012 Sigmoidoscopy 2012 [facility]-Colorectal Cancer Screening 2012 [facility]-Breast Cancer Screening 2017 [facility]-Pneumococcal Vaccine: 50 + Years (1 of 1 - PCV) 2017 [facility]-Zoster Vaccines (1 of 2) 2017 NUZ-[id number]-52 Vaccine ( 20 24-25 season) 2024 [facility]-Influenza Vaccine (#1) 2025 HPV Vaccines Aged Out No longer eligi ble based on patient's age to complete this topic [facility]-HIB Vaccines Aged Out No longer e ligible based on patient's age to complete this topic [facility]-Hepatitis A Vaccines Aged Out No longer eligible based on patient's age to complete this topic [facility]-IPV Vaccines Aged Out No longer e ligible based on patient's age to complete this topic [facility]-Rotavirus Vaccines Aged Out No lo nger eligible based on patient's age to complete this topic Medical Devices Implanted Type Area Area Forester Device Identifier Shelf Expiration Date Model / Serial / Lot Stent Biliary Covered 10 X 60 Wallflex - [id number] Implanted:Qty: 1 on 10/30/[address] MD at [facility] Bile Duct [id number] 08/20/2026 [id number] / / [id number] Stent Zimmon 7fr X 7cm - [id number] Implanted:Qty: 1 on 10/30/[address] MD at [facility] Bile Duct [id number] 12/07/2025 [id number] / / [id number] Procedures Procedure Name Priority Date/Time Associated Diagnosis Comments FL ERC Routine 01/28/2025 8:42 AM EDT Biliary calculi, common bile duct ERCP Routine 01/28/2025 8:18 AM EDT Biliary calculi, common bile duct UT AN ELECTIVE ENDOTRACHEAL AIRWAY Routine 01/28/2025 7:41 AM EDT CYTO DATA CONVERSION Routine 09/11/1992 12:00 AM EST from Last 3 Months or Most Recently Relevant to Health Maintenance Results * FL ERC (01/28/2025 8:42 AM EDT) Narrative IMAGING - 01/28/2025 8:42 AM EDT Images were obtained for surgical purposes. See Allan Lane's surgical note in the patient's chart for the findings. us Allan Lane MD IMG FLUOROSCOPY PROCEDURES Fin al Result IMAGING * ERCP 2 - Grade 2 (01/28/2025 8:18 AM EDT) Anatomical Region Laterality Modality Endoscopy Narrative 01/28/2025 8:29 AM EDT Table formatting from the original result was not included. Impression Previously placed metal and plastic biliary stents were removed. Multiple sweeps were performed in the common bile duct. Sludge and multiple stones were removed. The cholangiogram showed a mildy dilated CBD, no filling defect noted after sweeping. The PD was not accessed. No stents placed, Post Procedure Diagnosis Choledocholithiasis Recommendations Other Follow up with referring provider Restart home medications, no anticoagulation or antiplatelet restrictions Restart previous diet tonight Monitor for post-procedure complications abdominal pain, fever, gastrointestinal bleeding and go to ER if present Findings and recommendations discussed with patient Indication Biliary calculi, common bile duct Medications See anesthesia record for anesthesia administered medications. Staff Staff Role Pk Palmer CRNA CRNA Patel, Shawn K, MD Anesthesiologist Allan Lane MD Proceduralist Francisco De La Fuente Endo Vp Software Support Fredy Ramirez MD Proceduralist Chayito Osorio, RN Endo Nurse Preprocedure A history and physical has been performed, and patient medication allergies have been reviewed. The patient's tolerance of previous anesthesia has been reviewed. The risks and benefits of the procedure and the sedation options and risks were discussed with the patient. All questions were answered and informed consent obtained. Details of the Procedure The patient underwent general anesthesia, which was administered by an anesthesia professional. The patient's blood pressure, heart rate, level of consciousness, oxygen and respirations were monitored throughout the procedure. The scope was introduced through the mouth and advanced to the second part of the duodenum. Clinical intention was achieved. The patient experienced no blood loss. The procedure was not difficult. The patient tolerated the procedure well. There were no apparent adverse events. Fluoroscopy was administered by Radiology staff. Attestation I was present for the entire procedure Specimens No specimens were documented in this log. Implants Implants Implant Type Site Status Size Editing User Findings The regulatory scientist film showed a biliary stent. Compliance Analyst image showed one metal and one plastic biliary stent. The duodenoscope was passed under direct vision through the mouth and advanced to the second portion of the duodenum. The major papilla was non-zuni. The major papilla was entirely within a diverticulum. One occluded 10 mm fully covered metal stent was visualized in the common bile duct. The stent was successfully removed using forceps One occluded 7 Fr double pigtail plastic stent was visualized in the common bile duct. The stent was successfully removed using forceps The common bile duct was deeply cannulated using a traction sphincterotome with 270 cm x 0.025 straight guidewire Multiple sweeps were performed in the common bile duct using a 11.5 mm balloon. Sludge and stones were removed, achieving complete clearance. A cholangiogram was performed using a balloon occlusion technique. I personally interpreted the bile duct images. Ductal flow of contrast was adequate. The cholangiogram showed a mildy dilated CBD, no filling defect noted after sweeping. The duodenoscope was withdrawn into the stomach. Fluid and air was suctioned from the stomach. Retroflexion was used to examine the cardia. The duodenoscope was withdrawn form the mouth and the procedure was thus ended. us Allan Lane MD GI PROCEDURE ORDERABLES Final Result * UT AN ELECTIVE ENDOTRACHEAL AIRWAY (01/28/2025 7:41 AM EDT) Narrative Pk Palmer CRNA - 01/28/2025 7:41 AM EDT Pk Palmer CRNA 01/28/2025 7:51 AM Airway Date/Time: 01/28/2025 7:41 AM Reason: elective Airway not difficult General Information and Staff Patient location during procedure: [place] Anesthesiologist: Bon Gil MD BROADCAST CHECKER: Pk Palmer CRNA Performed: BROADCAST CHECKER Patient Condition Indications for airway management: anesthesia Final Airway Details Final airway type: endotracheal airway Successful airway: ETT Cuffed: yes Successful intubation technique: direct laryngoscopy Adjuncts used in placement: intubating stylet Endotracheal tube insertion site: oral Blade: Katie Blade size: #3 ETT size (mm): 6.5 Cormack-Lehane Classification: grade I - full view of glottis Placement verified by: chest auscultation and capnometry Cuff volume (mL): 7 Measured from: lips ETT to lips (cm): 21 Additional Comments Ist attempt by EM resident unsuccessful us Bon Gil MD ANESTHESIA ORDERABLES Final Res ult * Cytology (09/11/1992 12:00 AM EST) 09/11/1992 09/14/1992 Narrative SUNQUEST - 09/22/1992 12:00 AM EST [facility] MR #: [id number] [facility] [place] [place], [place] [address] 1965 (Age: 27) FW Collect Date: 09/11/1992 00:00 Receipt Date: 09/14/1992 00:00 Page 1 DEPARTMENT OF PATHOLOGY AND LABORATORY MEDICINE CYTOPATHOLOGY REPORT Email: [email or web address] * Converted Case * This report may not match the original report format ATTENDING MD/Practitioner: Essence Christiansen MD Service: OB Location: Reported: 09/22/1992 00:00 Collected: 09/11/1992 00:00 INTERPRETATION CERVICAL SCRAPE/ENDOCERVICAL SWAB NO DYSPLASTIC OR MALIGNANT CELLS SEEN. FUNGAL ORGANISMS CONSISTENT WITH JAYY SPECIES. SATISFACTORY FOR INTERPRETATION. Electronically Signed Out ADITI Quarles (ASCP) Eimly Portillo MD Cervical cytology is a screening test primarily for squamous cancers and precursors and has associated false negative and positive results. New technologies such as liquid based sampling may decrease but will not eliminate all false negative results. Regular screening and follow-up of unexplained clinical signs and symptoms are recommended to minimize false negative results. Please see the ASCCP website (www.asccp.org) for followup recommendations. If HPV testing was requested, correlation with the results is suggested (please call Microbiology at [phone] for results). CLINICAL INFORMATION: Menstrual History: {Not Provided} Date of Last Menstrual Period: {Not Provided} SPECIMEN DESCRIPTION: A: CERVICAL/VAGINAL SMEAR, PAP ICD: F: {Not Entered} SNOMED CODES: 1; [id number] In cases where a pathologist has signed out the report, the service has been rendered in part by a resident. The signing pathologist has performed and is responsible for the reported pathologic evaluation. us Historical Provider MD LAB PATHOLOGY ORDERABLES Final Result SUNQUEST from Last 3 Months or Most Recently Relevant to Health Maintenance Insurance [facility] [employer] MEDICAID Care Teams Slot Machine Mechanic Relationship Specialty Start Date End Date Alfa Foreman APRN [address] [place] [address] PCP - General 02/19/21
--- OUTSIDE RECORDS SUMMARY | 2025-04-08 09:28 | XMS_ITS | Data Portability ---
Author Organization [facility] KIKE Aguayo BOLIGEE CLOSED Address [address] [place] [address] Care Team Providers Care Pediatric Genetic Counselor Name Role Phone JAMEY THOMPSON Primary Care Provider [phone] Assessment No assessment recorded. Plan of Treatment Reminders Order Date Submit Date Provider Last Modified By Organization Details Last Modified Time Details Appointments None record ed. Lab None record ed. Referral None record ed. Procedures None record ed. Surgeries None record ed. Imaging None record ed. Medication Orders None record ed. Patient TargetsNo targets recorded. Patient Instructions Encounter Date Encounter Id Patient Instructions Last Modified By Organization Details Last Modified Time 01/31/2023 [id number] Education regarding signs and symptoms of infection provided. wound care education provided. Patient verbalized understanding and agrees to contact our office with any changes in status. Patient will follow up per routine. [email or web address] Not available 01/31/2023 13:31:44 Reason for Referral None Reported. Results Created Date Observation Date Name Description Value Unit Range Abnormal Flag Note LastModifiedBy Organization Detail LastModifiedTime 01/10/2001/09/2023 COMPL ETE BLOOD COUNT white blood cells 6.2 K/uL 3.8-10 .8 normal Not Available [facility] [address] [place], [address], 01/09/2023 18:24:32 01/10/20 23 01/09/2023 COMPL ETE BLOOD COUNT red blood cells 4.44 M/uL 3.80-5 .20 normal Not Available [facility] [address] [place], [address], 01/09/2023 18:24:32 01/10/20 23 01/09/2023 COMPL ETE BLOOD COUNT hemoglobin 13.2 g/dL 12.0-1 6.0 normal Not Available [facility] [address] [place] [address], [address], 01/09/2023 18:24:32 01/10/20 23 01/09/2023 COMPL ETE BLOOD COUNT hematocrit 39.4 % 35.0-4 7.0 normal Not Available [facility] [address] [place] [address], [address], 01/09/2023 18:24:32 01/10/20 23 01/09/2023 COMPL ETE BLOOD COUNT MCV 89 fL 80-100 normal Not Available [facility] [address] [place] [address], [address], 01/09/2023 18:24:32 01/10/20 23 01/09/2023 COMPL ETE BLOOD COUNT MCH 30 pg 26-35 normal Not Available [facility] [address] [place] [address], [address], 01/09/2023 18:24:32 01/10/20 23 01/09/2023 COMPL ETE BLOOD COUNT MCHC 33 g/dL 32-36 normal Not Available [facility] [address] [place] [address], [address], 01/09/2023 18:24:32 01/10/20 23 01/09/2023 COMPL ETE BLOOD COUNT RDW 13.7 % 11.0-1 5.0 normal Not Available [facility] [address] [place] [address], [address], 01/09/2023 18:24:32 01/10/20 23 01/09/2023 COMPL ETE BLOOD COUNT MPV 10.9 fL 6.2-10 .5 high Not Available [facility] [address] [place] [address], [address], 01/09/2023 18:24:32 01/10/20 23 01/09/2023 COMPL ETE BLOOD COUNT platelet count 205 K/uL 130-40 0 normal Not Available [facility] [address] [place] [address], [address], 01/09/2023 18:24:32 01/10/20 23 01/09/2023 COMPL ETE BLOOD COUNT neutrophil,a bsolute 4.2 K/uL 1.6-8. 4 normal Not Available [facility] [address] [place] [address], [address], 01/09/2023 18:24:32 01/10/20 23 01/09/2023 COMPL ETE BLOOD COUNT lymphocyte,a bsolute 1.5 K/uL 0.4-5. 1 normal Not Available [facility] [address] [place] [address], [address], 01/09/2023 18:24:32 01/10/20 23 01/09/2023 COMPL ETE BLOOD COUNT monocyte,abs olute 0.3 K/uL 0.0-1. 2 normal Not Available [facility] [address] [place] [address], [address], 01/09/2023 18:24:32 01/10/20 23 01/09/2023 COMPL ETE BLOOD COUNT eosinophil,a bsolute 0.1 K/uL 0.0-0. 8 normal Not Available [facility] [address] [place] [address], [phone], 01/09/2023 18:24:32 01/10/20 23 01/09/2023 COMPL ETE BLOOD COUNT basophil,abs olute 0.0 K/uL 0.0-0. 3 normal Not Available [facility] [address] [place] [address], [address], 01/09/2023 18:24:32 01/10/20 23 01/09/2023 COMPL ETE BLOOD COUNT % neutrophils 67.6 % 42.0-7 8.0 normal Not Available [facility] [address] [place] [address], [address], 01/09/2023 18:24:32 01/10/20 23 01/09/2023 COMPL ETE BLOOD COUNT % lymphocytes 24.3 % 11.0-4 7.0 normal Not Available [facility] [address] [place] [address], [address], 01/09/2023 18:24:32 01/10/20 23 01/09/2023 COMPL ETE BLOOD COUNT % monocytes 5.1 % 0.0-11 .0 normal Not Available [facility] [address] [place] [address], [address], 01/09/2023 18:24:32 01/10/20 23 01/09/2023 COMPL ETE BLOOD COUNT % eosinophils 2.2 % 0.0-7. 0 normal Not Available [facility] [address] [place] [address], [address], 01/09/2023 18:24:32 01/10/20 23 01/09/2023 COMPL ETE BLOOD COUNT % basophils 0.8 % 0.0-3. 0 normal Not Available [facility] [address] [place] [address], [address], 01/09/2023 18:24:32 01/10/2001/09/2023 COMPL ETE BLOOD COUNT nucleated red cells 0.0 % 0.0-0. 9 normal Not Available [facility] [address] [place] [address], [address], 01/09/2023 18:24:32 01/10/20 23 01/09/2023 COMPL ETE BLOOD COUNT nucleated RBCs, absolute 0.00 K/uL not estab. normal Not Available [facility] [address] [place] [address], [address], 01/09/2023 18:24:32 01/10/2001/09/2023 BASIC METAB OLIC PANEL glucose 99 mg/dL 74-100 normal Not Available [facility] [address] [place] [address], [address], 01/09/2023 18:31:55 01/10/20 23 01/09/2023 BASIC METAB OLIC PANEL blood urea nitrogen 13 mg/dL 6-20 normal Not Available [facility] [address] [place] [address], [address], 01/09/2023 18:31:55 01/10/20 23 01/09/2023 BASIC METAB OLIC PANEL creatinine 0.74 mg/dL 0.50-0 .95 normal Not Available [facility] [address] [place] [address], [address], 01/09/2023 18:31:55 01/10/20 23 01/09/2023 BASIC METAB OLIC PANEL BUN/creatini ne ratio 18 (calc ) 10-20 normal Not Available [facility] [address] [place] [address], [address], 01/09/2023 18:31:55 01/10/20 23 01/09/2023 BASIC METAB OLIC PANEL sodium 139 mmol/ L 136-14 5 normal Not Available [facility] [address] [place] [address], [address], 01/09/2023 18:31:55 01/10/20 23 01/09/2023 BASIC METAB OLIC PANEL potassium 4.4 mmol/ L 3.4-5. 0 normal Not Available [facility] [address] [place] [address], [address], 01/09/2023 18:31:55 01/10/20 23 01/09/2023 BASIC METAB OLIC PANEL chloride 104 mmol/ L 98-107 normal Not Available [facility] [address] [place] [address], [address], 01/09/2023 18:31:55 01/10/20 23 01/09/2023 BASIC METAB OLIC PANEL carbon dioxide 25 mmol/ L 22-31 normal Not Available [facility] [address] [place], [address], 01/09/2023 18:31:55 01/10/20 23 01/09/2023 BASIC METAB OLIC PANEL anion gap 10 (calc ) 7-25 normal Not Available [facility] [address] [place], [address], 01/09/2023 18:31:55 01/10/20 23 01/09/2023 BASIC METAB OLIC PANEL calcium 9.4 mg/dL 8.6-10 .2 normal Not Available [facility] [address] [place], [address], 01/09/2023 18:31:55 01/10/20 23 01/09/2023 BASIC METAB OLIC PANEL GFR 95 >= 60 normal NOT E New calcu latio n for GFR (CKD- EPI 2020) is formu lated witho ut race adjus tment facto rs at the recom menda tion of the [employer] at[employer] and Ameri can Socie ty of Nephr ology . This calcu latio n has not been valid ated in pregn ant women . For pedia tric patie nts refer to https ://tim esparza.junaid lennon.o rg/pr ofess ional s/KDO QI/gf r_cal culat orPed Not Available [facility] [address] [place], [address], 01/09/2023 18:31:55 01/12/20 23 01/09/2023 elect catalina zhang am No observ ation record ed. BARCODE Not Available 2022 06:54:10 02/02/20 23 01/31/2023 devic e check (PROC ) No observ ation record ed. [id number] Not Available 2022 11:33:59 Result Notes None recorded. Problems Name Problem SNOMED Code Status Onset Date Resolution Date Notes Provider Name and Address Organization Details Recorded Time Ischemic congestive cardiomyopathy 555418809 Active 2022 MUGA EF 31% SARAH HAYNES MD [address] [place] [address], [address], [facility] 12:46:00 Orthostatic hypotension 60282143 Active 2022 SARAH HAYNES MD [address] [place] [address], [address], [facility] 12:45:40 Hyperlipidemia 46601652 Active 2022 SARAH HAYNES MD [address] [place] [address], [address], [facility] 12:46:07 Problem Notes None recorded. Procedures Surgical History Date Name Laterality Status Provider Name and Address Organization Details Recorded Time 02/01/20 Device Check completed Leatha Madsen [facility] 01/31/2023 13:31:14 01/10/20 EKG completed Bailey Hagen [facility] 01/09/2023 13:41:20 appendectomy completed [facility] 01/09/2023 13:45:19 cholecystectomy completed Baileyjaylene Hagen [facility] 01/09/2023 13:45:31 Cardiac Catheterization completed Bailey Hagen [facility] 01/09/2023 13:45:42 ligation of fallopian tube completed Bailey Short [facility] 01/09/2023 13:45:48 Imaging Results None recorded. Procedure Notes None recorded. Medical Equipment Implant JENIFFER Issuing Agency Serial Number Lot Number Status Provider Name and Address Organization Details Recorded Time [employer] [place] [id number] Q Y Leatha Madsen [facility] 01/19/2023 09:47:05 Allergies Allergen ID Allergen Name Allergen Category Reaction Reaction Severity Criticality Documentation Date Start Date Code Code System Note Provider Name and Address Organization Details Recorded Time 236170 Iodinated contrast media (substanc e) medicatio n Not available Not available Not available 01/09/2023 98190 2003 SNOMED Bailey Xiao [facility] 13:20:40 982426 Product containin g penicilli n (product) medicatio n Not available Not available Not available 01/09/2023 83576 8001 SNOMED Bailey Hagen [facility] 13:20:52 588228 poison oak extract environme nt Not available Not available Not available 01/09/2023 01261 UNK Bailey Hagen [facility] 13:21:00 286874 poison venkat extract environme nt Not available Not available Not available 01/09/2023 42412 6 RxNorm Bailey Hagen [facility] 13:21:07 366875 Plavix medicatio n Not available Not available Not available 01/09/2023 21795 2 RxNorm Bailey Hagen [facility] 13:46:36 Medications Name Sig Start Date Stop Date Status Note LastModified by Organization Details LastModified Time famotidine 10 mg tablet Take 1 tablet twice a day by oral route. active Not Available Not Available No t Available sucralfate 1 gram tablet Take 1 tablet 4 times a day by oral route as needed. active Not Available Not Available No t Available K-Dur 20 mEq tablet,exten ded release Take 0.5 tablets as needed by oral route. active Not Available Not Available No t Available Jardiance 10 mg tablet Take 1 tablet every day by oral route. 01/09 completed Not Available Not Available Not Available Entresto 24 mg-26 mg tablet Take 1 tablet twice a day by oral route. 01/09 completed Not Available Not Available Not Available Adult Aspirin Regimen 81 mg tablet,delay ed release Take 1 tablet every day by oral route. active Not Available Not Available No t Available Vitals Date Recorded Body height Body mass index (BMI) Body weight Heart rate Systolic blood pressure Diastolic blood pressure Provider Name and Address Organization Details Last Updated DateTime 3 162.56 cm 18.2 kg/m2 37340.7 9 g 81 /min 164 mm[Hg] 84 mm[Hg] Bailey Hagen [facility] 13:50:32 Social History Question Answer Notes LastModified by Organizat ion Details LastModified Time Tobacco Smoking Status Former Smoker Bailey Hagen [facility] 01/09/2023 13:35:23 When Did You Quit Smoking? 6-10yearssin duane tte [email or web address] Information not available 01/09/2023 What Was The Date Of Your Most Recent Tobacco Screening? 01/09/2023 [email or web address] Information not available 01/09/2023 Has Tobacco Cessation Counseling Been Provided? No [email or web address] Information not available 01/09/2023 Sex: Female Functional Status Question Answer Note LastModified by Organization D etails LastModified Time Do you or have you ever used any other forms of tobacco or nicotine? No Information not available 01/09/2023 What is your level of alcohol consumption? None Information not available 01/09/2023 Mental Status None recorded. Family History Relationship Description Onset Age of this Age Resolved Age Notes LastModified by Organization Details LastModified Time Father Heart disease [email or web address] Not available 2022 13:44:56 Medical History Condition Response High Cholesterol Y Cardiac Disease Y Gynecological HistoryNo gynecological history recorded. Obstetrics History GPAL:G 0 P 0 0 0 0 Past Encounters Encounter ID Performer Location Encounter Start Date Encounter Closed Date Diagnosis/Indication Diagnosis SNOMED-CT Code Diagnosis ICD10 Code Diagnosis Note [id number] SARAH HAYNES MD CARDIOLOG [place] [address] [place] [address] 5 01/09/2023 13:35:34 01/09/2023 14:24:27 Dilated cardiomyopathy 401102658 I42.0 Mrs. Young has a dilated cardiomyop athy with [place] [employer] n class II chronic systolic heart failure who cannot tolerate guideline directed medical therapy due to symptomati c hypotensio n. She does however represent an appropriat e candidate for primary prevention ICD therapy and in light of her history of marked bradycardi a would benefit from a dual chamber system. Discussed indication s and procedural details of device implantati on with the patient. The patient understand s and accepts that potential complicati ons include, but are not limited to: , perforatio n, need for emergency surgery, bleeding, pneumothor ax, lead dislodgeme nt, device failure/ma lfunction and wound infection. [id number] SARAH HAYNES MD CARDIOLOG Y [address] [place] [address] 5 01/31/2023 12:16:27 01/31/2023 14:38:24 Health Concerns Section Related Observation LastModified by Organization Detai ls LastModified Time None Recorded Concern Status LastModified by Organization Details LastModified Time None Recorded Advance Directives Directive None Recorded Payers Insurance Date Sequence Insurance Name Policy Number Policy Rain Covered Member ID Rain Member ID Guarantor Name 06/28/2024 1 [facility] (MEDICAID REPLACEMENT - HMO) Rosalee Young [id number] Rosalee Young Notes Date Note Type Note Provider Name and Address Organization Details Recorded Time 01/09/2023 text/html Mrs. Young is a 57 y.o. WF seen in consultation at the request of Dr. Han for primary prevention ICD therapy. She has a DCM with initial angio EF of 20%. By recent Muga it is 31%. Guideline medical therapy have been unsuccessful and thwarted by hypotension. Additional history includes orthostatic hypotension with a POTS response noted on tilt table. She reports of dyspnea on exertion, PND, or edema. She reports that at times she finds her heart rate to be 30 bpm Her father, who had coronary artery disease, suddenly. SARAH HAYNES MD [address] [place] [address], [phone], [facility] 01/09/2023 14:06:19 01/31/2023 text/html DEVICE CHECKReported bypatient.Subjectiv Reta Complaints Device Interrogation:Perfo rming Remote Interrogation Leatha shea, [facility] 01/31/2023 13:31:48 OBGyn Episode No OBEpisode recorded.
[2025-04-08 09:51] LABS: Hematocrit 43.9 % (37.0-47.0); Hemoglobin 13.9 g/dL (12.2-16.2); Immature Granulocytes % 0.2 %; Mean Corpuscular HGB Conc 31.7 g/dL (31.8-35.4); Mean Corpuscular Hemoglobin 28.5 pg (27.0-31.2); Mean Corpuscular Volume 90.1 fl (81-99); Nucleated Red Blood Cells % 0 %; Platelet Count 164 K/mm3 (142-424); Red Blood Count 4.87 M/mm3 (4.20-5.40); Red Cell Distribution Width-SD 45.5 fL; White Blood Count 4.4 K/mm3 (4.8-10.8)
[2025-04-08 10:35] LABS: Albumin Level 4.7 g/dl (3.5-5.0); Chloride 104 mmol/L (98-107); Potassium 4.7 mmoL/L (3.5-5.1)
[2025-04-08 10:37] LABS: Bilirubin,Unconjugated 0.1 mg/dL (0.0-1.1); Blood Urea Nitrogen 11 mg/dl (7-17); Creatinine,Serum 0.80 mg/dl (0.52-1.04); Estimated Glomerular Filt Rate 74 ml/min (>60); GFR (African American) 89 ML/MIN (>60)
[2025-04-08 10:38] LABS: Alanine Aminotransferase 13 U/L (12-78); Alkaline Phosphatase 72 U/L (38-126); Aspartate Amino Transferase 26 U/L (14-36); Bilirubin,Direct 0.2 mg/dl (0.0-0.4); Bilirubin,Indirect 0.2 mg/dL (0.0-0.9); Bilirubin,Total 0.4 mg/dl (0.2-1.3); Calcium 9.7 mg/dl (8.4-10.2); Carbon Dioxide 28 mmol/L (22.0-30.0); Cholesterol 211 mg/dl (140-200); Glucose 97 mg/dl (74-100); HDL Cholesterol 73 mg/dl (40-60); Magnesium 2.1 mg/dl (1.6-2.3); Total Protein,Serum 7.5 g/dl (6.3-8.2); Triglycerides 144 mg/dl (30-150)
[2025-04-08 10:48] LABS: Free T4 (Free Thyroxine) 1.36 ng/dl (0.78-2.19)
[2025-04-08 11:09] LABS: Thyroid Stimulating Hormone 2.33 uIU/mL (0.465-4.68)
[2025-04-08 11:13] LABS: Anion Gap 10.7 mEq/L (5-15); Sodium 138 mmol/L (136-145)
== END 2025-04-08 23:59 | disposition home or self-care (01) ==
LOC: LAB 09:24
PROVIDERS: PCP Nurse Practitioner Family; Visit Provider Nurse Practitioner Family
DX: E78.00 Pure hypercholesterolemia, unspecified (principal); K86.1 Other chronic pancreatitis; G90.A Postural orthostatic tachycardia syndrome [POTS]
CPT/HCPCS: 36415; 80048; 80061; 80076; 83735; 84439; 84443; 85025